=== PATIENT | male | born 1975 | race Caucasian/White ===

== ENCOUNTER 2022-08-24 13:02 | Day surgery (SDC) | payer OTHER, SELFPAY ==
--- NOTE | ~2022-08-24 | CT_ITS ---
EXAMINATION: CT ABDOMEN AND PELVIS WITH CONTRAST CLINICAL INFORMATION: Epigastric pain and vomiting COMPARISON: None available. TECHNIQUE: Multidetector volumetric images were obtained from the superior aspect of the liver through the pubic symphysis following administration 85 mL of Omnipaque 350 intravenous contrast. Sagittal and coronal reformatted images were obtained on the technologist's workstation. Oral contrast: Yes This CT examination was performed using dose optimization techniques as appropriate, variously including the following: *Automated exposure control *Adjustment of mA and/or kV according to patient size (this includes techniques or standardized protocols for targeted exams where dose is matched to indication/reason for exam; i.e. extremities or head) *Use of iterative reconstruction technique DLP: 957 mGy-cm FINDINGS: LUNG BASES: The visualized lung bases are clear. There is increased soft tissue mixed with air questionable for food material seen in the distal thoracic esophagus. There are small posterior mediastinal lymph nodes. No abnormal air collection or fluid collection is seen. LIVER, GALLBLADDER, AND BILIARY TREE: Fatty liver. 1 cm cyst in the right lobe of the liver. Normal gallbladder. No biliary duct dilatation. PANCREAS: Unremarkable. SPLEEN: Unremarkable. ADRENAL GLANDS: Unremarkable. KIDNEYS AND URETERS: I lateral renal cysts. No imaging follow-up recommended. The kidneys are otherwise normal. BLADDER: Unremarkable. GASTROINTESTINAL TRACT: Diverticulosis of the colon. No evidence of diverticulitis. The small and large bowel are otherwise unremarkable. The stomach is unremarkable. The appendix is unremarkable. ABDOMINAL WALL: Unremarkable. LYMPH NODES: Normal. VASCULAR: Unremarkable. PELVIC VISCERA: Unremarkable. OSSEOUS STRUCTURES: CT/CT abdomen pelvis w IV con IMPRESSION: Question food material seen in the distal thoracic esophagus. No wall thickening or adjacent abnormal fluid or air. Small adjacent posterior mediastinal lymph nodes. Fatty liver. Small liver and renal cysts. Diverticulosis of the colon. Fleischner guidelines were followed.
--- NOTE | 2022-08-24 13:24 | ED_ITS ---
HPI - General Adult General Chief complaint: Nausea/Vomiting/Diarrhea Stated complaint: spasm causing vomiting chest pain per ems Time Seen by Provider: 08/24/22 13:23 Source: patient Mode of arrival: ambulatory Limitations: no limitations History of Present Illness HPI narrative: Patient is a 47 year old assigned male at with no reported medical history presenting to the emergency department today with vomiting and possibly stuck steak. Patient states that approximately 20 hours ago, he ate a piece of steak and it never fully went down. Patient states that now whenever he tries to eat or drink, he throws up. Patient denies any dizziness, lightheadedness, abdominal pain, fever, chills, blurry vision, double vision, loss of vision, chest pain, difficulty breathing, shortness of breath, back pain, night sweats, pain with urination, increased urinary frequency, increased urinary urgency, blood in his urine or stool, syncope or a near syncopal episode, recent trauma or falls, bowel incontinence, bladder incontinence, bowel retention, bladder retention, or any other complaints at this time. Onset (ago): hour(s) Relieving factors: none Associated symptoms: denies other symptoms Treatments prior to arrival: none Related Data Allergies Allergy/AdvReac Type Severity Reaction Status Date / Time No Known Allergies Allergy Verified 08/24/22 13:28 Review of Systems Constitutional: Constitutional: Reports no additional constitutional complai nts, Denies chills, Denies fever(s) and Denies night sweats Eyes: Eyes: Reports no additional eye complaints, Denies blurry vision, Denies change in vision, Denies diplopia, Denies eye discharge, Denies loss of vision and Denies eye pain ENT: Denies dizziness Cardiovascular: Cardiovascular: Reports no additional cardiovascular complaints, Denies chest pain, Denies lightheadedness, Denies Loss of Consciousness and Denies dyspnea Respiratory: Respiratory: Reports no additional respiratory complaints and D enies dyspnea Gastrointestinal: Gastrointestinal: Reports no additional gastrointestinal complaints, Denies abdominal pain, Denies melena, Denies hematochezia, Denies change in bowel habits, Denies change in stool character and Reports vomiting Genitourinary: Genitourinary: Reports no additional male genitourinary complaints, Denies hematuria, Denies oliguria, Denies difficulty urinating, Denies dysuria, Denies urinary frequency, Denies urinary hesitancy, Denies urinary incontinence and Denies urinary urgency Musculoskeletal: Musculoskeletal: Reports no additional musculoskeletal complaints, Denies numbness and Denies tingling Neurologic: Denies dizziness, Denies loss of vision, Denies numbness and Denies tingling Psychiatric: Psychiatric: Reports no additional psychiatric complaints Endocrine: Endocrine: Reports no additional endocrine complaints Hematologic/Lymphatic: Hematologic/Lymphatic: Reports no additional hematologic/lymphatic complaints Allergic/Immunologic: Allergic/Immunologic: Reports no additional allergic/immunologic complaints [facility] Social History Social History Alcohol intake: current Alcohol intake frequency: a few times a week Alcohol type: hard liquor Patient Tobacco Use Status: Never used Tobacco Smoked in Last 30 Days: No Use of substances other than those prescribed or required for medical reasons: No Advance Directives: No Recently lost weight without trying: No Nutrition Risks: No Nutritional Risk Physical Exam ED Vital Signs: Vital Signs - 24 hr 08/24/22 13:25 08/24/22 16:25 Temperature 97.9 F 97.0 F Pulse Rate 87 80 Respiratory Rate 18 16 Blood Pressure 180/106 H 126/99 H Pulse Oximetry 100 98 Oxygen Delivery Method Room Air Room Air BMI result Body Mass Index 36.8 Medications Administered Discontinued Medications Generic Name Dose Route Start Last Admin Trade Name Freq PRN Reason Stop Dose Admin Al Hydroxide/Mg Hydroxide 15 ml 08/24/22 13:30 08/24/22 15:06 Magnesium Hydrox/Alum Hydrox 30 Ml Oral.Susp PO 08/24/22 13:31 Not Given ONCE ONE Glucagon 0.5 mg 08/24/22 13:54 08/24/22 14:08 Glucagon,Human Recombinant 1 Mg/Ml Vial IVPUSH 08/24/22 13:55 0.5 mg ONCE ONE Administration Sodium Chloride 1,000 mls @ 999 mls/hr 08/24/22 13:30 08/24/22 15:00 Ns IV 08/24/22 14:30 Infused .Q1H1M SULEIMAN Infusion Iohexol 100 ml 08/24/22 15:18 08/24/22 15:18 Iohexol 350 Mg/Ml 100 Ml Infus..Btl IV 08/24/22 15:19 85 ml ONCE ONE Administration Lidocaine HCl 15 ml 08/24/22 13:30 08/24/22 15:06 Lidocaine Hcl Viscous 2 % 15 Ml Solution MUCOUS MEM 08/24/22 13:31 Not Given ONCE ONE Nitroglycerin 0.4 mg 08/24/22 13:33 08/24/22 13:40 Nitroglycerin 0.4 Mg Tab.Subl SUBLINGUAL 08/24/22 13:34 0.4 mg ONCE ONE Administration Pantoprazole Sodium 40 mg 08/24/22 13:30 08/24/22 13:41 Pantoprazole Sodium 40 Mg/10 Ml Vial IVPUSH 08/24/22 13:31 40 mg ONCE ONE Administration Medical Decision Making Medical Decision Making [facility] Narrative: Patient is a 47 year old assigned male at with no reported medical history presenting to the emergency department today with a possibly stuck piece of steak. Patient's physical exam showed an individual unable to tolerate PO fluids. Patient's blood work was unremarkable. Patient's abdominal/pelvis CT showed a probable food bolus. Patient was given IV Glucagon and PO Nitro however, the patient was unable to tolerate the PO nitro. I called and spoke to the GI team on all who recommended the patient be sent to the OR for an endoscopy. I explained my physical exam findings as well as all test results to the patient and the patient's . I answered all questions asked by the patient and the patient's . Patient and the patient's verbalized agreement and understanding with this treatment plan and transfer to the OR for an endoscopy. . Differential Diagnosis Differential Diagnoses: The differential diagnosis associated with the presentation includes food bolus Consult Healthcare Provider Management of the patient was discussed with: Collateral Analyst (spoke to the GI team as noted in the MDM portion of this chart) Lab Data [facility] Lab Attestation statement: I reviewed the patient's lab results. 08/24/22 14:07 08/24/22 14:07 Labs: Lab Results 08/24/22 08/24/22 08/24/22 Range/Units 14:07 14:07 14:07 WBC 9.2 (4.8-10.8) X10*3/uL RBC 5.48 (4.60-5.80) X10*6/uL Hgb 15.9 (14.0-18.0) g/dl Hct 47.0 (42.0-52.0) % MCV 85.8 (80.0-98.0) fL MCH 29.0 (27.0-33.0) pg MCHC 33.8 (31.0-36.0) g/dl RDW 12.7 (11.0-16.0) % Plt Count 249 (160-400) X10*3/uL MPV 10.4 (9.4-12.4) fL Immature Gran % (Auto) 0.3 (0.0-0.4) % Neut % (Auto) 75.1 H (45-73) % Lymph % (Auto) 17.3 L (20-40) % [place] % (Auto) 6.2 (2-11) % Eos % (Auto) 0.7 (0-4) % Baso % (Auto) 0.4 (0-2) % Lymph # (Auto) 1.6 (1.2-4.9) X10*3/uL [place] # (Auto) 0.6 (0.1-1.2) X10*3/uL Eos # (Auto) 0.1 (0.0-0.4) X10*3/uL Baso # (Auto) 0.0 (0.0-0.2) X10*3/uL Abs Immat Gran (auto) 0.03 (0.00-0.03) X10*3/uL Absolute Neuts (auto) 6.9 (2.0-8.3) x10*3/uL Absolute Nucleated RBC 0.000 (0.0-0.012) X10*3/uL Nucleated RBC % (auto) 0.0 (0.0-0.2) /100WBC Sodium 144 (135-145) mmol/L Potassium 3.7 (3.3-5.1) mmol/L Chloride 111 H (96-108) mmol/L Carbon Dioxide 23 (22-29) mmol/L Anion Gap 14 (12-20) BUN 16 (9-16) mg/dL Creatinine 0.88 (0.5-1.4) mg/dL Estim Creat Clear Calc 132.0 Estimated GFR > 60 Random Glucose 111 (60-115) mg/dL Calcium 9.2 (8.4-10.2) mg/dL Magnesium 2.1 (1.6-2.6) mg/dL Total Bilirubin 0.6 (0.0-1.0) mg/dL AST 27 (5-37) U/L ALT 33 (0-40) U/L Alkaline Phosphatase 68 (39-117) U/L Troponin I High Sens (<3.5-35.0) ng/L B-Natriuretic Peptide 33 (<100) pg/mL Total Protein 7.6 (6.5-8.0) g/dL Albumin 4.3 (3.5-5.0) g/dL 08/24/22 Range/Units 14:07 WBC (4.8-10.8) X10*3/uL RBC (4.60-5.80) X10*6/uL Hgb (14.0-18.0) g/dl Hct (42.0-52.0) % MCV (80.0-98.0) fL MCH (27.0-33.0) pg MCHC (31.0-36.0) g/dl RDW (11.0-16.0) % Plt Count (160-400) X10*3/uL MPV (9.4-12.4) fL Immature Gran % (Auto) (0.0-0.4) % Neut % (Auto) (45-73) % Lymph % (Auto) (20-40) % [place] % (Auto) (2-11) % Eos % (Auto) (0-4) % Baso % (Auto) (0-2) % Lymph # (Auto) (1.2-4.9) X10*3/uL [place] # (Auto) (0.1-1.2) X10*3/uL Eos # (Auto) (0.0-0.4) X10*3/uL Baso # (Auto) (0.0-0.2) X10*3/uL Abs Immat Gran (auto) (0.00-0.03) X10*3/uL Absolute Neuts (auto) (2.0-8.3) x10*3/uL Absolute Nucleated RBC (0.0-0.012) X10*3/uL Nucleated RBC % (auto) (0.0-0.2) /100WBC Sodium (135-145) mmol/L Potassium (3.3-5.1) mmol/L Chloride (96-108) mmol/L Carbon Dioxide (22-29) mmol/L Anion Gap (12-20) BUN (9-16) mg/dL Creatinine (0.5-1.4) mg/dL Estim Creat Clear Calc Estimated GFR Random Glucose (60-115) mg/dL Calcium (8.4-10.2) mg/dL Magnesium (1.6-2.6) mg/dL Total Bilirubin (0.0-1.0) mg/dL AST (5-37) U/L ALT (0-40) U/L Alkaline Phosphatase (39-117) U/L Troponin I High Sens 4.5 (<3.5-35.0) ng/L B-Natriuretic Peptide (<100) pg/mL Total Protein (6.5-8.0) g/dL Albumin (3.5-5.0) g/dL Independent Interpretation I performed an independent interpretation of an: CT Scan Interpretation: My interpretation is in agreement with the radiologist's impression of this imaging study. EXAMINATION: CT ABDOMEN AND PELVIS WITH CONTRAST? CLINICAL INFORMATION: Epigastric pain and vomiting? COMPARISON: None available. TECHNIQUE: Multidetector volumetric images were obtained from the superior aspect of the liver through the pubic symphysis following administration 85 mL of Omnipaque 350 intravenous contrast. Sagittal and coronal reformatted images were obtained on the technologist's workstation.? Oral contrast: Yes This CT examination was performed using dose optimization techniques as appropriate, variously including the following: *Automated exposure control *Adjustment of mA and/or kV according to patient size (this includes techniques or standardized protocols for targeted exams where dose is matched to indication/reason for exam; i.e. extremities or head) *Use of iterative reconstruction technique DLP: 957 mGy-cm FINDINGS: LUNG BASES: The visualized lung bases are clear. There is increased soft tissue mixed with air questionable for food material seen in the distal thoracic esophagus. There are small posterior mediastinal lymph nodes. No abnormal air collection or fluid collection is seen. LIVER, GALLBLADDER, AND BILIARY TREE: Fatty liver. 1 cm cyst in the right lobe of the liver. Normal gallbladder. No biliary duct dilatation. PANCREAS: Unremarkable.? SPLEEN: Unremarkable.? ADRENAL GLANDS: Unremarkable.? KIDNEYS AND URETERS: I lateral renal cysts. No imaging follow-up recommended. The kidneys are otherwise normal.? BLADDER: Unremarkable.? GASTROINTESTINAL TRACT: Diverticulosis of the colon. No evidence of diverticulitis. The small and large bowel are otherwise unremarkable. The stomach is unremarkable. The appendix is unremarkable.? ABDOMINAL WALL: Unremarkable. LYMPH NODES: Normal. VASCULAR: Unremarkable. PELVIC VISCERA: Unremarkable.? OSSEOUS STRUCTURES: CT/CT abdomen pelvis w IV con IMPRESSION: Question food material seen in the distal thoracic esophagus. No wall thickening or adjacent abnormal fluid or air. Small adjacent posterior mediastinal lymph nodes. Fatty liver. Small liver and renal cysts. Diverticulosis of the colon. ? Fleischner guidelines were followed. Dictated By: Pao Powers MD Signed By: Electronically signed by Pao Powers MD 08/24/22 3714 Independent Historian Clinical information obtained from an independent historian. History obtained from or confirmed by: Spouse Critical Care Time Critical Care Time Critical Care Time: Yes Total Critical Care Time: 45 Attestation: I spent 45 minutes of Critical Care Time with this patient. This does not i nclude time spent on separately reported billable procedures. Discharge Plan Discharge Clinical Impression: Food bolus obstruction of intestine Patient Disposition: Xfer Other Transfer Details: transfer to surgery
[2022-08-24 13:25] VITALS: BP 180/100; BP 180/106; PULSE 70; PULSE 87; RESP 18; TEMP 36.6; O2SAT 100; O2SAT 97; BMI 30.6
--- NOTE | 2022-08-24 13:30 | ECG_ITS ---
Test Reason : epigrastric pain Blood Pressure : / mmHG Vent. Rate : 078 BPM Atrial Rate : 078 BPM P-R Int : 128 ms QRS Dur : 086 ms QT Int : 386 ms P-R-T Axes : 018 -24 026 degrees QTc Int : 440 ms Normal sinus rhythm with sinus arrhythmia Moderate voltage criteria for LVH, may be normal variant ( R in aVL , Derrell product ) Borderline ECG No previous ECGs available Referred By: Danni Dang Electronically Signed By:JULISSA HERNANDEZ
[2022-08-24] MEDS: Nitroglycerin 0.4 MG TAB.SUBL SUBLINGUAL (13:40)
[2022-08-24] MEDS: Pantoprazole Sodium 40 MG/10 ML VIAL IVPUSH (13:41)
[2022-08-24] MEDS: 0.9 % Sodium Chloride 1,000 ML 999 ML IV (13:43)
[2022-08-24 14:14] LABS: MANUAL DIFF FLAG NO
[2022-08-24 14:15] LABS: Basophils Percent Auto 0.4 % (0-2); Eosinophils Absolute Auto 0.1 X10*3/uL (0.0-0.4); Eosinophils Percent Auto 0.7 % (0-4); Hemoglobin 15.9 g/dl (14.0-18.0); Imm Gran Abs Auto 0.03 X10*3/uL (0.00-0.03); Imm Gran Pct Auto 0.3 % (0.0-0.4); Lymphocytes Absolute Auto 1.6 X10*3/uL (1.2-4.9); Lymphocytes Percent Auto 17.3 % (20-40); Mean Corpuscular HGB Conc 33.8 g/dl (31.0-36.0); Mean Corpuscular Volume 85.8 fL (80.0-98.0); Mean Platelet Volume 10.4 fL (9.4-12.4); Monocytes Absolute Auto 0.6 X10*3/uL (0.1-1.2); Monocytes Percent Auto 6.2 % (2-11); Neutrophils Absolute Auto 6.9 x10*3/uL (2.0-8.3); Neutrophils Percent Auto 75.1 % (45-73); Platelet Count 249 X10*3/uL (160-400); Red Blood Count 5.48 X10*6/uL (4.60-5.80); Red Cell Distribution Width 12.7 % (11.0-16.0); White Blood Count 9.2 X10*3/uL (4.8-10.8)
[2022-08-24 14:34] LABS: Alanine Aminotransferase 33 U/L (0-40); Albumin Level 4.3 g/dL (3.5-5.0); Alkaline Phosphatase 68 U/L (39-117); Anion Gap 14 (12-20); Aspartate Amino Transferase 27 U/L (5-37); Bilirubin Total 0.6 mg/dL (0.0-1.0); Blood Urea Nitrogen 16 mg/dL (9-16); Calcium 9.2 mg/dL (8.4-10.2); Carbon Dioxide 23 mmol/L (22-29); Chloride 111 mmol/L (96-108); Estimated Glomerular Filt Rate > 60; Glucose Random 111 mg/dL (60-115); Magnesium 2.1 mg/dL (1.6-2.6); Potassium 3.7 mmol/L (3.3-5.1); Sodium 144 mmol/L (135-145); Total Protein 7.6 g/dL (6.5-8.0)
--- NOTE | 2022-08-24 14:38 | PC.NURSE ---
Per Danni RUIZ: Hold GI cocktail until Glucogen IV works or 2nd Dose Oral nitro is administered.
[2022-08-24 14:39] LABS: B Type Natriuretic Peptide 33 pg/mL (<100)
[2022-08-24 14:41] LABS: Troponin-I High Sensitivity 4.5 ng/L (<3.5-35.0)
[2022-08-24] MEDS: iohexoL 350 MG/ML 100 ML INFUS..BTL IV (15:18)
[2022-08-24 16:25] VITALS: BP 126/99; PULSE 80; RESP 16; TEMP 36.1; O2SAT 98
[2022-08-24 17:21] VITALS: BMI 36.8
--- NOTE | 2022-08-24 18:06 | PM.EVENT ---
Event Note Date of Service: 08/24/22 Event Note: GI consult dictated EGD for removal of foreign body. Patient is aware of risks and benefits and agrees to proceed Time Spent With Patient Time: Total time managing care of this patient today ____ minutes.
--- NOTE | 2022-08-24 18:08 | MHC.SHP ---
Pre-Procedural Eval Section A Date of Service: 08/24/22 The patient is an INPATIENT: No Changes since office visit: No Cold of Flu in the past 2 weeks, No New Medical Problems, No Changes in Medication and No Patient answered all questions The History & Physical has been completed within 30 days and I have reviewed it.: Yes Section B Chief Complaint: spasm causing vomiting chest pain per ems Allergies: Allergies Allergy/AdvReac Type Severity Reaction Status Date / Time No Known Allergies Allergy Verified 08/24/22 13:28 Plan I have reviewed the history and physical and performed a pertinent physical examination on my patient. No changes have occurred unless specified. Time Spent With Patient Time: Total time managing care of this patient today ____ minutes.
--- NOTE | 2022-08-24 18:10 | HO.ANESPROP2 ---
HPI - Anesthesia Eval Consult details Narrative: food bolus [facility] Family History Family history of problems with anesthesia: No Surgical History History of Problems with Anesthesia: No Social History Social History Alcohol intake: current Alcohol intake frequency: a few times a week Alcohol type: hard liquor Patient Tobacco Use Status: Never used Tobacco Smoked in Last 30 Days: No Use of substances other than those prescribed or required for medical reasons: No Advance Directives: No Recently lost weight without trying: No Nutrition Risks: No Nutritional Risk Meds Allergies Allergy/AdvReac Type Severity Reaction Status Date / Time No Known Allergies Allergy Verified 08/24/22 13:28 Exam Exam Date and Time: August 24, 2022 1810 Height,Weight and Vital Signs: Height 6 ft 1 in Weight 126.552 kg Last Vital Signs Temp 97.0 F 08/24/22 16:25 Pulse 80 08/24/22 16:25 Resp 16 08/24/22 16:25 BP 126/99 H 08/24/22 16:25 Pulse Ox 98 08/24/22 16:25 O2 Del Method Room Air 08/24/22 16:25 Pertinent Lab Results Pertinent Lab Results: Laboratory Tests 08/24/22 08/24/22 08/24/22 14:07 14:07 14:07 WBC 9.2 RBC 5.48 Hgb 15.9 Hct 47.0 MCV 85.8 MCH 29.0 MCHC 33.8 RDW 12.7 Plt Count 249 MPV 10.4 Immature Gran % (Auto) 0.3 Neut % (Auto) 75.1 H Lymph % (Auto) 17.3 L [place] % (Auto) 6.2 Eos % (Auto) 0.7 Baso % (Auto) 0.4 Lymph # (Auto) 1.6 [place] # (Auto) 0.6 Eos # (Auto) 0.1 Baso # (Auto) 0.0 Abs Immat Gran (auto) 0.03 Absolute Neuts (auto) 6.9 Absolute Nucleated RBC 0.000 Nucleated RBC % (auto) 0.0 Sodium 144 Potassium 3.7 Chloride 111 H Carbon Dioxide 23 Anion Gap 14 BUN 16 Creatinine 0.88 Estim Creat Clear Calc 132.0 Estimated GFR > 60 Random Glucose 111 Calcium 9.2 Magnesium 2.1 Total Bilirubin 0.6 AST 27 ALT 33 Alkaline Phosphatase 68 Troponin I High Sens B-Natriuretic Peptide 33 Total Protein 7.6 Albumin 4.3 08/24/22 14:07 WBC RBC Hgb Hct MCV MCH MCHC RDW Plt Count MPV Immature Gran % (Auto) Neut % (Auto) Lymph % (Auto) [place] % (Auto) Eos % (Auto) Baso % (Auto) Lymph # (Auto) [place] # (Auto) Eos # (Auto) Baso # (Auto) Abs Immat Gran (auto) Absolute Neuts (auto) Absolute Nucleated RBC Nucleated RBC % (auto) Sodium Potassium Chloride Carbon Dioxide Anion Gap BUN Creatinine Estim Creat Clear Calc Estimated GFR Random Glucose Calcium Magnesium Total Bilirubin AST ALT Alkaline Phosphatase Troponin I High Sens 4.5 B-Natriuretic Peptide Total Protein Albumin Airway Mallampati Class: II TM Dist: >3cm Neck ROM: Full Loose/Missing/Broken Teeth: Yes and Upper (some broken molars, stable though) Heart: RRR Lungs: CTA Assessment and Plan Assessment Anesthesia Assessment: Anesthesia Plan Discussed and Chart Reviewed Final Anesthetic Review Family History of Problems with Anesthesia: No History of Problems with Anesthesia: No NPO: No ASA Class: II Final Preanesthetic Review: No Changes in Pt Med Stat, Meds/Allgs Chart Reviewed, Consent Obtained/Reviewed and Anes Risks/Benef Reviewed Patient Risk: Intermediate Procedure Risk: Low Anesthetic Plan Anesthetic Plan: MAC: Disposition: Standard PACU
--- NOTE | 2022-08-24 18:42 | PC.NURSE ---
Patient was brought to PACU for endoscopy at 1700 this evening. this RN had no contact w/ patient
[2022-08-24 18:48] VITALS: BP 158/90; PULSE 76; RESP 16; TEMP 36.5; O2SAT 94
--- NOTE | 2022-08-24 18:49 | PM.OP ---
Brief Operative Note Date of Service: 08/24/22 Pre-op diagnosis: fb esophagus Post-op diagnosis: same Surgeon: Amari Funk Anesthesia: MAC Was an Hair Worker used for this Procedure?: No Estimated blood loss (mL): 2 Pathology: none sent Condition: stable Disposition: PACU
[2022-08-24 19:01] VITALS: BP 156/86; PULSE 62; RESP 16; TEMP 36.5; O2SAT 96
--- NOTE | 2022-08-25 04:01 | CONS_ITS ---
DATE OF SERVICE: 08/24/2022 REFERRING PHYSICIAN: SARA Alvarez REASON FOR CONSULTATION: Foreign body of the esophagus. HISTORY OF PRESENT ILLNESS: The patient is a pleasant 47-year-old man, who was admitted to the emergency department with complaints of dysphagia, which began yesterday when he swallowed steak. This became impacted and he has been unable to swallow solid food or liquid sense. He has had history of esophageal dysphagia in the past, but generally things have passed on their own. He has not had endoscopy in the past. He does use [id number] antacids on a p.r.n. basis. PAST MEDICAL HISTORY: He denies other medical or surgical illnesses. His blood pressure has been noted to be elevated in the preop area. CURRENT MEDICATIONS: None. ALLERGIES: NONE. FAMILY HISTORY: This is reviewed with the patient and is noncontributory. SOCIAL HISTORY: There is no current tobacco use. Alcohol use is 2 to 3 drinks per day on the weekend with his last alcohol being the day before the food impaction started. REVIEW OF SYSTEMS: SKIN: No pruritus. HEENT: Negative. CARDIOPULMONARY: No shortness of breath or chest pain. GASTROINTESTINAL: As above. GENITOURINARY: Negative. NEUROPSYCHIATRIC: Negative. PHYSICAL EXAMINATION: GENERAL: Shows a pleasant male, sitting comfortably on a stretcher. VITAL SIGNS: Reviewed in the electronic medical record and are stable. SKIN: Anicteric. HEENT: Shows no scleral icterus. NECK: Without lymphadenopathy or thyromegaly. LUNGS: Clear. HEART: Shows a regular rate and rhythm. S1, S2. No murmur. ABDOMEN: Soft without focal masses or tenderness. Bowel sounds are present. No organomegaly is noted. EXTREMITIES: Without edema. IMPRESSION: Foreign body of the esophagus. PLAN: Upper endoscopy. Risks and benefits of the procedure have been discussed with the patient who understands and agrees to proceed. MD EMBER Villafuerte/LIDIA / [id number]
--- NOTE | 2022-08-25 04:06 | OP_ITS ---
DATE OF SERVICE: 08/24/2022 SURGEON: Amari Funk MD INDICATIONS: Foreign body in the esophagus, medications. PREOPERATIVE DIAGNOSIS: POSTOPERATIVE DIAGNOSIS: PROCEDURE PERFORMED: Upper endoscopy with removal of esophageal foreign body. ESTIMATED BLOOD LOSS: COMPLICATIONS: ANESTHESIA: Monitored anesthesia care. ASSISTANTS: SPECIMENS: DESCRIPTION OF PROCEDURE: A history and physical was performed. The risks and benefits of the procedure were explained to the patient. Informed consent was obtained. The patient was placed in the left lateral decubitus position. The Olympus video gastroscope was introduced into the esophagus, stomach, and duodenum. Examination was performed. The scope was removed. He tolerated the procedure well and was returned to recovery area in stable condition. FINDINGS: Esophagus: There was a large food bolus impacted in the distal esophagus. This was gently pushed through into the stomach. There was some associated ulceration at the EG junction and a questionable small slight Schatzki ring. The scope did pass easily through into the stomach. Stomach: The stomach was normal. Duodenum: The bulb and second portion were normal. IMPRESSION: Esophageal food bolus as above. RECOMMENDATION: 1. Begin omeprazole 20 mg daily. 2. Repeat endoscopy in 12 weeks for reassessment of esophagitis and possible balloon dilation if necessary. MD EMBER Villafuerte/MODL / [id number]
== END 2022-08-24 19:04 | disposition home or self-care (01) ==
LOC: HO.ED 18:00 → HO.SSS 18:26
PROVIDERS: Physician Assistant Medical; Emergency Provider Emergency Medicine; Visit Provider Internal Medicine Gastroenterology
PROC: 0DJ08ZZ Inspection of Upper Intestinal Tract, Via Natural or Artificial Opening Endoscopic (ICD-10-PCS; CPT 43235; principal; 2022-08-24 18:00)
DX: T18.128A Food in esophagus causing other injury, initial encounter (principal); X58.XXXA Exposure to other specified factors, initial encounter; Y93.89 Activity, other specified; Y92.9 Unspecified place or not applicable; Y99.8 Other external cause status; R03.0 Elevated blood-pressure reading, without diagnosis of hypertension
CPT/HCPCS: 43247; 36415; 74177; 80053; 83735; 83880; 84484; 85025; 93005; 96361; 96374; 96375; 99285; J1610; J3010; Q9967

== ENCOUNTER 2022-11-17 07:41 | Day surgery (SDC) | payer OTHER, SELFPAY ==
[2022-11-17 07:49] VITALS: BMI 35.3
[2022-11-17 08:00] VITALS: BP 147/96; PULSE 67; RESP 20; TEMP 36.6; O2SAT 96
[2022-11-17] MEDS: Lactated Ringers 1,000 ML 100 ML IVCONT (08:12)
--- NOTE | 2022-11-17 08:31 | HO.ANESPROP2 ---
[facility] Past Medical History Medical History History of asthma Tooth ache Family History Family history of problems with anesthesia: No Surgical History Surgical History History of esophagogastroduodenoscopy (EGD) [place] teeth extracted History of Problems with Anesthesia: No Social History Social History Alcohol intake: current Alcohol intake frequency: a few times a week Alcohol type: hard liquor Patient Tobacco Use Status: Never used Tobacco Are you DNR?: No Advance Directives: No Advance Directives Information Provided: Yes Recently lost weight without trying: No Nutrition Risks: No Nutritional Risk Meds Allergies Allergy/AdvReac Type Severity Reaction Status Date / Time No Known Allergies Allergy Verified 08/24/22 13:28 Active Medications: Current Medications Lactated Ringer's (Lr) 1,000 mls @ 100 mls/hr IVCONT .Q10H SULEIMAN Last Admin: 11/17/22 08:12 Dose: 100 mls/hr Exam Exam Date and Time: November 17, 2022 0831 Height,Weight and Vital Signs: Height 6 ft 2 in Weight 124.738 kg Last Vital Signs Temp 98 F 11/17/22 08:00 Pulse 67 11/17/22 08:00 Resp 20 11/17/22 08:00 BP 147/96 H 11/17/22 08:00 Pulse Ox 96 11/17/22 08:00 O2 Del Method Room Air 11/17/22 08:00 Airway Mallampati Class: II TM Dist: >3cm Neck ROM: Full Loose/Missing/Broken Teeth: No Heart: RRR Lungs: CTA Assessment and Plan Assessment Anesthesia Assessment: Anesthesia Plan Discussed and Chart Reviewed Final Anesthetic Review Family History of Problems with Anesthesia: No History of Problems with Anesthesia: No NPO: Yes ASA Class: II Final Preanesthetic Review: Meds/Allgs Chart Reviewed, Consent Obtained/Reviewed and Anes Risks/Benef Reviewed Patient Risk: Low Procedure Risk: Intermediate Anesthetic Plan Anesthetic Plan: MAC: Disposition: Standard PACU
--- NOTE | 2022-11-17 08:36 | PC.NURSE ---
pt sts swallowed gauge fron his tooth extraction around midnight and took naproxen wednesday anesthesia aware
--- NOTE | 2022-11-17 09:17 | PM.OP ---
Brief Operative Note Date of Service: 11/17/22 Pre-op diagnosis: dysphagia Post-op diagnosis: same Procedure: EGD Surgeon: Amari Funk Anesthesia: MAC Was an Continuous Improvement Coordinator used for this Procedure?: No Estimated blood loss (mL): 5 Pathology: other Condition: stable Disposition: PACU
[2022-11-17 09:24] VITALS: BP 124/75; PULSE 82; RESP 18; TEMP 36.4; O2SAT 96
[2022-11-17 09:40] VITALS: BP 137/84; PULSE 61; RESP 18; TEMP 36.1; O2SAT 96
--- NOTE | 2022-11-17 12:35 | OP_ITS ---
DATE OF SERVICE: 11/17/2022 SURGEON: Amari Funk MD INDICATIONS: History of dysphagia and esophageal obstruction. PREOPERATIVE DIAGNOSIS: POSTOPERATIVE DIAGNOSIS: PROCEDURE PERFORMED: Upper endoscopy with biopsy and balloon dilation. ESTIMATED BLOOD LOSS: COMPLICATIONS: ANESTHESIA: Monitored anesthesia care. ASSISTANTS: SPECIMENS: DESCRIPTION OF PROCEDURE: A history and physical was performed. The risks and benefits of the procedure were explained to the patient. Informed consent was obtained. The patient was placed in the left lateral decubitus position. The Olympus video gastroscope was introduced into the esophagus, stomach, and duodenum. Examination was performed. The scope was removed. He tolerated the procedure well and was returned to the recovery area in stable condition. 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 Biopsies were obtained after balloon dilation. There was a nonobstructive Schatzki ring at the EG junction and a 3 cm hiatal hernia. Balloon dilation of the ring to 18 and 20 mm was performed through the scope with no immediate complications. Stomach: The stomach was normal. Duodenum: The bulb and 2nd portion were normal. IMPRESSION: 1. Schatzki ring. 2. Hiatal hernia. RECOMMENDATION: Follow up the biopsy results. MD EMBER Villafuerte/LIDIA / [phone]
== END 2022-11-17 09:54 | disposition home or self-care (01) ==
PROVIDERS: Visit Provider Internal Medicine Gastroenterology
PROC: 0DJ08ZZ Inspection of Upper Intestinal Tract, Via Natural or Artificial Opening Endoscopic (ICD-10-PCS; CPT 43235; principal; 2022-11-17 08:50)
DX: R13.10 Dysphagia, unspecified (principal); K22.2 Esophageal obstruction; K21.9 Gastro-esophageal reflux disease without esophagitis; K44.9 Diaphragmatic hernia without obstruction or gangrene
CPT/HCPCS: 43249; 43239; 88305; C1726; J0330; J3010

== ENCOUNTER 2023-12-08 07:49 | Inpatient (IN) | payer MEDICAID, SELFPAY ==
[2023-12-08] VITALS (7 sets, daily range): BP systolic 118–147; BP diastolic 57–87; PULSE 77–99; RESP 16–20; TEMP 36.5–37.2; O2SAT 94–98; BMI 37.3; BMI 37.8
--- NOTE | ~2023-12-08 | CT_ITS ---
EXAMINATION: CT ABDOMEN AND PELVIS WITH CONTRAST CLINICAL INFORMATION: Abdominal pain COMPARISON: August 24, 2022 TECHNIQUE: Multidetector volumetric images were obtained from the superior aspect of the liver through the pubic symphysis following administration 85 mL of Omnipaque 350 intravenous contrast. Sagittal and coronal reformatted images were obtained on the technologist's workstation. Oral contrast: No This CT examination was performed using dose optimization techniques as appropriate, variously including the following: *Automated exposure control *Adjustment of mA and/or kV according to patient size (this includes techniques or standardized protocols for targeted exams where dose is matched to indication/reason for exam; i.e. extremities or head) *Use of iterative reconstruction technique DLP: 1020 mGy-cm FINDINGS: LUNG BASES: There is dense acoustic atelectasis at the right lung base LIVER, GALLBLADDER, AND BILIARY TREE: Liver is somewhat attenuation due to hepatic steatosis and enlarged. There are no intrahepatic masses or ductal dilatation. The gallbladder is unremarkable with no evidence of radiopaque gallstones, gallbladder wall thickening, or obvious pericholecystic inflammatory changes. PANCREAS: Unremarkable. SPLEEN: Spleen is mildly enlarged, measuring 14.2 cm ADRENAL GLANDS: Unremarkable. KIDNEYS AND URETERS: There is perinephric stranding on the right with questionable subcapsular fluid collection possibly due to hematoma versus abscess. The collection measured 8.2 x 6.3 x 3.8 cm. There is no hydronephrosis or nephrolithiasis. There is cyst visualized medially in the lower pole, measured 2.2 x 1.6 cm. Left kidney revealed small cyst in the lower pole. BLADDER: Unremarkable. GASTROINTESTINAL TRACT: The small and large bowel are unremarkable. The appendix is unremarkable. ABDOMINAL WALL: No significant hernia is appreciated. LYMPH NODES: Normal. VASCULAR: Unremarkable. PELVIC VISCERA: Unremarkable. OSSEOUS STRUCTURES: Unremarkable. CT/CT abdomen pelvis w IV con IMPRESSION: 1. Right perinephric stranding with questionable subcapsular fluid collection possibly due to hematoma versus abscess. 2. Right basilar atelectasis. 3. Hepatosplenomegaly. 4. Bilateral renal cysts. Fleischner guidelines were followed. Electronically signed by: Lizzeth Santana MD 12/08/2023 02:37 PM EDT
--- NOTE | ~2023-12-08 | US_ITS ---
EXAMINATION: US RETROPERITONEAL COMPLETE (RENAL) CLINICAL INFORMATION: Follow-up right renal subcapsular collection. COMPARISON: CT abdomen/pelvis 12/08/2023. TECHNIQUE: Real-time imaging of the kidneys and bladder. FINDINGS: Limited examination secondary to patient body habitus, motion and overlying bowel gas. RIGHT KIDNEY: 12.8 x 5.8 x 5 cm (SAG x AP x TRV). Redemonstration of complex subcapsular collection measuring 7.7 x 3 x 5.9 cm, minimally decreased compared to recent CT where it measured up to 8.4 cm, although accurate size comparison is limited due to differences in modality. No hydronephrosis. LEFT KIDNEY: 14.6 x 5.9 x 5.6 cm (SAG x AP x TRV). The kidney is normal in size, contour, and echogenicity. Renal cortical thickness is normal. No hydronephrosis. Simple appearing 1.2 cm cyst in the lower pole. Nonobstructive 0.6 cm calculus in the interpolar region. US/US renal BI IMPRESSION: Limited examination secondary to patient body habitus, motion and overlying bowel gas. 1. Redemonstration of complex subcapsular collection in the right kidney, minimally decreased in size compared to recent CT. 2. Nonobstructive 0.6 cm calculus in the interpolar region of the left kidney. Electronically signed by: Alexa Sahu MD 12/11/2023 10:52 AM EDT
[2023-12-08 08:32] LABS: Basophils Absolute Auto 0.1 X10*3/uL (0.0-0.2); Basophils Percent Auto 0.4 % (0-2); Eosinophils Absolute Auto 0.1 X10*3/uL (0.0-0.4); Eosinophils Percent Auto 0.5 % (0-4); Hematocrit 39.7 % (42.0-52.0); Hemoglobin 13.6 g/dl (14.0-18.0); Imm Gran Abs Auto 0.09 X10*3/uL (0.00-0.03); Imm Gran Pct Auto 0.6 % (0.0-0.4); Lymphocytes Absolute Auto 1.6 X10*3/uL (1.2-4.9); Lymphocytes Percent Auto 10.2 % (20-40); MANUAL DIFF FLAG SCAN; Mean Corpuscular HGB Conc 34.3 g/dl (31.0-36.0); Mean Corpuscular Hemoglobin 29.2 pg (27.0-33.0); Mean Corpuscular Volume 85.4 fL (80.0-98.0); Mean Platelet Volume 9.6 fL (9.4-12.4); Monocytes Absolute Auto 1.5 X10*3/uL (0.1-1.2); Monocytes Percent Auto 9.9 % (2-11); Neutrophils Absolute Auto 12.1 x10*3/uL (2.0-8.3); Neutrophils Percent Auto 78.4 % (45-73); Platelet Count 287 X10*3/uL (160-400); Red Blood Count 4.65 X10*6/uL (4.60-5.80); SCAN SMEAR FLAG 1; White Blood Count 15.4 X10*3/uL (4.8-10.8)
[2023-12-08 08:45] LABS: Alanine Aminotransferase 15 U/L (0-40); Albumin Level 3.6 g/dL (3.5-5.0); Alkaline Phosphatase 71 U/L (39-117); Anion Gap 13 (12-20); Aspartate Amino Transferase 28 U/L (5-37); Bilirubin Direct 0.3 mg/dL (0.0-0.5); Bilirubin Total 0.7 mg/dL (0.0-1.0); Blood Urea Nitrogen 19 mg/dL (9-16); Carbon Dioxide 26 mmol/L (22-29); Chloride 101 mmol/L (96-108); Creatinine Clr Calc Pharmacy 104.7; Estimated Glomerular Filt Rate > 60; Glucose Random 119 mg/dL (60-115); Lipase 24 U/L (8-78); Potassium 4.3 mmol/L (3.3-5.1); Sodium 136 mmol/L (135-145); Total Protein 8.5 g/dL (6.5-8.0)
--- NOTE | 2023-12-08 09:24 | PC.NURSE ---
a&ox4. vss and up to date. pt presents to the ED w/ constant right sided flank pain radiating to across lower abdomen x . pt reports going to clinic - prescribed abx - currently finishing course at this time. did not take dose this am. pt advised to come to ED if pain increases. pt reports pain is a 6/10 pain at rest but 10/10 pain w/ increased movement. pt endorses nausea w/ increased pain. denies any diarrhea/fever/chills. 20gIV placed in the right AC. labs obtained in triage. no sob/wob noted. respirations even/unlabored. plan of care ongoing. call stephen placed within reach.
--- NOTE | 2023-12-08 09:28 | ED.GENADULT ---
HPI - General Adult General Chief complaint: Abdominal Pain Stated complaint: infection refusing antibiotics Time Seen by Provider: 12/08/23 09:28 Source: patient Mode of arrival: ambulatory Limitations: no limitations History of Present Illness ED Provider: Danni Dang PA-C HPI narrative: 48 year old male with medical history of asthma presents to the ED for concerns of new onset right sided flank pain that started 6 days ago. He reports visiting a walk-in clinic for right sided flank pain on 12/02 and they suggested it might be kidney stones versus an infection of his kidney. He received Bactrim from the walk-in clinic which he is currently taking and was told if symptoms worsen or don't improve he should report to the ED for further evaluation. He states the flank pain never improved so he decided to report to the ED. He reports feeling feverish yesterday however did not check his temperature at home. He denies, chills, nausea, vomiting, increase in urinary frequency, dysuria, dizziness, falls or trauma. Onset (ago): day(s) (6) Location: right (flank) Severity: moderate Severity scale (1-10): 6 Pain Consistency: constant Relieving factors: none Exacerbating factors: none Associated symptoms: denies other symptoms Treatments prior to arrival: other (Bactrim) Related Data Home Medications ?Medication ?Instructions ?Recorded ?Confirmed omeprazole 20 mg tablet,delayed 20 mg PO DAILY 12/08/23 12/08/23 release sulfamethoxazole 800 1 tab PO BID 12/08/23 12/08/23 mg-trimethoprim 160 mg tablet Allergies Allergy/AdvReac Type Severity Reaction Status Date / Time No Known Allergies Allergy Verified 12/08/23 08:09 Review of Systems Constitutional: Constitutional: Reports no additional constitutional complaints, Denies chills, Denies fever(s) and Denies night sweats Eyes: Eyes: Reports no additional eye complaints, Denies blurry vision, Denies change in vision, Denies diplopia, Denies eye discharge, Denies loss of vision and Denies eye pain ENT: Denies dizziness Cardiovascular: Cardiovascular: Reports no additional cardiovascular complaints, Denies chest pain, Denies lightheadedness, Denies Loss of Consciousness and Denies dyspnea Respiratory: Respiratory: Reports no additional respiratory complaints and Denies dyspnea Gastrointestinal: Gastrointestinal: Reports no additional gastrointestinal complaints, Denies abdominal pain, Denies melena, Denies hematochezia, Denies change in bowel habits and Denies change in stool character Genitourinary: Genitourinary: Reports no additional male genitourinary complaints, Denies hematuria, Denies oliguria, Denies difficulty urinating, Denies dysuria, Denies urinary frequency, Denies urinary hesitancy, Denies urinary incontinence and Denies urinary urgency Comments: right flank pain Musculoskeletal: Musculoskeletal: Reports no additional musculoskeletal complaints, Denies numbness and Denies tingling Neurologic: Denies dizziness, Denies loss of vision, Denies numbness and Denies tingling Psychiatric: Psychiatric: Reports no additional psychiatric complaints Endocrine: Endocrine: Reports no additional endocrine complaints Hematologic/Lymphatic: Hematologic/Lymphatic: Reports no additional hematologic/lymphatic complaints Allergic/Immunologic: Allergic/Immunologic: Reports no additional allergic/immunologic complaints [facility] Past Medical History Attestation statement: The following information was validated with the patient. Source: old records reviewed and nursing notes reviewed Medical History Tooth ache History of asthma Surgical History [place] teeth extracted History of esophagogastroduodenoscopy (EGD) Social History Social History Alcohol intake: current Alcohol intake frequency: holidays/special occasions only Alcohol type: hard liquor Patient Tobacco Use Status: Never used Tobacco Smoked in Last 30 Days: No Use of substances other than those prescribed or required for medical reasons: No Advance Directives: No Advance Directives Information Provided: No Do you have a plan to hurt others: No Plan Physical Exam ED Vital Signs: Vital Signs - 24 hr 12/08/23 08:04 12/08/23 10:00 12/08/23 12:00 Temperature 98.8 F 98.2 F 98.8 F Pulse Rate 88 85 77 Respiratory Rate 18 18 18 Blood Pressure 143/84 H 138/78 143/86 H Pulse Oximetry 94 97 98 Oxygen Delivery Method Room Air Room Air Room Air 12/08/23 14:00 Temperature 98.7 F Pulse Rate 80 Respiratory Rate 18 Blood Pressure 144/85 H Pulse Oximetry 98 Oxygen Delivery Method Room Air BMI result Body Mass Index 37.3 Const General: cooperative, no acute distress, alert and awake Nutritional Appearance: well nourished Orientation/consciousness: patient oriented x3 Limitations: no limitations HENMT Head: Yes normal to inspection and Yes atraumatic Ears: hearing grossly normal bilaterally and external ears normal General nose exam: Normal external nose present, no nasal discharge noted and no epistaxis Face and sinus: Yes normal facial exam, No abrasion and No laceration Mouth: Normal oral and palatal mucosa present, no drooling and no muffled voice Eyes General: appearance normal, both eyes and all related structures Periorbital: periorbital findings normal Eyelids: Yes eyelids normal Conjunctivae: conjunctivae normal Pupils: Equal, round and reactive pupils present EOM: EOMs intact bilaterally Neck Neck: Yes normal visual inspection, Yes full ROM and Yes no lymphadenopathy Chest Chest palpation & inspection: normal inspection of the chest Resp Effort & Inspection: normal respiratory effort and able to speak in complete sentences GI Inspection: Yes normal to inspection Neuro General: patient oriented x3 and moves all extremities Cranial nerves: Yes Equal, round and reactive pupils present Cognition (Neuro): normal cognition Extrem General: Yes normal to inspection, Yes full ROM and Yes capillary refill normal Psych Appearance: grossly normal Mental Status: mental status grossly normal Affect: normal affect Attitude: cooperative Thought process: Normal thought process present Thought content: Normal thought content present Insight: Good insight present (Psych) Medications Administered Discontinued Medications Generic Name Dose Route Start Last Admin Trade Name Freq PRN Reason Stop Dose Admin Sodium Chloride 1,000 mls @ 999 mls/hr 12/08/23 09:45 12/08/23 12:32 Ns IV 12/08/23 10:45 Infused .Q1H1M SULEIMAN Infusion Ceftriaxone Sodium 1 gm/ 50 mls @ 100 mls/hr 12/08/23 15:01 12/08/23 15:57 Sodium Chloride IV 12/08/23 15:30 Infused ONCE ONE Infusion Iohexol 100 ml 12/08/23 09:59 12/08/23 09:59 Iohexol 350 Mg/Ml 100 Ml Infus..Btl IV 12/08/23 10:00 85 ml ONCE ONE Administration Ketorolac Tromethamine 15 mg 12/08/23 09:41 12/08/23 09:48 Ketorolac Tromethamine 15 Mg/Ml Vial IVPUSH 12/08/23 09:42 15 mg ONCE ONE Administration Medical Decision Making Medical Decision Making MDM Narrative: Patient is a 48 year old assigned male at with no reported medical history presenting to the emergency department today with right sided flank pain. Patient's physical exam was unremarkable. Patient's blood work showed an elevated WBC count of 15.4 but were otherwise unremarkable. Patient's urine showed a possible UTI. Patient's CT of the abdomen pelvis showed a large fluid collection on the right kidney which the radiologist states could be an abscess vs. hematoma as well as fat stranding around the area. I consulted with the urologist animation producer who recommended giving the patient IV antibiotics, ordering blood cultures, and admitting him to the medical service. I spoke to the hospitalist team who agreed to admission. Patient's clinical presentation is not consistent with sepsis (@1512). I explained my physical exam findings as well as all test results to the patient. I answered all questions asked by the patient. Patient verbalized agreement and understanding with this treatment plan and admission. Differential Diagnosis Differential Diagnoses: The differential diagnosis associated with the presentation includes Flank pain Kidney stone Kidney abscess Kidney hematoma UTI Admission/Observation Consideration of admission/observation: Escalation of care including admission/observation considered Patient admitted. Consult Healthcare Provider Management of the patient was discussed with: Hospitalist (agreed to admission as noted in the MDM Rationale portion of this note.) and Dinkey Locomotive Engineer (spoke to the urologist as noted in the MDM Rationale portion of this note.) Lab Data [facility] Lab Attestation statement: I reviewed the patient's lab results. My interpretation of these results are in the MDM Rationale portion of this note. 12/08/23 08:13 12/08/23 08:13 Labs: Lab Results 12/08/23 12/08/23 12/08/23 Range/Units 08:13 09:46 15:24 WBC 15.4 H (4.8-10.8) X10*3/uL RBC 4.65 (4.60-5.80) X10*6/uL Hgb 13.6 L (14.0-18.0) g/dl Hct 39.7 L (42.0-52.0) % MCV 85.4 (80.0-98.0) fL MCH 29.2 (27.0-33.0) pg MCHC 34.3 (31.0-36.0) g/dl RDW 13.0 (11.0-16.0) % Plt Count 287 (160-400) X10*3/uL MPV 9.6 (9.4-12.4) fL Immature Gran % (Auto) 0.6 H (0.0-0.4) % Neut % (Auto) 78.4 H (45-73) % Lymph % (Auto) 10.2 L (20-40) % Bibb % (Auto) 9.9 (2-11) % Eos % (Auto) 0.5 (0-4) % Baso % (Auto) 0.4 (0-2) % Lymph # (Auto) 1.6 (1.2-4.9) X10*3/uL Bibb # (Auto) 1.5 H (0.1-1.2) X10*3/uL Eos # (Auto) 0.1 (0.0-0.4) X10*3/uL Baso # (Auto) 0.1 (0.0-0.2) X10*3/uL Abs Immat Gran (auto) 0.09 H (0.00-0.03) X10*3/uL Absolute Neuts (auto) 12.1 H (2.0-8.3) x10*3/uL Absolute Nucleated RBC 0.000 (0.0-0.012) X10*3/uL Nucleated RBC % (auto) 0.0 (0.0-0.2) /100WBC Smear Tech's Comments VERIFIED PT 15.7 H (11.1-13.3) SEC INR 1.3 H (0.9-1.1) APTT 34.1 (26.0-36.8) SEC Sodium 136 (135-145) mmol/L Potassium 4.3 (3.3-5.1) mmol/L Chloride 101 (96-108) mmol/L Carbon Dioxide 26 (22-29) mmol/L Anion Gap 13 (12-20) BUN 19 H (9-16) mg/dL Creatinine 1.21 (0.5-1.4) mg/dL Estim Creat Clear Calc 104.7 Estimated GFR > 60 Random Glucose 119 H (60-115) mg/dL Lactic Acid 1.8 (0.5-2.0) mmol/L Calcium 10.0 D (8.4-10.2) mg/dL Total Bilirubin 0.7 (0.0-1.0) mg/dL Direct Bilirubin 0.3 (0.0-0.5) mg/dL AST 28 (5-37) U/L ALT 15 (0-40) U/L Alkaline Phosphatase 71 (39-117) U/L Total Protein 8.5 H (6.5-8.0) g/dL Albumin 3.6 (3.5-5.0) g/dL Lipase 24 (8-78) U/L Urine Color Dark Yellow Urine Appearance Cloudy Urine pH 5.5 (5.0-9.0) Ur Specific [place] >= 1.030 H (1.005-1.025) Urine Protein 30 (1+) H (Neg-Trace) mg/dL Urine Glucose (UA) Negative (Negative) mg/dL Urine Ketones Trace (Negative) mg/dL Urine Blood Moderate (2+) H (Negative) Urine Nitrite Negative (Negative) Ur Leukocyte Esterase Trace H (Negative) Urine RBC 0-2 (0-2) /HPF Urine WBC 6-10 H (0-5) /HPF Ur Squamous Epith Cells 11-20 (0-2) /HPF Urine Bacteria Trace (None Seen) Hyaline Casts 3-5 (0-2) /LPF Independent Interpretation I performed an independent interpretation of an: CT Scan Interpretation: My interpretation is in agreement with the radiologist's impression of this imaging study. EXAMINATION: CT ABDOMEN AND PELVIS WITH CONTRAST CLINICAL INFORMATION: Abdominal pain COMPARISON: August 24, 2022 TECHNIQUE: Multidetector volumetric images were obtained from the superior aspect of the liver through the pubic symphysis following administration 85 mL of Omnipaque 350 intravenous contrast. Sagittal and coronal reformatted images were obtained on the technologist's workstation. Oral contrast: No This CT examination was performed using dose optimization techniques as appropriate, variously including the following: *Automated exposure control *Adjustment of mA and/or kV according to patient size (this includes techniques or standardized protocols for targeted exams where dose is matched to indication/reason for exam; i.e. extremities or head) *Use of iterative reconstruction technique DLP: 1020 mGy-cm FINDINGS: LUNG BASES: There is dense acoustic atelectasis at the right lung base LIVER, GALLBLADDER, AND BILIARY TREE: Liver is somewhat attenuation due to hepatic steatosis and enlarged. There are no intrahepatic masses or ductal dilatation. The gallbladder is unremarkable with no evidence of radiopaque gallstones, gallbladder wall thickening, or obvious pericholecystic inflammatory changes. PANCREAS: Unremarkable. SPLEEN: Spleen is mildly enlarged, measuring 14.2 cm ADRENAL GLANDS: Unremarkable. KIDNEYS AND URETERS: There is perinephric stranding on the right with questionable subcapsular fluid collection possibly due to hematoma versus abscess. The collection measured 8.2 x 6.3 x 3.8 cm. There is no hydronephrosis or nephrolithiasis. There is cyst visualized medially in the lower pole, measured 2.2 x 1.6 cm. Left kidney revealed small cyst in the lower pole. BLADDER: Unremarkable. GASTROINTESTINAL TRACT: The small and large bowel are unremarkable. The appendix is unremarkable. ABDOMINAL WALL: No significant hernia is appreciated. LYMPH NODES: Normal. VASCULAR: Unremarkable. PELVIC VISCERA: Unremarkable. OSSEOUS STRUCTURES: Unremarkable. CT/CT abdomen pelvis w IV con IMPRESSION: 1. Right perinephric stranding with questionable subcapsular fluid collection possibly due to hematoma versus abscess. 2. Right basilar atelectasis. 3. Hepatosplenomegaly. 4. Bilateral renal cysts. Fleischner guidelines were followed. Electronically signed by: Lizzeth Santana MD 12/08/2023 02:37 PM EDT Dictated By: Lizzeth Santana MD Signed By: Electronically signed by Lizzeth Santana MD 12/08/23 1437 Radiology Impression Discussion of test interpretation with radiology: I have reviewed the radiologist's reading. Critical Care Time Critical Care Time Critical Care Time: Yes Total Critical Care Time: 58 Attestation: I spent 58 minutes of Critical Care Time with this patient. This does not include time spent on separately reported billable procedures. Discharge Plan Discharge Clinical Impression: Acute flank pain, Acute UTI, Kidney abscess, Hematoma of kidney Patient Disposition: Admitted As Inpatient Print Language: [place]
[2023-12-08] MEDS: 0.9 % Sodium Chloride 1,000 ML 999 ML IV (09:48)
[2023-12-08] MEDS: Ketorolac Tromethamine 15 MG/ML VIAL IVPUSH (09:48)
--- NOTE | 2023-12-08 09:50 | PC.NURSE ---
IVF/medication administered per provider order. effectiveness pending. pt waiting to go to CT at this time.
[2023-12-08 09:52] LABS: Appearance Urine Cloudy; Color Urine Dark Yellow; Glucose Urine UA Negative (Negative); Leukocyte Esterase Urine Trace (Negative); Nitrite Urine Negative (Negative); PH 5.5 (5.0-9.0); Specific Gravity - Urine >= 1.030 (1.005-1.025); UMIC TRIGGER UACC YES; Urine Blood Moderate (2+) (Negative); Urine Ketones Trace mg/dL (Negative); Urine Protein 30 (1+) mg/dL (Neg-Trace)
[2023-12-08] MEDS: iohexoL 350 MG/ML 100 ML INFUS..BTL IV (09:59)
[2023-12-08 10:02] LABS: Bacteria Urine Trace (None Seen); RBC Urine 0-2 /HPF (0-2); UACC Culture Trigger YES
[2023-12-08 10:44] LABS: SLIDE REVIEW VERIFIED
[2023-12-08] MEDS: cefTRIAXone sodium 1 GM in 0.9 % Sodium Chloride 50 ML IV (15:27)
--- NOTE | 2023-12-08 15:37 | PHA.MEDREC ---
Addendum entered by [facility] 12/08/23 16:21: [facility] REC REVIEWED Original Note: Pharmacy Consult ? Medication Reconciliation Pharmacy has completed the medication reconciliation. Confirmed medications with patient. Patient confirmed he is taking his Sulfamethoxazole/Trimethoprim 800-160mg tab 1 bid for 10 days, he started that on Saturday 12/02 and he states he last took it yesterday and did not take it today due to how he was feeling. He did state he took his Omeprazole 20mg tab this morning.
[2023-12-08 15:40] LABS: Lactic Acid 1.8 mmol/L (0.5-2.0)
[2023-12-08 15:47] LABS: INTERNATIONAL NORM RATIO 1.3 (0.9-1.1); Prothrombin Time 15.7 SEC (11.1-13.3)
[2023-12-08 15:50] LABS: Partial Thromboplastin Time 34.1 SEC (26.0-36.8)
--- NOTE | 2023-12-08 16:09 | PM.IMHP ---
History of Present Illness Date of Service: 12/08/23 Attending physician on admission: Scarlet Taylor Chief Complaint: Right flank pain Pt is a 48-year-old male with a PMH significant for?mild intermittent asthma, GERD, and recurrent UTIs who has not seen a PCP in over 30 years who presents to the ED with?worsening right flank pain x1 week. Pt states has been having recurrent UTIs 1 or 2 times every year since he was 14 years old. Reports having UTI like symptoms 1 week ago which worsened on when he awoke up feeling like his torso ?had taken a thrashing?. Patient had right-sided flank pain and polyuria. [place] terrible and slept almost 19 hours that day. On Wednesday went to a walk-in clinic and was diagnosed with possible nephrolithiasis versus pyelonephritis. Was sent home Bactrim until to present to the emergency room if symptoms persisted or worsened. Patient states initially he felt much better, and was able to feel ?functional again? by Wednesday. Yesterday, however, symptoms worsened and he experienced subjective fever, chills, and right-sided flank pain now radiated to lower central abdomen. Fell nausea secondary to pain, but no vomiting. Has had reduced p.o. intake during this time. Pain worse with movement. Patient denies any recent trauma to his abdomen or back. No recent falls. Denies chest pain/pressure, palpitations. No shortness a breath or difficulty breathing. In the ED pt was hypertensive 04/22/1984, otherwise vitals WNL Labs were significant for leukocytosis of 15.4 H&H 13.6/39.7, and creatinine 1.21, otherwise grossly unremarkable and around baseline for patient. No significant electrolyte abnormalities. Lactic acid WNL at 1.8. Hepatic function WNL. UA likely positive with trace leukocyte esterase, 6-10 wbc's, moderate blood, 11-20 epithelial cells, and 3-[address]?of abdomen and pelvis found right perinephric stranding with questionable Ceftin cap sealer fluid collection possibly due to hematoma versus abscess measuring 8.2 x 6.3 x 3.8 cm. No hydronephrosis or nephrolithiasis. Also showed hepatosplenomegaly and bilateral renal cysts. Pt was treated with IVF, ketorolac, and ceftriaxone. Pt will be admitted to the hospital for treatment and further evaluation of complicated UTI. Review of Systems Review of Systems: Right-sided flank pain radiating to lower central abdomen Polyuria Subjective fever and chills Nausea, no vomiting Denies chest pain/pressure, palpitations [facility] Medical History (Updated 12/08/23 @ 18:08 by SARA Hall) GERD (gastroesophageal reflux disease) Tooth ache History of asthma Surgical History [place] teeth extracted History of esophagogastroduodenoscopy (EGD) Social History Household Members: None Housing: House Do you presently have visiting nurse or other home services: No Alcohol intake: current Alcohol intake frequency: holidays/special occasions only Alcohol type: hard liquor Patient Tobacco Use Status: Never used Tobacco Smoked in Last 30 Days: No Use of substances other than those prescribed or required for medical reasons: No Currently Displaying Signs/Symptoms of Drug Intoxication Withdrawal: No Have you been hit, kicked, punched, or otherwise hurt by someone within the past year? If so, by whom?: No Do you feel safe in your current relationship?: Yes Is there a partner from a previous relationship who is making you feel unsafe now?: No Are you made to feel afraid or neglected: No Advance Directives: No Advance Directives Information Provided: No Do you have a plan to hurt others: No Plan Recently lost weight without trying: No Eating poorly because of decreased appetite: No Nutrition Risks: No Nutritional Risk Poor oral hygiene: No service: No Meds Allergies Allergy/AdvReac Type Severity Reaction Status Date / Time No Known Allergies Allergy Verified 12/08/23 08:09 Home Medications ?Medication ?Instructions ?Recorded ?Confirmed ?Last Taken ?Type omeprazole 20 mg tablet,delayed 20 mg PO DAILY 12/08/23 12/08/23 12/08/23 History release sulfamethoxazole 800 1 tab PO BID 12/08/23 12/08/23 12/07/23 History mg-trimethoprim 160 mg tablet Physical Exam Vital Signs and Narrative: Vital Signs: Last Vital Signs Temp 98.7 F 12/08/23 14:00 Pulse 80 12/08/23 14:00 Resp 18 12/08/23 14:00 BP 144/85 H 12/08/23 14:00 Pulse Ox 98 12/08/23 14:00 O2 Del Method Room Air 12/08/23 14:00 BMI result Body Mass Index 37.3 Constitutional: Alert, in no acute distress. Mental Status: Oriented to person, place and time. Eyes: Pupils are equal, round, and reactive to light. Ear, Nose, and Throat: Oropharynx clear, mucous membranes moist. Ears and nose without deformities. Trachea midline. Respiratory: Clear to auscultation bilaterally. No wheezing, rales, or rhonchi. Cardiovascular: S1, S2 regular. No murmurs, rubs, or gallops. Gastrointestinal: Abdomen soft, non-tender, non-distended. Normal bowel sounds. Neurologic: Cranial nerves II-XII are grossly intact bilaterally. No focal neurological deficits. Moves all extremities spontaneously. Back: No CVA tenderness. Extremities: No edema. Psychiatric: Normal mood and affect. Results Labs 12/09/23 07:07 12/09/23 07:07 Labs: Laboratory Results - last 24 hr 12/08/23 12/08/23 12/08/23 08:13 09:46 15:24 MCV 85.4 MCH 29.2 MCHC 34.3 RDW 13.0 Plt Count 287 MPV 9.6 Immature Gran % (Auto) 0.6 H Neut % (Auto) 78.4 H Lymph % (Auto) 10.2 L Robertson % (Auto) 9.9 Eos % (Auto) 0.5 Baso % (Auto) 0.4 Lymph # (Auto) 1.6 Robertson # (Auto) 1.5 H Eos # (Auto) 0.1 Baso # (Auto) 0.1 Abs Immat Gran (auto) 0.09 H Absolute Neuts (auto) 12.1 H Absolute Nucleated RBC 0.000 Nucleated RBC % (auto) 0.0 Smear Tech's Comments VERIFIED PT 15.7 H INR 1.3 H APTT 34.1 Anion Gap 13 Estim Creat Clear Calc 104.7 Estimated GFR > 60 Random Glucose 119 H Lactic Acid 1.8 Calcium 10.0 D Total Bilirubin 0.7 Direct Bilirubin 0.3 AST 28 ALT 15 Alkaline Phosphatase 71 Total Protein 8.5 H Albumin 3.6 Lipase 24 Urine Color Dark Yellow Urine Appearance Cloudy Urine pH 5.5 Ur Specific [place] >= 1.030 H Urine Protein 30 (1+) H Urine Glucose (UA) Negative Urine Ketones Trace Urine Blood Moderate (2+) H Urine Nitrite Negative Ur Leukocyte Esterase Trace H Urine RBC 0-2 Urine WBC 6-10 H Ur Squamous Epith Cells 11-20 Urine Bacteria Trace Hyaline Casts 3-5 Imaging Radiologist's Impressions: Impressions Abdomen/Pelvis CT 12/08/23 09:47 IMPRESSION: 1. Right perinephric stranding with questionable subcapsular fluid collection possibly due to hematoma versus abscess. 2. Right basilar atelectasis. 3. Hepatosplenomegaly. 4. Bilateral renal cysts. Fleischner guidelines were followed. Electronically signed by: Lizzeth Santana MD 12/08/2023 02:37 PM EDT RP Assessment and Plan (1) Acute UTI: Status: Acute (2) Acute flank pain: Status: Acute Plan Pt is a 48-year-old male with a PMH significant for?mild intermittent asthma, GERD, and recurrent UTIs who has not seen a PCP in over 30 years who presents to the ED with?worsening right flank pain x1 week. Pt will be admitted to the hospital for treatment and further evaluation of complicated UTI. UTI with right flank pain Pt with long hx of 1-2 UTIs yearly since [address] of abd showing right perinephric stranding and ?of hematoma versus abscess Does not meet sepsis criteria: Leukocytosis, but no tachycardia, tachypnea, or fever; lactic acid WNL Patient received IVF and started on broad-spectrum antibiotics in the ED Will treat with ceftriaxone, started 05/08/2023 Analgesics for pain management IR consult for possible drainage of abscess Urology consult Follow urine and blood cultures MAHENDRA Creatinine 1.21 at time of presentation, up from 0.88 on 08/24/2022 Likely secondary to dehydration from reduced p.o. intake Pt recevied 1L IVF in the ED Will place on maintenance fluids x1L Follow BMP GERD Continue PPI Full Code Attending:?Dr. Taylor DVT Prophylaxis: Pneumatic compression due to likely imminent IR intervention Pt will require a hospitalization of at least two nights for treatment of?UTI with right flank pain with perinephric stranding and question of hematoma versus abscess. Patient will require administration of IV antibiotics and specialist consultation with Urology and IR for possible drainage. Quality Stroke Does the patient have a stroke diagnosis?: No VTE Prior VTE?: No VTE Risk Level:: Medical - moderate - high VTE Device Contraindication: N/A - Device Ordered VTE Drug Contraindication: Treatment Not Indicated
[2023-12-08] MEDS: 0.9 % Sodium Chloride 1,000 ML 100 ML IVCONT (18:36)
--- NOTE | 2023-12-08 19:10 | PC.NURSE ---
assumed care of pt at 1900 - report received from kamilla BAHENA.
[2023-12-08] MEDS: Benzonatate 100 MG CAPSULE PO (21:45)
[2023-12-08] MEDS: Acetaminophen 325 MG TABLET 650 MG PO (21:51)
[2023-12-09 03:11] VITALS: BP 129/79; PULSE 84; RESP 18; TEMP 36.1; O2SAT 98
[2023-12-09] MEDS: Omeprazole 20 MG CAPSULE.DR PO (06:26)
[2023-12-09] MEDS: 0.9 % Sodium Chloride Flush 3 ML SYRINGE IVFLUSH ×3 (07:11→19:21)
[2023-12-09 07:30] VITALS: BP 132/78; PULSE 93; RESP 17; TEMP 37.7; O2SAT 96
[2023-12-09 07:40] LABS: Hematocrit 39.4 % (42.0-52.0); Hemoglobin 13.3 g/dl (14.0-18.0); Mean Corpuscular HGB Conc 33.8 g/dl (31.0-36.0); Mean Corpuscular Hemoglobin 29.2 pg (27.0-33.0); Mean Corpuscular Volume 86.4 fL (80.0-98.0); Mean Platelet Volume 9.6 fL (9.4-12.4); Platelet Count 315 X10*3/uL (160-400); Red Blood Count 4.56 X10*6/uL (4.60-5.80); Red Cell Distribution Width 13.1 % (11.0-16.0); White Blood Count 16.9 X10*3/uL (4.8-10.8)
[2023-12-09 07:47] LABS: Anion Gap 13 (12-20); Blood Urea Nitrogen 17 mg/dL (9-16); Calcium 9.5 mg/dL (8.4-10.2); Carbon Dioxide 25 mmol/L (22-29); Chloride 102 mmol/L (96-108); Creatinine Clr Calc Pharmacy 130.3; Estimated Glomerular Filt Rate > 60; Glucose Random 105 mg/dL (60-115); Potassium 4.1 mmol/L (3.3-5.1); Sodium 136 mmol/L (135-145)
[2023-12-09] MEDS: Piperacillin Sodium/Tazobactam 3.375 GM in 0.9 % Sodium Chloride 50 ML IV ×3 (08:27→19:24)
--- NOTE | 2023-12-09 09:39 | MHC.CM.PN ---
Patient lives in a home alone. Functionally independent. No PCP. CM provided [facility] brochure and discussed importance of establishing care. Patient will call to schedule. No HCP. CM provided education and offered assistance. Patient declined. DP: Goal is home self care. Patient prefers to drive home, car is in [facility] lot. CM will continue to follow.
--- NOTE | 2023-12-09 14:27 | HO.PM.IMPN ---
Subjective Subjective Date of Service: 12/09/23 Interval History: Complaining of persistent right flank pain, worse with movement, feels feverish at night daily, had them at the beginning of symptoms > 1 week ago, took 5-6 days of Bactrim, denies nausea,no vomiting, no diarrhea tolerating diet denies urinary urgency, no frequency. Review of Systems All other system reviewed and negative. Physical Exam Vital Signs: Vital Signs: Last Vital Signs Temp 99.8 F 12/09/23 07:30 Pulse 93 12/09/23 07:30 Resp 17 12/09/23 07:30 BP 132/78 12/09/23 07:30 Pulse Ox 96 12/09/23 07:30 O2 Del Method Room Air 12/09/23 07:30 BMI result Body Mass Index 37.8 Const: Other: General sitting comfortably in no acute distress, face flushed. Neck no JVD. CVS regular rate rhythm, Respiratory lungs clear to auscultation, no respiratory distress, no wheeze, no rhonchi. Gastrointestinal abdomen soft, non tender, bowel sounds audible, no guarding , no rigidity. Extremities no edema. No CVA tenderness Neuro non focal Skin no rash Appropriate affect Objective Data Active Medications Acetaminophen (Acetaminophen 325 Mg Tablet) 650 mg PO Q6H PRN PRN Reason: Pain, Mild (Pain Scale 1-3), fever or headache Last Admin: 12/08/23 21:51 Dose: 650 mg Documented By: DANE Comments: per pt request to take medication for 5/10 pain Albuterol Sulfate (Albuterol Sulfate 90 Mcg 8 Gm Inhaler) 2 puff INHALE RQ4H PRN PRN Reason: sob Benzonatate (Benzonatate 100 Mg Capsule) 100 mg PO TID PRN PRN Reason: Cough Last Admin: 12/08/23 21:45 Dose: 100 mg Documented By: DANE Calcium Carbonate (Calcium Carbonate 750 Mg Tab.Chew) 750 mg PO Q4H PRN PRN Reason: Heartburn Fluticasone/Vilanterol (Fluticasone/Vilanterol 100/25 Blst.W.Dev) 1 puff INHALE RDAILY SULEIMAN Piperacillin Sod/Tazobactam (Sod 3.375 gm/ Sodium Chloride) 50 mls @ 100 mls/hr IV Q6H SULEIMAN Last Admin: 12/09/23 14:07 Dose: 100 mls/hr Documented By: IDALIA Magnesium Hydroxide (Milk Of Magnesia 30 Ml Oral.Susp) 30 ml PO DAILY PRN PRN Reason: Constipation Melatonin (Melatonin 3 Mg Tablet) 6 mg PO BEDTIME PRN PRN Reason: Insomnia Morphine Sulfate (Morphine Sulfate 4 Mg/Ml Cartridge) 4 mg IVPUSH Q4H PRN; Protocol PRN Reason: Pain, Severe (Pain Scale 7-10) Omeprazole (Omeprazole 20 Mg Capsule.Dr) 20 mg PO DAILY@0630 [facility] Last Admin: 12/09/23 06:26 Dose: 20 mg Documented By: DANE Ondansetron HCl (Ondansetron Hcl 4 Mg/2 Ml Vial) 4 mg IVPUSH Q8H PRN PRN Reason: Nausea and Vomiting Sodium Chloride (0.9 % Sodium Chloride Flush 3 Ml Syringe) 3 ml IVFLUSH QSHIFT [facility] Last Admin: 12/09/23 07:11 Dose: 3 ml Documented By: IDALIA Labs 12/09/23 07:07 12/09/23 07:07 Labs: Laboratory Results - last 24 hr 12/08/23 12/09/23 15:24 07:07 MCV 86.4 MCH 29.2 MCHC 33.8 RDW 13.1 Plt Count 315 MPV 9.6 Absolute Nucleated RBC 0.000 Nucleated RBC % (auto) 0.0 PT 15.7 H INR 1.3 H APTT 34.1 Anion Gap 13 Estim Creat Clear Calc 130.3 Estimated GFR > 60 Random Glucose 105 Lactic Acid 1.8 Calcium 9.5 Microbiology Microbiology Results: Microbiology 12/08/23 Unknown Urine Culture - Final Urine clean catch - Clean Catch Midstream Assessment and Plan (1) Acute UTI: Status: Acute (2) Acute flank pain: Status: Acute (3) Hematoma of kidney: Status: Acute (4) Kidney abscess: Status: Acute Plan 48-year-old male with a PMH significant for?mild intermittent asthma, GERD, and recurrent UTIs who has not seen a PCP in over 30 years who presents to the ED with?worsening right flank pain x1 week. Pt will be admitted to the hospital for treatment and further evaluation of complicated UTI. UTI with right flank pain Fevers at night, persistent right flank pain long hx of 1-2 UTIs yearly since [address] of abd showing right perinephric stranding and subcapsular fluid collection ?of hematoma versus abscess WBC trending up urine culture <10,000 likely due to recent treatment with Bactrim On IV ceftriaxone, will transition to IV Zosyn Analgesics for pain management Case discussed with Urology Dr. Brar recommend to continue antibiotics follow cultures , and possible drainage by IR tomorrow being on labs blood cultures pending MAHENDRA Likely prerenal, Creatinine 1.21 at time of presentation, up from 0.88 on 08/24/2022, improved to 0.98 with IV fluids GERD Continue PPI Full Code DVT Prophylaxis: Pneumatic compression Pt will require continued inpatient hospitalization for treatment of?UTI with right flank pain with perinephric stranding and question of hematoma versus abscess. Patient will require administration of IV antibiotics and specialist consultation with Urology and IR for possible drainage. Quality Stroke Does the patient have a stroke diagnosis?: No VTE Prior VTE?: No VTE Risk Level:: Medical - moderate - high VTE Device Contraindication: N/A - Device Ordered VTE Drug Contraindication: Treatment Not Indicated
[2023-12-09 15:34] VITALS: BP 139/83; PULSE 99; RESP 18; TEMP 37.2; O2SAT 97
[2023-12-09] MEDS: Albuterol Sulfate 90 MCG 8 GM INHALER 2 PUFF INHALE ×2 (16:56→21:07)
[2023-12-09 20:00] VITALS: BP 124/70; PULSE 98; RESP 20; TEMP 36.7; O2SAT 96
[2023-12-09] MEDS: Acetaminophen 325 MG TABLET 650 MG PO (21:07)
[2023-12-09] MEDS: Benzonatate 100 MG CAPSULE PO (21:07)
[2023-12-10] MEDS: Piperacillin Sodium/Tazobactam 3.375 GM in 0.9 % Sodium Chloride 50 ML IV ×4 (02:59→20:11)
[2023-12-10 04:00] VITALS: BP 106/55; PULSE 76; RESP 18; TEMP 36.3; O2SAT 96
[2023-12-10] MEDS: Omeprazole 20 MG CAPSULE.DR PO (06:22)
[2023-12-10 07:04] LABS: Anion Gap 14 (12-20); Blood Urea Nitrogen 12 mg/dL (9-16); Calcium 9.1 mg/dL (8.4-10.2); Carbon Dioxide 22 mmol/L (22-29); Chloride 106 mmol/L (96-108); Creatinine Clr Calc Pharmacy 145.1; Estimated Glomerular Filt Rate > 60; Glucose Random 108 mg/dL (60-115); Potassium 3.7 mmol/L (3.3-5.1); Sodium 138 mmol/L (135-145)
[2023-12-10 07:21] VITALS: BP 130/74; PULSE 86; RESP 16; TEMP 36.5; O2SAT 94
[2023-12-10] MEDS: Fluticasone/Vilanterol 100/25 BLST.W.DEV 1 PUFF INHALE (08:22)
[2023-12-10 08:24] VITALS: PULSE 86; RESP 17; O2SAT 95
[2023-12-10] MEDS: 0.9 % Sodium Chloride Flush 3 ML SYRINGE IVFLUSH ×3 (08:24→20:16)
[2023-12-10 08:39] LABS: Hematocrit 36.9 % (42.0-52.0); Hemoglobin 12.5 g/dl (14.0-18.0); Mean Corpuscular HGB Conc 33.9 g/dl (31.0-36.0); Mean Corpuscular Hemoglobin 28.7 pg (27.0-33.0); Mean Corpuscular Volume 84.8 fL (80.0-98.0); Mean Platelet Volume 9.4 fL (9.4-12.4); Platelet Count 300 X10*3/uL (160-400); Red Blood Count 4.35 X10*6/uL (4.60-5.80); Red Cell Distribution Width 12.9 % (11.0-16.0); White Blood Count 12.2 X10*3/uL (4.8-10.8)
--- NOTE | 2023-12-10 12:31 | HO.PM.IMPN ---
Subjective Subjective Date of Service: 12/10/23 Interval History: Feeling 40% better in regard to pain, but still has right flank discomfort/pressure with movement, denies fever, no urinary symptoms, tolerating diet no nausea ,no vomiting ,no abdominal pain, no hematuria no other acute events overnight. Review of Systems All other system reviewed and are negative. Constitutional Constitutional: Reports no additional constitutional complaints, Denies chills, Denies fever(s) and Denies night sweats Eyes Eyes: Reports no additional eye complaints, Denies blurry vision, Denies change in vision, Denies diplopia, Denies eye discharge, Denies loss of vision and Denies eye pain ENT Ears, Nose, Mouth, and Throat: Denies dizziness Cardiovascular Cardiovascular: Reports no additional cardiovascular complaints, Denies chest pain, Denies lightheadedness, Denies Loss of Consciousness and Denies dyspnea Respiratory Respiratory: Reports no additional respiratory complaints and Denies dyspnea Gastrointestinal Gastrointestinal: Reports no additional gastrointestinal complaints, Denies abdominal pain, Denies melena, Denies hematochezia, Denies change in bowel habits and Denies change in stool character Genitourinary Genitourinary: Reports no additional male genitourinary complaints, Denies hematuria, Denies oliguria, Denies difficulty urinating, Denies dysuria, Denies urinary frequency, Denies urinary hesitancy, Denies urinary incontinence and Denies urinary urgency Musculoskeletal Musculoskeletal: Reports no additional musculoskeletal complaints, Denies numbness and Denies tingling Neurologic Neurologic: Denies dizziness, Denies loss of vision, Denies numbness and Denies tingling Psychiatric Psychiatric: Reports no additional psychiatric complaints Endocrine Endocrine: Reports no additional endocrine complaints Hematologic/Lymphatic Hematologic/Lymphatic: Reports no additional hematologic/lymphatic complaints Allergic/Immunologic Allergic/Immunologic: Reports no additional allergic/immunologic complaints Physical Exam Vital Signs: Vital Signs: Last Vital Signs Temp 97.7 F 12/10/23 07:21 Pulse 86 12/10/23 08:24 Resp 17 12/10/23 08:24 BP 130/74 12/10/23 07:21 Pulse Ox 94 12/10/23 07:21 O2 Del Method Room Air 12/10/23 07:21 BMI result Body Mass Index 37.8 Const: Other: General sitting comfortably in no acute distress, face flushed. Neck no JVD. CVS regular rate rhythm, Respiratory lungs clear to auscultation, no respiratory distress, no wheeze, no rhonchi. Gastrointestinal abdomen soft, non tender, bowel sounds audible, no guarding , no rigidity. Extremities no edema. No CVA tenderness Neuro non focal Skin no rash Appropriate affect Objective Data Active Medications Acetaminophen (Acetaminophen 325 Mg Tablet) 650 mg PO Q6H PRN PRN Reason: Pain, Mild (Pain Scale 1-3), fever or headache Last Admin: 12/09/23 21:07 Dose: 650 mg Documented By: DANE Albuterol Sulfate (Albuterol Sulfate 90 Mcg 8 Gm Inhaler) 2 puff INHALE RQ4H PRN PRN Reason: sob Last Admin: 12/09/23 21:07 Dose: 2 puff Documented By: DANE Benzonatate (Benzonatate 100 Mg Capsule) 100 mg PO TID PRN PRN Reason: Cough Last Admin: 12/09/23 21:07 Dose: 100 mg Documented By: DANE Calcium Carbonate (Calcium Carbonate 750 Mg Tab.Chew) 750 mg PO Q4H PRN PRN Reason: Heartburn Fluticasone/Vilanterol (Fluticasone/Vilanterol 100/25 Blst.W.Dev) 1 puff INHALE RDAILY [facility] Last Admin: 12/10/23 08:22 Dose: 1 puff Documented By: SHAYNA Piperacillin Sod/Tazobactam (Sod 3.375 gm/ Sodium Chloride) 50 mls @ 100 mls/hr IV Q6H [facility] Last Infusion: 12/10/23 09:02 Dose: Infused Documented By: MADDIE Magnesium Hydroxide (Milk Of Magnesia 30 Ml Oral.Susp) 30 ml PO DAILY PRN PRN Reason: Constipation Melatonin (Melatonin 3 Mg Tablet) 6 mg PO BEDTIME PRN PRN Reason: Insomnia Morphine Sulfate (Morphine Sulfate 4 Mg/Ml Cartridge) 4 mg IVPUSH Q4H PRN; Protocol PRN Reason: Pain, Severe (Pain Scale 7-10) Omeprazole (Omeprazole 20 Mg Capsule.Dr) 20 mg PO DAILY@0630 [facility] Last Admin: 12/10/23 06:22 Dose: 20 mg Documented By: DANE Ondansetron HCl (Ondansetron Hcl 4 Mg/2 Ml Vial) 4 mg IVPUSH Q8H PRN PRN Reason: Nausea and Vomiting Sodium Chloride (0.9 % Sodium Chloride Flush 3 Ml Syringe) 3 ml IVFLUSH QSHIFT [facility] Last Admin: 12/10/23 08:24 Dose: 3 ml Documented By: MADDIE Labs 12/10/23 08:31 12/10/23 06:36 Labs: Laboratory Results - last 24 hr 12/10/23 12/10/23 06:36 08:31 MCV 84.8 MCH 28.7 MCHC 33.9 RDW 12.9 Plt Count 300 MPV 9.4 Absolute Nucleated RBC 0.000 Nucleated RBC % (auto) 0.0 Anion Gap 14 Estim Creat Clear Calc 145.1 Estimated GFR > 60 Random Glucose 108 Calcium 9.1 Microbiology Microbiology Results: Microbiology 12/08/23 15:23 Blood Culture - Preliminary Blood - Venous No growth after 24 hours. 12/08/23 15:24 Blood Culture - Preliminary Blood - Venous No growth after 24 hours. 12/08/23 Unknown Urine Culture - Final Urine clean catch - Clean Catch Midstream Assessment and Plan (1) Hematoma of kidney: Status: Acute (2) Acute UTI: Status: Acute (3) Acute flank pain: Status: Acute (4) Kidney abscess: Status: Acute Plan 48-year-old male with a PMH significant for?mild intermittent asthma, GERD, and recurrent UTIs who has not seen a PCP in over 30 years who presents to the ED with?worsening right flank pain x1 week. Pt will be admitted to the hospital for treatment and further evaluation of complicated UTI. UTI with right flank pain Right flank pain improving, no fevers CT of abd showing right perinephric stranding and subcapsular fluid collection ?of hematoma versus abscess WBC trending down, urine culture <10,000 likely due to recent treatment with Bactrim, blood cultures x2 negative times 24 hours On IV Zosyn d2 s/p iv ceft x1 day Analgesics for pain Case discussed with Urology Dr. Brar recommend to continue antibiotics and follow MAHENDRA Likely prerenal, resolved with IV fluid GERD Continue PPI Mild intermittent asthma continue albuterol mdi Full Code DVT Prophylaxis: Pneumatic compression Pt will require continued inpatient hospitalization for treatment of?UTI with right flank pain with perinephric stranding and question of hematoma versus abscess. Patient will require administration of IV antibiotics and specialist consultation with Urology Quality Stroke Does the patient have a stroke diagnosis?: No VTE Prior VTE?: No VTE Risk Level:: Medical - moderate - high VTE Device Contraindication: N/A - Device Ordered VTE Drug Contraindication: Treatment Not Indicated
[2023-12-10 15:44] VITALS: BP 129/70; PULSE 85; RESP 18; TEMP 37.1; O2SAT 96
--- NOTE | 2023-12-10 16:49 | P.CNUR_ITS ---
History of Present Illness Consult details Consult date: 12/10/23 Narrative: CC: Right subcapsular hematoma 48-year-old male Background recurrent UTI Last interaction with Medical system 30 years a Presents with UTI like symptoms of low last week. Was last when he felt he had pain around his right side. [place] terrible and slept for 20 hours. Went to walk-in clinic and diagnosed with nephrolithiasis versus pyelonephritis. Given Bactrim. Pain initially better but by Wednesday symptoms had returned with fever, chills and right-sided flank pain that was radiating to central abdomen Laboratory work shows elevated white count and creatinine Imaging - There is perinephric stranding on the right with questionable subcapsular fluid collection possibly due to hematoma versus abscess. The collection measured 8.2 x 6.3 x 3.8 cm. There is no hydronephrosis or nephrolithiasis Recommend continued antibiotics and review in 48 hours Would hold off drainage if symptoms improve Will need 2 weeks of antibiotics Review of Systems 2 Constitutional: Constitutional: Reports as per HPI and Reports no additional constitutional complaints Cardiovascular: Cardiovascular: Reports as per HPI and Reports no additional cardiovascular complaints Respiratory: Respiratory: Reports as per HPI and Reports no additional respiratory complaints Gastrointestinal: Gastrointestinal: Reports as per HPI and Reports no additional gastrointestinal complaints Genitourinary: Genitourinary: Reports as per HPI Musculoskeletal: Musculoskeletal: Reports no additional musculoskeletal complaints and Reports as per HPI Neurologic: Reports system reviewed and no additional complaints, except as documented and Reports as per HPI [facility] Past Medical History Medical History (Updated 12/08/23 @ 18:08 by SARA Hall) GERD (gastroesophageal reflux disease) Tooth ache History of asthma Surgical History Surgical History [place] teeth extracted History of esophagogastroduodenoscopy (EGD) Social History Social History Household Members: None Housing: House Do you presently have visiting nurse or other home services: No Alcohol intake: current Alcohol intake frequency: holidays/special occasions only Alcohol type: hard liquor Patient Tobacco Use Status: Never used Tobacco Smoked in Last 30 Days: No Use of substances other than those prescribed or required for medical reasons: No Currently Displaying Signs/Symptoms of Drug Intoxication Withdrawal: No Have you been hit, kicked, punched, or otherwise hurt by someone within the past year? If so, by whom?: No Do you feel safe in your current relationship?: Yes Is there a partner from a previous relationship who is making you feel unsafe now?: No Are you made to feel afraid or neglected: No Advance Directives: No Advance Directives Information Provided: No Do you have a plan to hurt others: No Plan Recently lost weight without trying: No Eating poorly because of decreased appetite: No Nutrition Risks: No Nutritional Risk Poor oral hygiene: No service: No Meds Allergies Allergy/AdvReac Type Severity Reaction Status Date / Time No Known Allergies Allergy Verified 12/08/23 08:09 Active Medications: Current Medications Acetaminophen (Acetaminophen 325 Mg Tablet) 650 mg PO Q6H PRN PRN Reason: Pain, Mild (Pain Scale 1-3), fever or headache Last Admin: 12/09/23 21:07 Dose: 650 mg Albuterol Sulfate (Albuterol Sulfate 90 Mcg 8 Gm Inhaler) 2 puff INHALE RQ4H PRN PRN Reason: sob Last Admin: 12/09/23 21:07 Dose: 2 puff Benzonatate (Benzonatate 100 Mg Capsule) 100 mg PO TID PRN PRN Reason: Cough Last Admin: 12/09/23 21:07 Dose: 100 mg Calcium Carbonate (Calcium Carbonate 750 Mg Tab.Chew) 750 mg PO Q4H PRN PRN Reason: Heartburn Fluticasone/Vilanterol (Fluticasone/Vilanterol 100/25 Blst.W.Dev) 1 puff INHALE RDAILY [facility] Last Admin: 12/10/23 08:22 Dose: 1 puff Piperacillin Sod/Tazobactam (Sod 3.375 gm/ Sodium Chloride) 50 mls @ 100 mls/hr IV Q6H [facility] Last Infusion: 12/10/23 14:37 Dose: Infused Magnesium Hydroxide (Milk Of Magnesia 30 Ml Oral.Susp) 30 ml PO DAILY PRN PRN Reason: Constipation Melatonin (Melatonin 3 Mg Tablet) 6 mg PO BEDTIME PRN PRN Reason: Insomnia Morphine Sulfate (Morphine Sulfate 4 Mg/Ml Cartridge) 4 mg IVPUSH Q4H PRN; Protocol PRN Reason: Pain, Severe (Pain Scale 7-10) Omeprazole (Omeprazole 20 Mg Capsule.Dr) 20 mg PO DAILY@0630 [facility] Last Admin: 12/10/23 06:22 Dose: 20 mg Ondansetron HCl (Ondansetron Hcl 4 Mg/2 Ml Vial) 4 mg IVPUSH Q8H PRN PRN Reason: Nausea and Vomiting Sodium Chloride (0.9 % Sodium Chloride Flush 3 Ml Syringe) 3 ml IVFLUSH QSHIFT [facility] Last Admin: 12/10/23 15:53 Dose: 3 ml Home Medications ?Medication ?Instructions ?Recorded ?Confirmed ?Last Taken ?Type omeprazole 20 mg tablet,delayed 20 mg PO DAILY 12/08/23 12/08/23 12/08/23 History release sulfamethoxazole 800 1 tab PO BID 12/08/23 12/08/23 12/07/23 History mg-trimethoprim 160 mg tablet Physical Exam 2 Vital Signs: Vital Signs: Last Vital Signs Temp 98.7 F 12/10/23 15:44 Pulse 85 12/10/23 15:44 Resp 18 12/10/23 15:44 BP 129/70 12/10/23 15:44 Pulse Ox 96 12/10/23 15:44 O2 Del Method Room Air 12/10/23 15:44 BMI result Body Mass Index 37.8 Const: General: cooperative, healthy appearing, comfortable and no acute distress Orientation/consciousness: patient oriented x3 HEENT: Face and sinus: Yes normal facial exam Mouth: moist mucous membranes Neck: Neck: Yes normal visual inspection, Yes full ROM and Yes trachea midline Chest: Chest palpation & inspection: normal inspection of the chest Resp: Effort & Inspection: normal respiratory effort, able to speak in complete sentences and no respiratory distress GI: Inspection: Yes normal to inspection Back/Spine/Pelvis: Cervical Spine: normal cervical lordosis Thoracic/Lumbar Spine: thoracic and lumbar spine normal to inspection Skin: General skin exam: no rashes or lesions noted Neuro: General: patient oriented x3, tone normal and moves all extremities Extrem: General: Yes normal to inspection and Yes capillary refill normal Results Labs 12/10/23 08:31 12/10/23 06:36 Labs: Abnormal lab results 12/10/23 Range/Units 08:31 WBC 12.2 H (4.8-10.8) X10*3/uL RBC 4.35 L (4.60-5.80) X10*6/uL Hgb 12.5 L (14.0-18.0) g/dl Hct 36.9 L (42.0-52.0) % Short CBC 12/10/23 Range/Units 08:31 WBC 12.2 H (4.8-10.8) X10*3/uL Hgb 12.5 L (14.0-18.0) g/dl Hct 36.9 L (42.0-52.0) % Plt Count 300 (160-400) X10*3/uL BMP 12/10/23 06:36 Sodium 138 Potassium 3.7 Chloride 106 Carbon Dioxide 22 BUN 12 Creatinine 0.88 Calcium 9.1 Urine 12/08/23 Range/Units 09:46 Urine Color Dark Yellow Urine Appearance Cloudy Urine pH 5.5 (5.0-9.0) Ur Specific [place] >= 1.030 H (1.005-1.025) Urine Protein 30 (1+) H (Neg-Trace) mg/dL Urine Glucose (UA) Negative (Negative) mg/dL All other labs normal. Assessment and Plan (1) Kidney abscess: Status: Acute (2) Acute UTI: Status: Acute Plan Continue antibiotics Intervention if fails to improve Procedures Date of Service Date of Service: 12/10/23
[2023-12-10 19:34] VITALS: BP 137/85; PULSE 91; RESP 20; TEMP 36.7; O2SAT 94
[2023-12-10] MEDS: Acetaminophen 325 MG TABLET 650 MG PO (20:21)
[2023-12-10 21:21] VITALS: RESP 18
[2023-12-11] VITALS (9 sets, daily range): BP systolic 124–172; BP diastolic 71–83; PULSE 84–92; RESP 18–20; TEMP 36–36.9; O2SAT 91–94
[2023-12-11] MEDS: Morphine Sulfate 4 MG/ML CARTRIDGE IVPUSH ×2 (01:07→08:56)
[2023-12-11] MEDS: Piperacillin Sodium/Tazobactam 3.375 GM in 0.9 % Sodium Chloride 50 ML IV ×4 (01:56→20:41)
[2023-12-11] MEDS: Omeprazole 20 MG CAPSULE.DR PO (06:01)
[2023-12-11 07:02] LABS: Hematocrit 39.5 % (42.0-52.0); Hemoglobin 13.1 g/dl (14.0-18.0); Mean Corpuscular HGB Conc 33.2 g/dl (31.0-36.0); Mean Corpuscular Hemoglobin 28.6 pg (27.0-33.0); Mean Corpuscular Volume 86.2 fL (80.0-98.0); Mean Platelet Volume 9.6 fL (9.4-12.4); Platelet Count 319 X10*3/uL (160-400); Red Blood Count 4.58 X10*6/uL (4.60-5.80); Red Cell Distribution Width 13.2 % (11.0-16.0); White Blood Count 13.7 X10*3/uL (4.8-10.8)
[2023-12-11 07:45] LABS: Anion Gap 13 (12-20); Blood Urea Nitrogen 12 mg/dL (9-16); Calcium 9.5 mg/dL (8.4-10.2); Chloride 102 mmol/L (96-108); Creatinine Clr Calc Pharmacy 143.4; Estimated Glomerular Filt Rate > 60; Glucose Random 102 mg/dL (60-115); Potassium 3.8 mmol/L (3.3-5.1); Sodium 138 mmol/L (135-145)
[2023-12-11 08:03] LABS: Carbon Dioxide 27 mmol/L (22-29)
[2023-12-11] MEDS: Fluticasone/Vilanterol 100/25 BLST.W.DEV 1 PUFF INHALE (08:35)
[2023-12-11] MEDS: 0.9 % Sodium Chloride Flush 3 ML SYRINGE IVFLUSH ×2 (08:48→20:42)
--- NOTE | 2023-12-11 11:35 | HO.PM.IMPN ---
Subjective Subjective Date of Service: 12/11/23 Interval History: Being followed for right renal subcapsular collection, patient complained of worsening right flank pain,with radiation to right mid.abdomen, denies fever, no chills ,tolerating diet, with no nausea, no vomiting, no diarrhea, urine and blood cultures are negative, no constipation. Review of Systems All other system reviewed and are negative. Physical Exam Vital Signs: Vital Signs: Last Vital Signs Temp 97.7 F 12/11/23 07:07 Pulse 86 12/11/23 08:37 Resp 18 12/11/23 08:37 BP 124/72 12/11/23 07:07 Pulse Ox 92 12/11/23 07:07 O2 Del Method Room Air 12/11/23 07:07 BMI result Body Mass Index 37.8 Const: Other: General sitting comfortably in no acute distress, face flushed. Neck no JVD. CVS regular rate rhythm, Respiratory lungs clear to auscultation, no respiratory distress, no wheeze, no rhonchi. Gastrointestinal abdomen soft, non tender, bowel sounds audible, no guarding , no rigidity. Extremities no edema. No CVA tenderness Neuro non focal Skin no rash Appropriate affect Objective Data Active Medications Acetaminophen (Acetaminophen 325 Mg Tablet) 650 mg PO Q6H PRN PRN Reason: Pain, Mild (Pain Scale 1-3), fever or headache Last Admin: 12/10/23 20:21 Dose: 650 mg Documented By: YANA Albuterol Sulfate (Albuterol Sulfate 90 Mcg 8 Gm Inhaler) 2 puff INHALE RQ4H PRN PRN Reason: sob Last Admin: 12/09/23 21:07 Dose: 2 puff Documented By: DANE Benzonatate (Benzonatate 100 Mg Capsule) 100 mg PO TID PRN PRN Reason: Cough Last Admin: 12/09/23 21:07 Dose: 100 mg Documented By: DANE Calcium Carbonate (Calcium Carbonate 750 Mg Tab.Chew) 750 mg PO Q4H PRN PRN Reason: Heartburn Fluticasone/Vilanterol (Fluticasone/Vilanterol 100/25 Blst.W.Dev) 1 puff [facility] Last Admin: 12/11/23 08:35 Dose: 1 puff Documented By: ROBERT Piperacillin Sod/Tazobactam (Sod 3.375 gm/ Sodium Chloride) 50 mls @ 100 mls/hr IV Q6H [facility] Last Infusion: 12/11/23 09:22 Dose: Infused Documented By: LARISA Magnesium Hydroxide (Milk Of Magnesia 30 Ml Oral.Susp) 30 ml PO DAILY PRN PRN Reason: Constipation Melatonin (Melatonin 3 Mg Tablet) 6 mg PO BEDTIME PRN PRN Reason: Insomnia Morphine Sulfate (Morphine Sulfate 4 Mg/Ml Cartridge) 4 mg IVPUSH Q4H PRN; Protocol PRN Reason: Pain, Severe (Pain Scale 7-10) Last Admin: 12/11/23 08:56 Dose: 4 mg Documented By: LARISA Omeprazole (Omeprazole 20 Mg Capsule.Dr) 20 mg PO DAILY@0630 [facility] Last Admin: 12/11/23 06:01 Dose: 20 mg Documented By: YANA Ondansetron HCl (Ondansetron Hcl 4 Mg/2 Ml Vial) 4 mg IVPUSH Q8H PRN PRN Reason: Nausea and Vomiting Sodium Chloride (0.9 % Sodium Chloride Flush 3 Ml Syringe) 3 ml IVFLUSH QSHIFT [facility] Last Admin: 12/11/23 08:48 Dose: 3 ml Documented By: LARISA Labs 12/11/23 06:35 12/11/23 06:35 Labs: Laboratory Results - last 24 hr 12/11/23 06:35 MCV 86.2 MCH 28.6 MCHC 33.2 RDW 13.2 Plt Count 319 MPV 9.6 Absolute Nucleated RBC 0.000 Nucleated RBC % (auto) 0.0 Anion Gap 13 Estim Creat Clear Calc 143.4 Estimated GFR > 60 Random Glucose 102 Calcium 9.5 Microbiology Microbiology Results: Microbiology 12/08/23 15:23 Blood Culture - Preliminary Blood - Venous No growth after 48 hours. 12/08/23 15:24 Blood Culture - Preliminary Blood - Venous No growth after 48 hours. Assessment and Plan (1) Hematoma of kidney: Status: Acute (2) Acute flank pain: Status: Acute Plan 48-year-old male with a PMH significant for?mild intermittent asthma, GERD, and recurrent UTIs who has not seen a PCP in over 30 years who presents to the ED with?worsening right flank pain x1 week. Pt will be admitted to the hospital for treatment and further evaluation of complicated UTI. UTI with right flank pain Worsening right flank pain, no fevers , persistent leukocytosis, clinically stable CT of abd showing right perinephric stranding and subcapsular fluid collection ?of hematoma versus abscess urine culture <10,000 likely due to recent treatment with Bactrim, blood cultures x2 negative times 48 hours On IV Zosyn d3 s/p iv ceft x1 day Repeat renal ultrasound showed Redemonstration of complex subcapsular collection in the right kidney, minimally decreased in size compared to recent CT. Continue Analgesics for pain continue antibiotics and follow clinical course uro consult MAHENDRA Likely prerenal, resolved with IV fluid GERD Continue PPI Mild intermittent asthma continue albuterol mdi Full Code DVT Prophylaxis: Pneumatic compression Pt will require continued inpatient hospitalization for treatment of?UTI with right flank pain with perinephric stranding and question of hematoma versus abscess. Patient will require administration of IV antibiotics and specialist consultation with Urology Quality Stroke Does the patient have a stroke diagnosis?: No VTE Prior VTE?: No VTE Risk Level:: Medical - moderate - high VTE Device Contraindication: N/A - Device Ordered VTE Drug Contraindication: Treatment Not Indicated
[2023-12-12] MEDS: Piperacillin Sodium/Tazobactam 3.375 GM in 0.9 % Sodium Chloride 50 ML IV ×2 (02:11→08:05)
[2023-12-12 04:00] VITALS: BP 127/75; PULSE 79; RESP 18; TEMP 36.8; O2SAT 95
[2023-12-12] MEDS: Omeprazole 20 MG CAPSULE.DR PO (05:59)
[2023-12-12 06:20] LABS: Anion Gap 15 (12-20); Blood Urea Nitrogen 11 mg/dL (9-16); Calcium 9.5 mg/dL (8.4-10.2); Carbon Dioxide 24 mmol/L (22-29); Chloride 102 mmol/L (96-108); Creatinine Clr Calc Pharmacy 148.4; Estimated Glomerular Filt Rate > 60; Glucose Random 110 mg/dL (60-115); Potassium 3.6 mmol/L (3.3-5.1); Sodium 137 mmol/L (135-145)
[2023-12-12 06:27] LABS: Hematocrit 38.6 % (42.0-52.0); Hemoglobin 12.7 g/dl (14.0-18.0); Mean Corpuscular HGB Conc 32.9 g/dl (31.0-36.0); Mean Corpuscular Hemoglobin 28.8 pg (27.0-33.0); Mean Corpuscular Volume 87.5 fL (80.0-98.0); Mean Platelet Volume 9.6 fL (9.4-12.4); Platelet Count 347 X10*3/uL (160-400); Red Blood Count 4.41 X10*6/uL (4.60-5.80); Red Cell Distribution Width 12.8 % (11.0-16.0); White Blood Count 12.2 X10*3/uL (4.8-10.8)
[2023-12-12 07:11] VITALS: BP 137/78; PULSE 77; RESP 16; TEMP 36.2; O2SAT 93
[2023-12-12] MEDS: 0.9 % Sodium Chloride Flush 3 ML SYRINGE IVFLUSH ×3 (08:05→21:30)
[2023-12-12] MEDS: Fluticasone/Vilanterol 100/25 BLST.W.DEV 1 PUFF INHALE (08:41)
[2023-12-12 08:42] VITALS: PULSE 77; RESP 15; O2SAT 93
[2023-12-12] MEDS: levoFLOXacin 750 MG TABLET PO (09:10)
--- NOTE | 2023-12-12 11:31 | HO.PM.IMPN ---
Subjective Subjective Date of Service: 12/12/23 Interval History: Feeling better this morning, denies back pain,no fevers ,no chills ,no urinary symptoms. No acute events overnight. Review of Systems All other symptoms are reviewed and are negative. Physical Exam Vital Signs: Vital Signs: Last Vital Signs Temp 97.1 F 12/12/23 07:11 Pulse 77 12/12/23 08:42 Resp 15 12/12/23 08:42 BP 137/78 12/12/23 07:11 Pulse Ox 93 12/12/23 07:11 O2 Del Method Room Air 12/12/23 07:11 BMI result Body Mass Index 37.8 Const: Other: General sitting comfortably in no acute distress, face flushed. Neck no JVD. CVS regular rate rhythm, Respiratory lungs clear to auscultation, no respiratory distress, no wheeze, no rhonchi. Gastrointestinal abdomen soft, non tender, bowel sounds audible, no guarding , no rigidity. Extremities no edema. No CVA tenderness Neuro non focal Skin no rash Appropriate affect Objective Data Active Medications Acetaminophen (Acetaminophen 325 Mg Tablet) 650 mg PO Q6H PRN PRN Reason: Pain, Mild (Pain Scale 1-3), fever or headache Last Admin: 12/10/23 20:21 Dose: 650 mg Documented By: YANA Albuterol Sulfate (Albuterol Sulfate 90 Mcg 8 Gm Inhaler) 2 puff INHALE RQ4H PRN PRN Reason: sob Last Admin: 12/09/23 21:07 Dose: 2 puff Documented By: DANE Benzonatate (Benzonatate 100 Mg Capsule) 100 mg PO TID PRN PRN Reason: Cough Last Admin: 12/09/23 21:07 Dose: 100 mg Documented By: DANE Calcium Carbonate (Calcium Carbonate 750 Mg Tab.Chew) 750 mg PO Q4H PRN PRN Reason: Heartburn Fluticasone/Vilanterol (Fluticasone/Vilanterol 100/25 Blst.W.Dev) 1 puff INHALE RDAILY [facility] Last Admin: 12/12/23 08:41 Dose: 1 puff Documented By: ROBERT Levofloxacin (Levofloxacin 750 Mg Tablet) 750 mg PO DAILY [facility] Last Admin: 12/12/23 09:10 Dose: 750 mg Documented By: LARISA Magnesium Hydroxide (Milk Of Magnesia 30 Ml Oral.Susp) 30 ml PO DAILY PRN PRN Reason: Constipation Melatonin (Melatonin 3 Mg Tablet) 6 mg PO BEDTIME PRN PRN Reason: Insomnia Morphine Sulfate (Morphine Sulfate 4 Mg/Ml Cartridge) 4 mg IVPUSH Q4H PRN; Protocol PRN Reason: Pain, Severe (Pain Scale 7-10) Last Admin: 12/11/23 08:56 Dose: 4 mg Documented By: LARISA Omeprazole (Omeprazole 20 Mg Capsule.Dr) 20 mg PO DAILY@0630 [facility] Last Admin: 12/12/23 05:59 Dose: 20 mg Documented By: YANA Ondansetron HCl (Ondansetron Hcl 4 Mg/2 Ml Vial) 4 mg IVPUSH Q8H PRN PRN Reason: Nausea and Vomiting Sodium Chloride (0.9 % Sodium Chloride Flush 3 Ml Syringe) 3 ml IVFLUSH QSHIFT [facility] Last Admin: 12/12/23 08:05 Dose: 3 ml Documented By: LARISA Labs 12/12/23 05:29 12/12/23 05:29 Labs: Laboratory Results - last 24 hr 12/12/23 05:29 MCV 87.5 MCH 28.8 MCHC 32.9 RDW 12.8 Plt Count 347 MPV 9.6 Absolute Nucleated RBC 0.000 Nucleated RBC % (auto) 0.0 Anion Gap 15 Estim Creat Clear Calc 148.4 Estimated GFR > 60 Random Glucose 110 Calcium 9.5 Assessment and Plan (1) Hematoma of kidney: Status: Acute Plan 48-year-old male with a PMH significant for?mild intermittent asthma, GERD, and recurrent UTIs who has not seen a PCP in over 30 years who presents to the ED with?worsening right flank pain x1 week. Pt will be admitted to the hospital for treatment and further evaluation of complicated UTI. UTI with right flank pain no fevers , WBC trending down, clinically stable CT of abd showing right perinephric stranding and subcapsular fluid collection ?of hematoma versus abscess urine culture <10,000 likely due to recent treatment with Bactrim, blood cultures x2 negative times 48 hours On IV Zosyn d4 will transition to by mouth Levaquin Repeat renal ultrasound showed Redemonstration of complex subcapsular collection in the right kidney, minimally decreased in size compared to recent CT. Continue Analgesics for pain continue antibiotics and follow clinical course Will discuss further treatment plan with Urology MAHENDRA Likely prerenal, resolved with IV fluid GERD Continue PPI Mild intermittent asthma continue albuterol mdi Full Code DVT Prophylaxis: Pneumatic compression will require continued inpatient hospitalization for treatment of?UTI with right flank pain with perinephric stranding and question of hematoma versus abscess. Need close monitoring of electrolytes and CBC and expert consultation. Quality Stroke Does the patient have a stroke diagnosis?: No VTE Prior VTE?: No VTE Risk Level:: Medical - moderate - high VTE Device Contraindication: N/A - Device Ordered VTE Drug Contraindication: Treatment Not Indicated
[2023-12-12 15:39] VITALS: BP 130/74; PULSE 83; RESP 18; TEMP 36.2; O2SAT 94
[2023-12-12] MEDS: Benzonatate 100 MG CAPSULE PO (18:43)
[2023-12-12 19:35] VITALS: BP 144/72; PULSE 88; RESP 18; TEMP 36.2; O2SAT 93
[2023-12-13 01:21] VITALS: RESP 16
[2023-12-13 04:00] VITALS: BP 124/59; PULSE 76; RESP 16; TEMP 36; O2SAT 93
[2023-12-13 06:08] LABS: Hematocrit 37.8 % (42.0-52.0); Hemoglobin 12.6 g/dl (14.0-18.0); Mean Corpuscular HGB Conc 33.3 g/dl (31.0-36.0); Mean Corpuscular Hemoglobin 28.5 pg (27.0-33.0); Mean Corpuscular Volume 85.5 fL (80.0-98.0); Mean Platelet Volume 9.6 fL (9.4-12.4); Platelet Count 321 X10*3/uL (160-400); Red Blood Count 4.42 X10*6/uL (4.60-5.80); Red Cell Distribution Width 12.9 % (11.0-16.0); White Blood Count 11.1 X10*3/uL (4.8-10.8)
[2023-12-13] MEDS: Omeprazole 20 MG CAPSULE.DR PO (06:34)
[2023-12-13 07:50] VITALS: BP 130/83; PULSE 80; RESP 18; TEMP 36.3; O2SAT 93
[2023-12-13] MEDS: Fluticasone/Vilanterol 100/25 BLST.W.DEV 1 PUFF INHALE (07:52)
[2023-12-13 07:53] VITALS: PULSE 68; RESP 16; O2SAT 97
[2023-12-13] MEDS: 0.9 % Sodium Chloride Flush 3 ML SYRINGE IVFLUSH (08:55)
[2023-12-13] MEDS: levoFLOXacin 750 MG TABLET PO (08:55)
--- NOTE | 2023-12-13 10:44 | PM.DS ---
DS: Providers Provider Date of Service: 12/13/23 Date of admission: 12/08/23 17:36 Primary care physician: None Physician Consults: 12/08/23 17:49 Consult to Urology Routine Consulting Provider: [facility] Reason for consultation: Right perinephric stranding w/?Hematoma versus Abscess DS: Diagnosis Discharge Diagnosis (1) Hematoma of kidney: Status: Acute DS: Summary Hospital Course Hospital Course: History of presenting illness: Date of Service: 12/08/23 Attending physician on admission: Scarlet Taylor Chief Complaint: Right flank pain Pt is a 48-year-old male with a PMH significant for?mild intermittent asthma, GERD, and recurrent UTIs who has not seen a PCP in over 30 years who presents to the ED with?worsening right flank pain x1 week. Pt states has been having recurrent UTIs 1 or 2 times every year since he was 14 years old. Reports having UTI like symptoms 1 week ago which worsened on when he awoke up feeling like his torso ?had taken a thrashing?. Patient had right-sided flank pain and polyuria. [place] terrible and slept almost 19 hours that day. On Wednesday went to a walk-in clinic and was diagnosed with possible nephrolithiasis versus pyelonephritis. Was sent home Bactrim until to present to the emergency room if symptoms persisted or worsened. Patient states initially he felt much better, and was able to feel ?functional again? by Wednesday. Yesterday, however, symptoms worsened and he experienced subjective fever, chills, and right-sided flank pain now radiated to lower central abdomen. Fell nausea secondary to pain, but no vomiting. Has had reduced p.o. intake during this time. Pain worse with movement. Patient denies any recent trauma to his abdomen or back. No recent falls. Denies chest pain/pressure, palpitations. No shortness a breath or difficulty breathing. In the ED pt was hypertensive 04/22/1984, otherwise vitals WNL Labs were significant for leukocytosis of 15.4 H&H 13.6/39.7, and creatinine 1.21, otherwise grossly unremarkable and around baseline for patient. No significant electrolyte abnormalities. Lactic acid WNL at 1.8. Hepatic function WNL. UA likely positive with trace leukocyte esterase, 6-10 wbc's, moderate blood, 11-20 epithelial cells, and 3-[address]?of abdomen and pelvis found right perinephric stranding with questionable Ceftin cap sealer fluid collection possibly due to hematoma versus abscess measuring 8.2 x 6.3 x 3.8 cm. No hydronephrosis or nephrolithiasis. Also showed hepatosplenomegaly and bilateral renal cysts. Pt was treated with IVF, ketorolac, and ceftriaxone. Pt will be admitted to the hospital for treatment and further evaluation of complicated UTI. Hospital course: 48-year-old male with a PMH significant for?mild intermittent asthma, GERD, and recurrent UTIs who has not seen a PCP in over 30 years who presents to the ED with?worsening right flank pain x1 week, and admitted to medical floor with a diagnosis of UTI with right flank pain with right perinephric stranding and subcapsular fluid collection concerning for hematoma versus abscess, patient treated with IV antibiotics urine culture and blood culture showed no growth question related to recent treatment with Bactrim patient had no fevers WBC trended down repeat ultrasound redemonstrated cough complex subcapsular collection and right kidney minimally decreased in size compared to recent CT, patient pain improved significantly therefore he is being discharged home to finish a total 2 week course of antibiotic patient was followed by Urology recommend outpatient follow-up with Urology in 2 weeks' time and returned to check with recurrent symptoms, on admission noted to have MAHENDRA likely due to recent use of Bactrim and infection that resolved with IV fluid History of GERD Continue PPI Mild intermittent asthma no acute exacerbation noted, continue albuterol mdi Class 2 obesity recommend low-calorie diet Time Attestation Discharge Coordination Time (in mins): 38 Quality: Safe Use of Opioids Does Pt have an Active Cancer Diagnosis on the Problem List?: No Quality: Stroke Does the patient have a stroke diagnosis?: No Physical Exam Vital Signs: Vital Signs: Last Vital Signs Temp 97.4 F 12/13/23 07:50 Pulse 68 12/13/23 07:53 Resp 16 12/13/23 07:53 BP 130/83 12/13/23 07:50 Pulse Ox 93 12/13/23 07:50 O2 Del Method Room Air 12/13/23 07:50 BMI result Body Mass Index 37.8 Const: Other: General sitting comfortably in no acute distress, face flushed. Neck no JVD. CVS regular rate rhythm, Respiratory lungs clear to auscultation, no respiratory distress, no wheeze, no rhonchi. Gastrointestinal abdomen soft, non tender, bowel sounds audible, no guarding , no rigidity. Extremities no edema. No CVA tenderness Neuro non focal Skin no rash Appropriate affect DS: Data Data Completed and Pending Labs on day of discharge: Laboratory Results - last 24 hr 12/13/23 05:25 WBC 11.1 H RBC 4.42 L Hgb 12.6 L Hct 37.8 L MCV 85.5 MCH 28.5 MCHC 33.3 RDW 12.9 Plt Count 321 MPV 9.6 Absolute Nucleated RBC 0.000 Nucleated RBC % (auto) 0.0 Preliminary micro results at discharge 12/08/23 15:23 Blood Culture - Preliminary Blood - Venous No growth after 48 hours. 12/08/23 15:24 Blood Culture - Preliminary Blood - Venous No growth after 48 hours. Discharge Plan Discharge Anticipated Discharge Date/Time: 12/13/23 10:29 Patient Disposition: Home, Self-Care Discharge Diagnosis: Right renal capsular fluid collection Referrals: Physician,None [Primary Care Provider] - 1 Week Discharge Medications: New levofloxacin 500 mg tablet 500 mg PO DAILY Qty: 9 0RF Continued omeprazole 20 mg Tablet,Delayed Release (Dr/Ec) 20 mg PO DAILY Discontinued sulfamethoxazole-trimethoprim 800-160 mg tablet 1 tab PO BID Rx Instructions: Started Wednesday12/03/23 Discharge Orders: Discharge Order (Routine); Ordered 12/13/23 Ordered By: Scarlet Taylor Diet: Advance to usual diet Activity on Discharge: As tolerated Stand Alone Forms: Patient Portal Discharge page Print Language: Yoruba Care Plan Goals: Take by mouth Levaquin for 9 more days Return to check with recurrent pain, high-grade fevers, urinary symptoms Avoid strenuous activity for 1 week Health Concerns: GERD continue home medication Plan of Treatment: Outpatient follow-up with Urology in 2 weeks [address] for [address] Andres Brar Outpatient follow-up with primary care physician Assessment: As above
--- NOTE | 2023-12-13 11:19 | MHC.CM.PN ---
Patient is discharged to home self care. He will self transport home.
== END 2023-12-13 11:19 | disposition home or self-care (01) | DRG 463 ==
LOC: HO.ED 15:12 → HO.EDOVER 18:05 → HO.S3 19:48
PROVIDERS: Physician Assistant Medical; Admitting Provider Student in an Organized Health Care Education/Training Program; Emergency Provider Emergency Medicine; Visit Provider Hospitalist
DX: N15.1 Renal and perinephric abscess (principal); N17.9 Acute kidney failure, unspecified; J45.20 Mild intermittent asthma, uncomplicated; K21.9 Gastro-esophageal reflux disease without esophagitis; T36.8X5A Adverse effect of other systemic antibiotics, initial encounter; N28.89 Other specified disorders of kidney and ureter; E86.0 Dehydration; Z87.440 Personal history of urinary (tract) infections; Z79.899 Other long term (current) drug therapy
CPT/HCPCS: 36415; 74177; 76775; 80048; 80053; 81001; 82248; 83605; 83690; 85025; 85027; 85610; 85730; 87040; 87086; 94640; 99285; J0696; J1885; J2270; J2543; Q9967

== ENCOUNTER → 2023-12-08 17:36 | Outpatient (BNV) | payer MEDICAID, SELFPAY | PROVIDERS: Admitting Provider Student in an Organized Health Care Education/Training Program; Emergency Provider Emergency Medicine; Visit Provider Urology | DX: N15.1 Renal and perinephric abscess (principal); N39.0 Urinary tract infection, site not specified | CPT/HCPCS: 99222 ==

== ENCOUNTER → 2023-12-08 17:36 | Outpatient (BNV) | payer MEDICAID, SELFPAY | PROVIDERS: Admitting Provider Student in an Organized Health Care Education/Training Program; Emergency Provider Emergency Medicine; Visit Provider Student in an Organized Health Care Education/Training Program | DX: S37.019A Minor contusion of unspecified kidney, initial encounter (principal) | CPT/HCPCS: 99223; 99232; 99233; 99239 ==

== ENCOUNTER 2023-12-25 13:08 | Inpatient (IN) | payer MEDICAID, SELFPAY ==
--- NOTE | ~2023-12-25 | CT_ITS ---
EXAMINATION: CT ABDOMEN AND PELVIS WITH CONTRAST CLINICAL INFORMATION: Right flank pain. Recent renal abscess. COMPARISON: The scan of the abdomen and pelvis dated 12/08/2023 and 08/24/2022. TECHNIQUE: Multidetector CT volumetric acquisition of the abdomen and pelvis was performed after the administration of 85 mL of intravenous Omnipaque 350. The data set was reformatted in the sagittal and coronal planes and reviewed on an independent workstation. This CT examination was performed using dose optimization techniques as appropriate, variously including the following: *Automated exposure control *Adjustment of mA and/or kV according to patient size (this includes techniques or standardized protocols for targeted exams where dose is matched to indication/reason for exam; i.e. extremities or head) *Use of iterative reconstruction technique DLP: 943 mGy-cm. FINDINGS: LOWER CHEST: Scattered linear ectasis in the lung bases bilaterally. Small retrocardiac hiatal hernia, containing fat and small portion of the stomach. LIVER, GALLBLADDER, BILIARY TREE: Liver normal size and attenuation. No focal cystic or solid mass or intra-or extrahepatic ductal dilatation. Hepatic and portal veins patent. Gallbladder partially distended and within normal limits. PANCREAS: Diffusely atrophic. No ductal dilatation, mass, or surrounding stranding. SPLEEN: Enlarged, measuring 13.5 cm longitudinally.. Splenic vein patent. ADRENAL GLANDS AND KIDNEYS: Adrenal glands normal. There is a 1.4 x 1 cm mid left renal cyst, unchanged from prior exams and warranting no specific imaging follow-up. Left kidney otherwise unremarkable. The right kidney is asymmetrically mildly enlarged and edematous. There is a large 9.5 x 4.6 cm subcapsular collection seen along the posterior lateral aspect of the mid and lower right kidney with slightly thickened tello and surrounding fat stranding and edema, previously measuring 9.8 x 3.3 cm, suspicious for complex collection, such as an abscess. There is a subtle extension of this collection also along the anterior margin of the right kidney. Small cyst is again noted medially within the lower pole of the right kidney. There is adjacent thickening of Gerota s fascia and perinephric fat stranding and edema noted. URETERS AND BLADDER: Ureters decompressed and within normal limits. Bladder partially distended and within normal limits. PELVIC ORGANS: Unremarkable. GASTROINTESTINAL TRACT: Scattered colonic diverticula are seen with no evidence of acute diverticulitis. Small and large bowel loops decompressed. Appendix in right lower quadrant normal. LYMPHOVASCULAR STRUCTURES: Abdominal aorta normal in caliber. No periaortic collections. No abdominal or pelvic adenopathy or free fluid collection. BONES: Unremarkable. CT/CT abdomen pelvis w IV con IMPRESSION: * Edematous and mildly enlarged right kidney is seen with prominent surrounding fat stranding and edema, consistent with pyelonephritis. There is no associated large complex subcapsular fluid collection, largest along the posterior lateral aspect of the mid and lower pole of the right kidney with surrounding fat stranding and edema. Findings are suspicious for an abscess. * No evidence of nephrolithiasis or obstructive uropathy. * Splenomegaly. * Colonic diverticulosis. * Small retrocardiac hiatal hernia. Electronically signed by: Leena Silveira MD 12/25/2023 10:53 PM EDT
--- NOTE | ~2023-12-25 | US_ITS ---
EXAMINATION: US RETROPERITONEAL LIMITED, RIGHT (RENAL ONLY) CLINICAL INFORMATION: Follow-up right renal subcapsular collection status post drain 12/27/2023. COMPARISON: CT abdomen and pelvis 12/25/2023. TECHNIQUE: Ultrasound of the right kidney was performed. FINDINGS: The right kidney measures 11.4 x 6.3 x 6.1 cm. No hydronephrosis. No significant residual collection is appreciated by ultrasound with some limitation due to the rib cage. US/US renal RT IMPRESSION: No significant residual collection appreciated by ultrasound with some limitation due to the rib cage. Electronically signed by: Don Alejandro MD 12/30/2023 02:27 PM EDT
--- NOTE | ~2023-12-25 | CT_ITS ---
CLINICAL HISTORY: Right perinephric/subcapsular abscess PROCEDURES: 1. Limited preprocedure CT of the abdomen. Permanent images saved in PACS. 2. CT-guided drainage of right perinephric/subcapsular fluid collection 3. Limited post procedure CT of the abdomen. Permanent images saved in PACS. CLINICIANS: Mychal Torres PA-C Preprocedural imaging reviewed with Dr. Jordan MEDICATIONS: -Versed 2 mg, Fentanyl 100 mcg, and lidocaine 1% 10 mL SQ -Antibiotics: None -For additional details, please see nursing flowsheet. COMPLICATIONS: None ESTIMATED BLOOD LOSS: < 5 ml CONTRAST: None SPECIMENS: A specimen was sent for culture. MODERATE SEDATION TIME: 23 min PROCEDURE NOTE: The procedure, risks, benefits, and alternatives were carefully explained to the patient and written informed consent was obtained. The patient was placed prone on the CT table. A timeout was performed. A limited CT of the abdomen was performed to localize the fluid collection and choose appropriate needle entry and trajectory. The patient was prepped and draped in usual sterile fashion. The skin and subcutaneous tissues were anesthetized with lidocaine. Under CT guidance, a trocar was advanced to the fluid collection. Dark, nonclotting blood tinged fluid was immediately aspirated. A 0.0035 J wire was inserted through the the trocar needle and coiled in the fluid collection. The trocar needle was then removed over the wire. The tract was then serially dilated. Over the wire, a 10 fr all-purpose drainage catheter was advanced and coiled into the fluid collection under CT guidance. The wire was then removed. A total of 80 ml of turbid, dark, nonclotting blood tinged fluid was removed and sent for culture. The catheter was secured to the skin with a 2-0 nylon suture. A JIMMY bulb was then attached to the drainage catheter. A limited postprocedure CT was then obtained. The patient was stable after the procedure and was transferred to the post anesthesia care unit. The procedure was done under moderate sedation with a dedicated nurse for monitoring of vital signs. CT/CT drain retroperitoneal Impression: CT guided drainage of right perinephric/subcapsular fluid collection. This procedure was performed by Mychal Torres PA-C and supervised by Dr. Jordan. Electronically signed by: Nicolas Eric MD 01/12/2024 02:38 PM EDT
--- NOTE | 2023-12-25 13:32 | ED.GENADULT ---
HPI - General Adult General Chief complaint: Abdominal Pain Stated complaint: antibiotics not working Time Seen by Provider: 12/25/23 20:48 Source: patient, RN notes reviewed and old records reviewed Mode of arrival: ambulatory Limitations: no limitations History of Present Illness ED Provider: Diana HPI narrative: 48-year-old male with past medical history significant for recurrent UTI, recent admission for renal abscess presents for evaluation of right flank pain. Patient was discharged from this facility on 12/13/2023 after an admission for a right renal abscess. He was discharged with levofloxacin for a total of a 2 week course of antibiotics. He is due to follow-up with urology as an outpatient Patient reports that while taking his antibiotics he was feeling better. He now states that his symptoms are returning with intermittent right flank pain, nausea The patient denies any fevers, chills. His pain is currently a 4/10 His pain is improved with acetaminophen No other complaints or concerns at this time Related Data Home Medications ?Medication ?Instructions ?Recorded ?Confirmed omeprazole 20 mg tablet,delayed 20 mg PO DAILY 12/08/23 12/13/23 release Allergies Allergy/AdvReac Type Severity Reaction Status Date / Time No Known Allergies Allergy Verified 12/25/23 13:36 Review of Systems Constitutional: Constitutional: Denies body ache(s), Denies chills, Denies fever(s) and Denies headache(s) Eyes: Eyes: Denies blurry vision ENT: Denies dizziness and Denies headache(s) Cardiovascular: Cardiovascular: Denies chest pain and Denies dyspnea Respiratory: Respiratory: Denies cough and Denies dyspnea Gastrointestinal: Gastrointestinal: Denies abdominal pain, Denies nausea and Denies vomiting Genitourinary: Genitourinary: Reports flank pain and Denies testicular pain Musculoskeletal: Musculoskeletal: Reports back pain Integumentary/Breasts: Skin/Breast: Denies rash Neurologic: Denies dizziness and Denies headache(s) [facility] Past Medical History Medical History (Updated 12/25/23 @ 22:20 by Mychal Ortiz) Renal abscess GERD (gastroesophageal reflux disease) History of asthma Surgical History [place] teeth extracted History of esophagogastroduodenoscopy (EGD) Social History Social History Household Members: None Housing: House Do you presently have visiting nurse or other home services: No Alcohol intake: current Alcohol intake frequency: a few times a month Alcohol type: hard liquor Patient Tobacco Use Status: Never used Tobacco Smoked in Last 30 Days: No Use of substances other than those prescribed or required for medical reasons: No Advance Directives: No Do you have a plan to hurt others: No Plan service: No Physical Exam ED Vital Signs: Vital Signs - 24 hr 12/25/23 13:33 12/25/23 16:57 12/25/23 20:51 Temperature 97.6 F 98.1 F 98.5 F Pulse Rate 84 75 77 Respiratory Rate 20 17 17 Blood Pressure 122/83 137/81 140/80 H Pulse Oximetry 94 98 96 Oxygen Delivery Method Room Air Room Air Room Air BMI result Body Mass Index 35.5 Const General: healthy appearing, comfortable, no acute distress, alert and awake Nutritional Appearance: well nourished Orientation/consciousness: patient oriented x3 HENMT Head: Yes normocephalic and Yes atraumatic Eyes Eyelids: Yes eyelids normal Conjunctivae: conjunctivae normal Sclerae: sclerae normal Corneas: corneas normal Pupils: Equal, round and reactive pupils present EOM: EOMs intact bilaterally Neck Neck: Yes full ROM Resp Effort & Inspection: normal respiratory effort, able to speak in complete sentences and not labored GI Other: No CVA tenderness bilaterally Inspection: No distended Palpation (GI): Soft to palpation, not firm, nontender, no guarding and not rigid Skin General skin exam: elasticity normal Neuro General: patient oriented x3 Cranial nerves: Yes Equal, round and reactive pupils present and Yes Bilaterally intact EOM present Cognition (Neuro): normal cognition Extrem Other: Moving all extremities well without any obvious deformities Course Course Course Narrative: RME performed by Danni Dang PA-C. Patient is a 48 year old assigned male at presenting to the emergency department with right flank pain. Patient states that he was recently admitted for a fluid collection and infection. Patient states the pain has worsened since the antibiotics have stopped. Detailed physical exam and review of systems are deferred to the systems administration analyst. Labs ordered. Patient placed back in the waiting room pending room availability and results. Medications Administered Discontinued Medications Generic Name Dose Route Start Last Admin Trade Name Freq PRN Reason Stop Dose Admin Iohexol 85 ml 12/25/23 21:40 12/25/23 21:40 Iohexol 350 Mg/Ml 100 Ml Infus..Btl IV 12/25/23 21:41 85 ml ONCE ONE Administration Medical Decision Making Medical Decision Making [facility] Narrative: 48-year-old male presents for evaluation of right flank pain. I reviewed his recent discharge. He did not have any drainage procedure for the right renal abscess. He has no leukocytosis today. He does have a mild anemia with a hemoglobin 11.8 and hematocrit 35.8. This is slightly decreased from his discharge on 12/13/2023. He has no left shift. Patient's electrolytes are reassuring, his anion gap is 11, renal function within normal limits. His urinalysis shows proteinuria, hematuria, no white cells, no nitrites, no esterase and no bacteria seen. Calcium oxalate crystals were noted in the urine. It is possible that his pain is unrelated to his recent renal infection. Plan for repeat CT scan of the abdomen pelvis with IV contrast to evaluate for right renal abscess versus hematoma worse obstructive uropathy Differential Diagnosis Differential Diagnoses: The differential diagnosis associated with the presentation includes Right renal abscess UTI Complicated pyelonephritis Renal hematoma Renal cyst Lab Data [facility] Lab Attestation statement: I reviewed the patient's lab results. Please see above 12/25/23 14:28 12/25/23 14:28 Labs: Lab Results 12/25/23 12/25/23 Range/Units 14:28 17:00 WBC 9.4 (4.8-10.8) X10*3/uL RBC 4.16 L (4.60-5.80) X10*6/uL Hgb 11.8 L (14.0-18.0) g/dl Hct 35.8 L (42.0-52.0) % MCV 86.1 (80.0-98.0) fL MCH 28.4 (27.0-33.0) pg MCHC 33.0 (31.0-36.0) g/dl RDW 12.9 (11.0-16.0) % Plt Count 315 (160-400) X10*3/uL MPV 9.2 L (9.4-12.4) fL Immature Gran % (Auto) 0.3 (0.0-0.4) % Neut % (Auto) 70.3 (45-73) % Lymph % (Auto) 21.4 (20-40) % [place] % (Auto) 6.3 (2-11) % Eos % (Auto) 1.3 (0-4) % Baso % (Auto) 0.4 (0-2) % Lymph # (Auto) 2.0 (1.2-4.9) X10*3/uL [place] # (Auto) 0.6 (0.1-1.2) X10*3/uL Eos # (Auto) 0.1 (0.0-0.4) X10*3/uL Baso # (Auto) 0.0 (0.0-0.2) X10*3/uL Abs Immat Gran (auto) 0.03 (0.00-0.03) X10*3/uL Absolute Neuts (auto) 6.6 (2.0-8.3) x10*3/uL Absolute Nucleated RBC 0.000 (0.0-0.012) X10*3/uL Nucleated RBC % (auto) 0.0 (0.0-0.2) /100WBC Sodium 140 (135-145) mmol/L Potassium 4.1 (3.3-5.1) mmol/L Chloride 106 (96-108) mmol/L Carbon Dioxide 27 (22-29) mmol/L Anion Gap 11 L (12-20) BUN 15 (9-16) mg/dL Creatinine 0.91 (0.5-1.4) mg/dL Estim Creat Clear Calc 139.6 Estimated GFR > 60 Random Glucose 124 H (60-115) mg/dL Calcium 9.5 (8.4-10.2) mg/dL Magnesium 2.1 (1.6-2.6) mg/dL Total Bilirubin 0.3 (0.0-1.0) mg/dL AST 19 (5-37) U/L ALT 16 (0-40) U/L Alkaline Phosphatase 64 (39-117) U/L Total Protein 8.5 H (6.5-8.0) g/dL Albumin 3.3 L (3.5-5.0) g/dL Urine Color Dark Yellow Urine Appearance Cloudy Urine pH 5.5 (5.0-9.0) Ur Specific [place] >= 1.030 H (1.005-1.025) Urine Protein 100 (2+) H (Neg-Trace) mg/dL Urine Glucose (UA) Negative (Negative) mg/dL Urine Ketones 15 (Negative) mg/dL Urine Blood Negative (Negative) Urine Nitrite Negative (Negative) Ur Leukocyte Esterase Negative (Negative) Urine RBC 6-10 H (0-2) /HPF Urine WBC 0-5 (0-5) /HPF Ur Squamous Epith Cells 11-20 (0-2) /HPF Calcium Oxalate Crystal Present Urine Bacteria None Seen (None Seen) Hyaline Casts 6-10 (0-2) /LPF Influenza Type A (PCR) NEGATIVE (Negative) Influenza Type B (PCR) NEGATIVE (Negative) RSV RNA Qual (PCR) NEGATIVE (Negative) SARS-CoV-2 RNA (RT-PCR) NEGATIVE (Negative) Discharge Plan Discharge Clinical Impression: Acute flank pain Patient Disposition: Still a Patient Prescriptions: No Action omeprazole 20 mg Tablet,Delayed Release (Dr/Ec) 20 mg PO DAILY Print Language: Guamanian
[2023-12-25 13:33] VITALS: BP 122/83; PULSE 84; RESP 20; TEMP 36.4; O2SAT 94; BMI 35.5
[2023-12-25 14:31] LABS: MANUAL DIFF FLAG NO
[2023-12-25 14:33] LABS: Basophils Percent Auto 0.4 % (0-2); Eosinophils Absolute Auto 0.1 X10*3/uL (0.0-0.4); Eosinophils Percent Auto 1.3 % (0-4); Hematocrit 35.8 % (42.0-52.0); Hemoglobin 11.8 g/dl (14.0-18.0); Imm Gran Abs Auto 0.03 X10*3/uL (0.00-0.03); Imm Gran Pct Auto 0.3 % (0.0-0.4); Lymphocytes Percent Auto 21.4 % (20-40); Mean Corpuscular Hemoglobin 28.4 pg (27.0-33.0); Mean Corpuscular Volume 86.1 fL (80.0-98.0); Mean Platelet Volume 9.2 fL (9.4-12.4); Monocytes Absolute Auto 0.6 X10*3/uL (0.1-1.2); Monocytes Percent Auto 6.3 % (2-11); Neutrophils Absolute Auto 6.6 x10*3/uL (2.0-8.3); Neutrophils Percent Auto 70.3 % (45-73); Platelet Count 315 X10*3/uL (160-400); Red Blood Count 4.16 X10*6/uL (4.60-5.80); Red Cell Distribution Width 12.9 % (11.0-16.0); White Blood Count 9.4 X10*3/uL (4.8-10.8)
[2023-12-25 14:49] LABS: Alanine Aminotransferase 16 U/L (0-40); Albumin Level 3.3 g/dL (3.5-5.0); Alkaline Phosphatase 64 U/L (39-117); Anion Gap 11 (12-20); Aspartate Amino Transferase 19 U/L (5-37); Bilirubin Total 0.3 mg/dL (0.0-1.0); Blood Urea Nitrogen 15 mg/dL (9-16); Calcium 9.5 mg/dL (8.4-10.2); Carbon Dioxide 27 mmol/L (22-29); Chloride 106 mmol/L (96-108); Creatinine Clr Calc Pharmacy 139.6; Estimated Glomerular Filt Rate > 60; Glucose Random 124 mg/dL (60-115); Magnesium 2.1 mg/dL (1.6-2.6); Potassium 4.1 mmol/L (3.3-5.1); Sodium 140 mmol/L (135-145); Total Protein 8.5 g/dL (6.5-8.0)
[2023-12-25 15:08] LABS: Influenza A PCR NEGATIVE (Negative); Influenza B PCR NEGATIVE (Negative); Resp Syncy Virus RNA Qual PCR NEGATIVE (Negative); SARS COV2 PCR INHOUSE NEGATIVE (Negative)
[2023-12-25 16:57] VITALS: BP 137/81; PULSE 75; RESP 17; TEMP 36.7; O2SAT 98
[2023-12-25 17:06] LABS: Appearance Urine Cloudy; Color Urine Dark Yellow; Glucose Urine UA Negative (Negative); Leukocyte Esterase Urine Negative (Negative); Nitrite Urine Negative (Negative); PH 5.5 (5.0-9.0); Specific Gravity - Urine >= 1.030 (1.005-1.025); UMIC TRIGGER UACC YES; Urine Blood Negative (Negative); Urine Ketones 15 mg/dL (Negative); Urine Protein 100 (2+) mg/dL (Neg-Trace)
[2023-12-25 17:43] LABS: Bacteria Urine None Seen (None Seen); Calcium Oxalate Crystals Urine Present; WBC Urine 0-5 /HPF (0-5)
--- NOTE | 2023-12-25 18:55 | PC.NURSE ---
Report received from Iris BAHENA, assume care of pt at this time
[2023-12-25 20:51] VITALS: BP 140/80; PULSE 77; RESP 17; TEMP 36.9; O2SAT 96
[2023-12-25] MEDS: iohexoL 350 MG/ML 100 ML INFUS..BTL 85 ML IV (21:40)
--- NOTE | 2023-12-25 22:43 | PC.NURSE ---
resting quietly, resp with ease, informed pt, nothing by mouth, until ct results, understandifng voiced
[2023-12-25 23:09] VITALS: BP 116/63; PULSE 74; RESP 20; TEMP 37; O2SAT 96
--- NOTE | 2023-12-25 23:30 | MHC.EDTECH ---
This tech took over care of patient at 2300,rounds/vitals completed,Blood Culture/lactic drawn and sent to lab,belongings list completed and copy placed in chart,call stephen in reach
[2023-12-25] MEDS: Piperacillin Sodium/Tazobactam 3.375 GM in 0.9 % Sodium Chloride 50 ML IV (23:33)
[2023-12-25 23:36] LABS: Lactic Acid 0.5 mmol/L (0.5-2.0)
--- NOTE | 2023-12-25 23:52 | PM.IMHP ---
History of Present Illness Date of Service: 12/25/23 Chief Complaint: right flank pain This 48-year-old male with a history of recurrent UTIs and recent hospitalization from 12/07 to 12/12 for pyelonephritis complicated by perinephric stranding and a subcapsular fluid collection (suspicious for hematoma or abscess). Urology (Dr. Brar) advised 2 weeks of Abx (levaquin) which he just finished. He is now presenting again with right flank pain. His recent CT scan shows signs of worsening or unresolved infection, with a large complex subcapsular fluid collection and surrounding edema, suggestive of an abscess. Despite clean UA and absence of leukocytosis, his clinical presentation and imaging are concerning for a complicated renal abscess and has been initiated on Zosyn and may ultimately intervention such as IR guided drainage Review of Systems Review of Systems: Gen: no fever Resp: no sob, no cough CV: no chest, no ENRIQUE, no leg edema GI: No n/v, no abd pain : right flank pain Neuro: No confusion Yes all other systems are reviewed and are negative [facility] Medical History (Updated 12/25/23 @ 23:55 by Mk Roca MD) Renal abscess GERD (gastroesophageal reflux disease) History of asthma Surgical History [place] teeth extracted History of esophagogastroduodenoscopy (EGD) Social History Household Members: None Housing: House Do you presently have visiting nurse or other home services: No Alcohol intake: current Alcohol intake frequency: a few times a month Alcohol type: hard liquor Patient Tobacco Use Status: Never used Tobacco Smoked in Last 30 Days: No Use of substances other than those prescribed or required for medical reasons: No Advance Directives: No Do you have a plan to hurt others: No Plan service: No Meds Allergies Allergy/AdvReac Type Severity Reaction Status Date / Time No Known Allergies Allergy Verified 12/25/23 13:36 Home Medications ?Medication ?Instructions ?Recorded ?Confirmed ?Last Taken ?Type omeprazole 20 mg tablet,delayed 20 mg PO DAILY 12/08/23 12/13/23 12/08/23 History release Physical Exam Vital Signs and Narrative: Vital Signs: Last Vital Signs Temp 98.6 F 12/25/23 23:09 Pulse 74 12/25/23 23:09 Resp 20 12/25/23 23:09 BP 116/63 12/25/23 23:09 Pulse Ox 96 12/25/23 23:09 O2 Del Method Room Air 12/25/23 23:09 BMI result Body Mass Index 35.5 Constitutional: Alert, in no distress, Mental Status: Oriented to person, place and time. Eyes: Pupils are equal, round and reactive to light. Ear, Nose and Throat: Oropharynx clear, mucous membranes moist. Ears and nose without deformities. Trachea midline. Respiratory: Clear to auscultation. No wheezing, rales or rhonchi. Cardiovascular: S1 S2 regular. No murmurs, rubs or gallops. Gastrointestinal: Abdomen soft, non-tender, non-distended. Normal bowel sounds.? Neurologic: Cranial nerves II-XII grossly intact. No focal neurological deficits. Moves all extremities spontaneously.? Skin: No rashes or lesions.? Musculoskeletal: No cyanosis or clubbing. Psychiatric: Normal mood and affect? Results Labs 12/25/23 14:28 12/25/23 14:28 Labs: Laboratory Results - last 24 hr 12/25/23 12/25/23 12/25/23 14:28 17:00 23:23 MCV 86.1 MCH 28.4 MCHC 33.0 RDW 12.9 Plt Count 315 MPV 9.2 L Immature Gran % (Auto) 0.3 Neut % (Auto) 70.3 Lymph % (Auto) 21.4 [place] % (Auto) 6.3 Eos % (Auto) 1.3 Baso % (Auto) 0.4 Lymph # (Auto) 2.0 [place] # (Auto) 0.6 Eos # (Auto) 0.1 Baso # (Auto) 0.0 Abs Immat Gran (auto) 0.03 Absolute Neuts (auto) 6.6 Absolute Nucleated RBC 0.000 Nucleated RBC % (auto) 0.0 Anion Gap 11 L Estim Creat Clear Calc 139.6 Estimated GFR > 60 Random Glucose 124 H Lactic Acid 0.5 Calcium 9.5 Magnesium 2.1 Total Bilirubin 0.3 AST 19 ALT 16 Alkaline Phosphatase 64 Total Protein 8.5 H Albumin 3.3 L Urine Color Dark Yellow Urine Appearance Cloudy Urine pH 5.5 Ur Specific [place] >= 1.030 H Urine Protein 100 (2+) H Urine Glucose (UA) Negative Urine Ketones 15 Urine Blood Negative Urine Nitrite Negative Ur Leukocyte Esterase Negative Urine RBC 6-10 H Urine WBC 0-5 Ur Squamous Epith Cells 11-20 Calcium Oxalate Crystal Present Urine Bacteria None Seen Hyaline Casts 6-10 Influenza Type A (PCR) NEGATIVE Influenza Type B (PCR) NEGATIVE RSV RNA Qual (PCR) NEGATIVE SARS-CoV-2 RNA (RT-PCR) NEGATIVE Imaging Radiologist's Impressions: Impressions Abdomen/Pelvis CT 12/25/23 21:12 IMPRESSION: * Edematous and mildly enlarged right kidney is seen with prominent surrounding fat stranding and edema, consistent with pyelonephritis. There is no associated large complex subcapsular fluid collection, largest along the posterior lateral aspect of the mid and lower pole of the right kidney with surrounding fat stranding and edema. Findings are suspicious for an abscess. * No evidence of nephrolithiasis or obstructive uropathy. * Splenomegaly. * Colonic diverticulosis. * Small retrocardiac hiatal hernia. Electronically signed by: Leena Silveira MD 12/25/2023 10:53 PM EDT RP Assessment and Plan (1) Pyelonephritis: Status: Acute (2) Kidney abscess: Status: Acute Plan 48/m with recurrent pyelonephritis now complicated by worsening renal abscess Acute pyelonephritis with renal abscess -IV Zosyn -cultures pending -Urology consult -IR consult wednesday for possible drainage GERD -Continue PPI Mild intermittent asthma, no exacerbation -Inhalers PRN Full Code DVT Prophylaxis: Pneumatic compressio, Quality Stroke Does the patient have a stroke diagnosis?: No VTE Prior VTE?: No VTE Risk Level:: Medical - moderate - high VTE Device Contraindication: Treatment Not Tolerated VTE Drug Contraindication: N/A - Med Ordered
[2023-12-26 02:35] VITALS: BP 140/79; PULSE 70; RESP 16; TEMP 36; O2SAT 95
[2023-12-26] MEDS: Acetaminophen 325 MG TABLET 650 MG PO ×3 (02:46→21:50)
[2023-12-26 03:18] VITALS: RESP 16
[2023-12-26] MEDS: Piperacillin Sodium/Tazobactam 4.5 GM in 0.9 % Sodium Chloride 100 ML IV ×4 (06:41→23:38)
[2023-12-26] MEDS: 0.9 % Sodium Chloride Flush 3 ML SYRINGE IVFLUSH ×3 (07:13→23:38)
--- NOTE | 2023-12-26 07:34 | PHA.MEDREC ---
Addendum entered by Elena Singh RPh 12/27/23 07:11: reviewed by [facility]. Original Note: Pharmacy Consult ? Medication Reconciliation Pharmacy has completed the medication reconciliation. Recently discharged 12/13/23. Utilized discharge packet. Per provider notes, patient finished levaquin antibiotic course.
[2023-12-26 07:45] VITALS: BP 142/82; PULSE 80; RESP 18; TEMP 36.1; O2SAT 97
--- NOTE | 2023-12-26 11:14 | MHC.CM.PN ---
PATIENT IS INDEPENDENT WITH ADLS. CAR IS IN [facility] LOT. NO DME OR VNA. HE IS IN THE PROCESS OF SECURING A PCP [facility] BUT NEEDS MH VERIFICATION OF RECEIVED DOCUMENTS IN ORDER TO FIND A CONTRACTED PHYSICIAN. HE DENIES NEED FOR HCP PLAN IS HOME - SELF CARE WHEN HE IS DC. CM FOLLOWING IN THE EVENT THAT HIS CARE NEEDS CHANGE.
--- NOTE | 2023-12-26 11:50 | P.PNIM_ITS ---
Subjective Subjective Date of Service: 12/26/23 Interval History: Complaining of mild right flank discomfort, denies fever, no chills, no urinary symptoms of urgency, no frequency, no nausea, no vomiting, no other acute events overnight, pain controlled with Tylenol. Finish 2 week course of Levaquin, started on IV Zosyn in the emergency room. Review of Systems All other system reviewed and are negative Physical Exam 2 Vital Signs: Vital Signs: Last Vital Signs Temp 96.9 F 12/26/23 07:45 Pulse 80 12/26/23 07:45 Resp 18 12/26/23 07:45 BP 142/82 H 12/26/23 07:45 Pulse Ox 97 12/26/23 07:45 O2 Del Method Room Air 12/26/23 07:45 BMI result Body Mass Index 35.5 Const: Other: General sitting comfortably in no acute distress. Neck no JVD. CVS regular rate rhythm, Respiratory lungs clear to auscultation, no respiratory distress, no wheeze, no rhonchi. Gastrointestinal abdomen soft, non tender, bowel sounds audible, no guarding , no rigidity. Extremities no edema. No CVA tenderness Neuro non focal Skin no rash Appropriate affect Objective Data Active Medications Acetaminophen (Acetaminophen 325 Mg Tablet) 650 mg PO Q6H PRN PRN Reason: Pain, Mild (Pain Scale 1-3), fever or headache Last Admin: 12/26/23 02:46 Dose: 650 mg Documented By: TAMELA Albuterol Sulfate (Albuterol Sulfate 90 Mcg 8 Gm Inhaler) 2 puff INHALE RQ6H PRN PRN Reason: Shortness of Breath/Wheezing Calcium Carbonate (Calcium Carbonate 750 Mg Tab.Chew) 750 mg PO Q4H PRN PRN Reason: Heartburn Piperacillin Sod/Tazobactam (Sod 4.5 gm/ Sodium Chloride) 100 mls @ 200 mls/hr IV Q6H [facility]LE[facility]AN Last Infusion: 12/26/23 07:12 Dose: Infused Documented By: COTEMA Magnesium Hydroxide (Milk Of Magnesia 30 Ml Oral.Susp) 30 ml PO DAILY PRN PRN Reason: Constipation Melatonin (Melatonin 3 Mg Tablet) 6 mg PO BEDTIME PRN PRN Reason: Insomnia Morphine Sulfate (Morphine Sulfate 2 Mg/Ml Cartridge) 2 mg IVPUSH Q6H PRN; Protocol PRN Reason: Pain, Severe (Pain Scale 7-10) Sodium Chloride (0.9 % Sodium Chloride Flush 3 Ml Syringe) 3 ml IVFLUSH QSHIFT [facility] Last Admin: 12/26/23 07:13 Dose: 3 ml Documented By: RAPHAEL Labs 12/25/23 14:28 12/25/23 14:28 Labs: Laboratory Results - last 24 hr 12/25/23 12/25/23 12/25/23 14:28 17:00 23:23 MCV 86.1 MCH 28.4 MCHC 33.0 RDW 12.9 Plt Count 315 MPV 9.2 L Immature Gran % (Auto) 0.3 Neut % (Auto) 70.3 Lymph % (Auto) 21.4 [place] % (Auto) 6.3 Eos % (Auto) 1.3 Baso % (Auto) 0.4 Lymph # (Auto) 2.0 [place] # (Auto) 0.6 Eos # (Auto) 0.1 Baso # (Auto) 0.0 Abs Immat Gran (auto) 0.03 Absolute Neuts (auto) 6.6 Absolute Nucleated RBC 0.000 Nucleated RBC % (auto) 0.0 Anion Gap 11 L Estim Creat Clear Calc 139.6 Estimated GFR > 60 Random Glucose 124 H Lactic Acid 0.5 Calcium 9.5 Magnesium 2.1 Total Bilirubin 0.3 AST 19 ALT 16 Alkaline Phosphatase 64 Total Protein 8.5 H Albumin 3.3 L Urine Color Dark Yellow Urine Appearance Cloudy Urine pH 5.5 Ur Specific [place] >= 1.030 H Urine Protein 100 (2+) H Urine Glucose (UA) Negative Urine Ketones 15 Urine Blood Negative Urine Nitrite Negative Ur Leukocyte Esterase Negative Urine RBC 6-10 H Urine WBC 0-5 Ur Squamous Epith Cells 11-20 Calcium Oxalate Crystal Present Urine Bacteria None Seen Hyaline Casts 6-10 Influenza Type A (PCR) NEGATIVE Influenza Type B (PCR) NEGATIVE RSV RNA Qual (PCR) NEGATIVE SARS-CoV-2 RNA (RT-PCR) NEGATIVE Assessment and Plan (1) Acute flank pain: Status: Acute Plan 48/m with PMH significant for?mild intermittent asthma, GERD, and recurrent UTIs who has not seen a PCP in over 30 years recently discharged from [facility] on 12/12 with a diagnosis of acute pyelonephritis finish 2 weeks' course of Levaquin during that admission noted to have right perinephric stranding and subcapsular fluid collection question of hematoma versus abscess, since fluid collection was improving on repeat abdominal ultrasound no intervention was done and patient was recommended outpatient urology follow-up however patient returned back due to recurrent right flank intermittent pain and nausea. Right flank pain question recurrent pyelonephritis with associated large complex subcapsular fluid collection suspicious for an abscess -no fevers, normal urinalysis, no leukocytosis, blood cultures x2 pending -IV Zosyn started on 12/25 -cultures pending -Urology consult, will discuss with Urology regarding IR consult for possible drainage -NPO after midnight GERD -Continue PPI Class 2 obesity recommend low-calorie diet Mild intermittent asthma, no exacerbation -Inhalers PRN Full Code DVT Prophylaxis: Pneumatic compression, Patient will require continued inpatient hospitalization for management of right flank pain/recurrent pyelonephritis requiring IV antibiotic and expert consultation. Quality Stroke Does the patient have a stroke diagnosis?: No VTE Prior VTE?: No VTE Risk Level:: Medical - moderate - high VTE Device Contraindication: Treatment Not Tolerated VTE Drug Contraindication: N/A - Med Ordered
[2023-12-26 15:14] VITALS: BP 136/75; PULSE 67; RESP 16; TEMP 36.6; O2SAT 95
[2023-12-26 23:33] VITALS: BP 146/87; PULSE 72; RESP 16; TEMP 36.1; O2SAT 96
[2023-12-27] MEDS: Piperacillin Sodium/Tazobactam 4.5 GM in 0.9 % Sodium Chloride 100 ML IV ×4 (05:41→23:55)
[2023-12-27 06:55] VITALS: BP 110/64; PULSE 72; RESP 16; TEMP 36.6; O2SAT 95
[2023-12-27] MEDS: 0.9 % Sodium Chloride Flush 3 ML SYRINGE IVFLUSH ×2 (07:37→23:55)
[2023-12-27] MEDS: Acetaminophen 325 MG TABLET 650 MG PO ×2 (07:40→15:29)
--- NOTE | 2023-12-27 10:16 | PM.UROCN ---
History of Present Illness Consult details Consult date: 12/27/23 Narrative: Amos was recently admitted and treated with abx for pyelonephitis and renal hematoma. He present with persistent pain, completed course of levaquin. CTAP concerning for renal abscess. Review of Systems Review of Systems: Yes all other systems are reviewed and are negative Constitutional: Constitutional: Reports no additional constitutional complaints Eyes: Eyes: Reports no additional eye complaints ENT: Reports system reviewed and no additional complaints, except as documented Cardiovascular: Cardiovascular: Reports no additional cardiovascular complaints Respiratory: Respiratory: Reports no additional respiratory complaints Gastrointestinal: Gastrointestinal: Reports no additional gastrointestinal complaints Genitourinary: Genitourinary: Reports as per HPI Musculoskeletal: Musculoskeletal: Reports no additional musculoskeletal complaints Integumentary/Breasts: Skin/Breast: Reports system reviewed and no additional complaints, except as docu Neurologic: Reports system reviewed and no additional complaints, except as documented Psychiatric: Psychiatric: Reports no additional psychiatric complaints Endocrine: Endocrine: Reports no additional endocrine complaints Hematologic/Lymphatic: Hematologic/Lymphatic: Reports no additional hematologic/lymphatic complaints Allergic/Immunologic: Allergic/Immunologic: Reports no additional allergic/immunologic complaints [facility] Past Medical History Medical History Renal abscess GERD (gastroesophageal reflux disease) History of asthma Surgical History Surgical History Dickey teeth extracted History of esophagogastroduodenoscopy (EGD) Social History Social History Household Members: None Housing: House Do you presently have visiting nurse or other home services: No Alcohol intake: current Alcohol intake frequency: a few times a month Alcohol type: hard liquor Patient Tobacco Use Status: Never used Tobacco Smoked in Last 30 Days: No Patient Interested in Nicotine Replacement: No Patient Given Instructions on How to Stop Smoking: No Second Hand Smoke Exposure: No Use of substances other than those prescribed or required for medical reasons: No Currently Displaying Signs/Symptoms of Drug Intoxication Withdrawal: No Any prior treatment program specific to substance use: No Have you been hit, kicked, punched, or otherwise hurt by someone within the past year? If so, by whom?: No Do you feel safe in your current relationship?: No Current Relationship Is there a partner from a previous relationship who is making you feel unsafe now?: No Are you made to feel afraid or neglected: No Advance Directives: No Do you have a plan to hurt others: No Plan Recently lost weight without trying: No How much weight loss: Not applicable Eating poorly because of decreased appetite: No Nutrition screen score: 0 Nutrition Risks: No Nutritional Risk Poor oral hygiene: No service: No Meds Allergies Allergy/AdvReac Type Severity Reaction Status Date / Time No Known Allergies Allergy Verified 12/25/23 13:36 Active Medications: Current Medications Acetaminophen (Acetaminophen 325 Mg Tablet) 650 mg PO Q6H PRN PRN Reason: Pain, Mild (Pain Scale 1-3), fever or headache Last Admin: 12/27/23 07:40 Dose: 650 mg Albuterol Sulfate (Albuterol Sulfate 90 Mcg 8 Gm Inhaler) 2 puff INHALE RQ6H PRN PRN Reason: Shortness of Breath/Wheezing Calcium Carbonate (Calcium Carbonate 750 Mg Tab.Chew) 750 mg PO Q4H PRN PRN Reason: Heartburn Piperacillin Sod/Tazobactam (Sod 4.5 gm/ Sodium Chloride) 100 mls @ 200 mls/hr IV Q6H [facility] Last Infusion: 12/27/23 06:11 Dose: Infused Magnesium Hydroxide (Milk Of Magnesia 30 Ml Oral.Susp) 30 ml PO DAILY PRN PRN Reason: Constipation Melatonin (Melatonin 3 Mg Tablet) 6 mg PO BEDTIME PRN PRN Reason: Insomnia Morphine Sulfate (Morphine Sulfate 2 Mg/Ml Cartridge) 2 mg IVPUSH Q6H PRN; Protocol PRN Reason: Pain, Severe (Pain Scale 7-10) Sodium Chloride (0.9 % Sodium Chloride Flush 3 Ml Syringe) [address] [facility] Last Admin: 12/27/23 07:37 Dose: 3 ml Home Medications ?Medication ?Instructions ?Recorded ?Confirmed ?Last Taken ?Type omeprazole 20 mg tablet,delayed 20 mg PO DAILY@0630 12/08/23 12/26/23 12/08/23 History release Physical Exam Vital Signs: Vital Signs: Last Vital Signs Temp 98 F 12/27/23 06:55 Pulse 72 12/27/23 06:55 Resp 16 12/27/23 06:55 BP 110/64 12/27/23 06:55 Pulse Ox 95 12/27/23 06:55 O2 Del Method Room Air 12/26/23 23:33 BMI result Body Mass Index 35.5 Const: General: healthy appearing, no acute distress and well developed Orientation/consciousness: patient oriented x3 HEENT: Head: Yes normocephalic and Yes atraumatic Eyes: Conjunctivae: conjunctivae normal Neck: Neck: Yes normal visual inspection Chest: Chest palpation & inspection: normal inspection of the chest Resp: Effort & Inspection: normal respiratory effort Cardio: Rate: regular rate GI: Inspection: Yes normal to inspection Palpation (GI): Soft to palpation Neuro: General: patient oriented x3 Extrem: General: No pedal edema Psych: Appearance: grossly normal Affect: normal affect Results Labs 12/25/23 14:28 12/25/23 14:28 Labs: Urine 12/25/23 Range/Units 17:00 Urine Color Dark Yellow Urine Appearance Cloudy Urine pH 5.5 (5.0-9.0) Ur Specific [place] >= 1.030 H (1.005-1.025) Urine Protein 100 (2+) H (Neg-Trace) mg/dL Urine Glucose (UA) Negative (Negative) mg/dL All other labs normal. Imaging Abdomen CT scan report/results: report reviewed and image reviewed Additional studies: Date of Service: 12/25/23 CT ABDOMEN AND PELVIS WITH CONTRAST CLINICAL INFORMATION: Right flank pain. Recent renal abscess. COMPARISON: The scan of the abdomen and pelvis dated 12/08/2023 and 08/24/2022. TECHNIQUE: Multidetector CT volumetric acquisition of the abdomen and pelvis was performed after the administration of 85 mL of intravenous Omnipaque 350. The data set was reformatted in the sagittal and coronal planes and reviewed on an independent workstation. This CT examination was performed using dose optimization techniques as appropriate, variously including the following: *Automated exposure control *Adjustment of mA and/or kV according to patient size (this includes techniques or standardized protocols for targeted exams where dose is matched to indication/reason for exam; i.e. extremities or head) *Use of iterative reconstruction technique DLP: 943 mGy-cm. FINDINGS: LOWER CHEST: Scattered linear ectasis in the lung bases bilaterally. Small retrocardiac hiatal hernia, containing fat and small portion of the stomach. LIVER, GALLBLADDER, BILIARY TREE: Liver normal size and attenuation. No focal cystic or solid mass or intra-or extrahepatic ductal dilatation. Hepatic and portal veins patent. Gallbladder partially distended and within normal limits. PANCREAS: Diffusely atrophic. No ductal dilatation, mass, or surrounding stranding. SPLEEN: Enlarged, measuring 13.5 cm longitudinally.. Splenic vein patent. ADRENAL GLANDS AND KIDNEYS: Adrenal glands normal. There is a 1.4 x 1 cm mid left renal cyst, unchanged from prior exams and warranting no specific imaging follow-up. Left kidney otherwise unremarkable. The right kidney is asymmetrically mildly enlarged and edematous. There is a large 9.5 x 4.6 cm subcapsular collection seen along the posterior lateral aspect of the mid and lower right kidney with slightly thickened tello and surrounding fat stranding and edema, previously measuring 9.8 x 3.3 cm, suspicious for complex collection, such as an abscess. There is a subtle extension of this collection also along the anterior margin of the right kidney. Small cyst is again noted medially within the lower pole of the right kidney. There is adjacent thickening of Gerota s fascia and perinephric fat stranding and edema noted. URETERS AND BLADDER: Ureters decompressed and within normal limits. Bladder partially distended and within normal limits. PELVIC ORGANS: Unremarkable. GASTROINTESTINAL TRACT: Scattered colonic diverticula are seen with no evidence of acute diverticulitis. Small and large bowel loops decompressed. Appendix in right lower quadrant normal. LYMPHOVASCULAR STRUCTURES: Abdominal aorta normal in caliber. No periaortic collections. No abdominal or pelvic adenopathy or free fluid collection. BONES: Unremarkable. IMPRESSION: * Edematous and mildly enlarged right kidney is seen with prominent surrounding fat stranding and edema, consistent with pyelonephritis. There is no associated large complex subcapsular fluid collection, largest along the posterior lateral aspect of the mid and lower pole of the right kidney with surrounding fat stranding and edema. Findings are suspicious for an abscess. * No evidence of nephrolithiasis or obstructive uropathy. * Splenomegaly. * Colonic diverticulosis. * Small retrocardiac hiatal hernia. Assessment and Plan (1) Kidney abscess: Status: Acute (2) Pyelonephritis: Status: Acute Plan Will discuss with IR to evaluate for drainage Procedures Date of Service Date of Service: 12/27/23
--- NOTE | 2023-12-27 14:36 | PM.PROC ---
Brief Operative Note Date of procedure: 12/27/23 Pre-op diagnosis: Right renal subcapsular abscess Post-op diagnosis: same Procedure: CT drainage of right perinephric/subcapsular abscess 10 fr drain placed. 80 cc turbid, dark non-clotting blood tinged fluid aspirated and sent for culture. No immediate complications. Condition: stable Disposition: floor
--- NOTE | 2023-12-27 15:43 | HO.PM.IMPN ---
Subjective Subjective Date of Service: 12/27/23 Interval History: Being followed for right flank pain. NPO for IR drainage of large complex subcapsular fluid collection right kidney, denies fever, no chills, no urinary symptoms of urgency, no frequency tolerating diet. Review of Systems All other system reviewed and are negative. Physical Exam Vital Signs: Vital Signs: Last Vital Signs Temp 98 F 12/27/23 06:55 Pulse 72 12/27/23 06:55 Resp 16 12/27/23 06:55 BP 110/64 12/27/23 06:55 Pulse Ox 95 12/27/23 06:55 O2 Del Method Room Air 12/26/23 23:33 BMI result Body Mass Index 35.5 Const: Other: General sitting comfortably in no acute distress. Neck no JVD. CVS regular rate rhythm, Respiratory lungs clear to auscultation, no respiratory distress, no wheeze, no rhonchi. Gastrointestinal abdomen soft, non tender, bowel sounds audible, no guarding , no rigidity. Extremities no edema. No CVA tenderness, mild discomfort right flank Neuro non focal Skin no rash Appropriate affect Objective Data Active Medications Acetaminophen (Acetaminophen 325 Mg Tablet) 650 mg PO Q6H PRN PRN Reason: Pain, Mild (Pain Scale 1-3), fever or headache Last Admin: 12/27/23 15:29 Dose: 650 mg Documented By: JIMBO Albuterol Sulfate (Albuterol Sulfate 90 Mcg 8 Gm Inhaler) 2 puff INHALE RQ6H PRN PRN Reason: Shortness of Breath/Wheezing Calcium Carbonate (Calcium Carbonate 750 Mg Tab.Chew) 750 mg PO Q4H PRN PRN Reason: Heartburn Piperacillin Sod/Tazobactam (Sod 4.5 gm/ Sodium Chloride) 100 mls @ 200 mls/hr IV Q6H [facility] Last Infusion: 12/27/23 13:11 Dose: Infused Documented By: COTEMA Magnesium Hydroxide (Milk Of Magnesia 30 Ml Oral.Susp) 30 ml PO DAILY PRN PRN Reason: Constipation Melatonin (Melatonin 3 Mg Tablet) 6 mg PO BEDTIME PRN PRN Reason: Insomnia Morphine Sulfate (Morphine Sulfate 2 Mg/Ml Cartridge) 2 mg IVPUSH Q6H PRN; Protocol PRN Reason: Pain, Severe (Pain Scale 7-10) Sodium Chloride (0.9 % Sodium Chloride Flush 3 Ml Syringe) 3 ml IVFLUSH QSHIFT [facility] Last Admin: 12/27/23 14:50 Dose: Not Given Documented By: JIMBO Non-Admin Reason: Off Unit: Surgery Labs 12/25/23 14:28 12/25/23 14:28 Microbiology Microbiology Results: Microbiology 12/25/23 23:27 Blood Culture - Preliminary Blood - Venous No growth after 24 hours. 12/25/23 23:23 Blood Culture - Preliminary Blood - Venous No growth after 24 hours. Assessment and Plan (1) Pyelonephritis: Status: Acute (2) Acute flank pain: Status: Acute Plan 48/m with PMH significant for?mild intermittent asthma, GERD, and recurrent UTIs who has not seen a PCP in over 30 years recently discharged from [facility] on 12/12 with a diagnosis of acute pyelonephritis finish 2 weeks' course of Levaquin during that admission noted to have right perinephric stranding and subcapsular fluid collection question of hematoma versus abscess, since fluid collection was improving on repeat abdominal ultrasound no intervention was done and patient was recommended outpatient urology follow-up however patient returned back due to recurrent right flank intermittent pain and nausea. Right flank pain question recurrent pyelonephritis with associated large complex subcapsular fluid collection suspicious for an abscess versus hematoma -no fevers, normal urinalysis, no leukocytosis, blood cultures x2 no growth times 24 hours, good pain control with Tylenol -IV Zosyn started on 12/25 -blood cultures negative times 24 hours -underwent drainage by IR today report pending -follow fluid Gram stain culture sensitivity -being followed by Urology. GERD -Continue PPI Class 2 obesity recommend low-calorie diet Mild intermittent asthma, no exacerbation -Inhalers PRN Full Code DVT Prophylaxis: Pneumatic compression, Patient will require continued inpatient hospitalization for management of right flank pain/recurrent pyelonephritis requiring IV antibiotic and expert consultation. Quality Stroke Does the patient have a stroke diagnosis?: No VTE Prior VTE?: No VTE Risk Level:: Medical - moderate - high VTE Device Contraindication: Treatment Not Tolerated VTE Drug Contraindication: N/A - Med Ordered
[2023-12-27 15:44] VITALS: BP 125/68; PULSE 90; RESP 20; TEMP 36.4; O2SAT 97
--- NOTE | 2023-12-27 16:32 | MHC.CM.PN ---
EMR REVIEWED, PT W/R KIDNEY ABSCESS, PT TO IR FOR DRAINAGE OF R KIDNEY, PT NOT YET MEDICALLY CLEARED FOR DC, CM WILL CONT TO FOLLOW DC NEEDS.
[2023-12-27 19:17] VITALS: BP 129/76; PULSE 83; RESP 20; TEMP 36.6; O2SAT 93
[2023-12-27] MEDS: Morphine Sulfate 2 MG/ML CARTRIDGE IVPUSH (20:53)
[2023-12-27] MEDS: Melatonin 3 MG TABLET 6 MG PO (21:49)
[2023-12-27 23:57] VITALS: BP 118/73; PULSE 68; RESP 16; TEMP 36.8; O2SAT 95
[2023-12-28] MEDS: Piperacillin Sodium/Tazobactam 4.5 GM in 0.9 % Sodium Chloride 100 ML IV ×3 (05:49→18:05)
[2023-12-28 06:49] VITALS: BP 123/80; PULSE 77; RESP 16; TEMP 36.6; O2SAT 96
[2023-12-28 08:40] LABS: Hematocrit 37.3 % (42.0-52.0); Hemoglobin 12.5 g/dl (14.0-18.0); Mean Corpuscular HGB Conc 33.5 g/dl (31.0-36.0); Mean Corpuscular Hemoglobin 28.1 pg (27.0-33.0); Mean Corpuscular Volume 83.8 fL (80.0-98.0); Mean Platelet Volume 9.4 fL (9.4-12.4); Platelet Count 315 X10*3/uL (160-400); Red Blood Count 4.45 X10*6/uL (4.60-5.80); Red Cell Distribution Width 12.9 % (11.0-16.0); White Blood Count 9.7 X10*3/uL (4.8-10.8)
[2023-12-28 08:55] LABS: Anion Gap 12 (12-20); Blood Urea Nitrogen 11 mg/dL (9-16); C Reactive Protein 11.09 mg/dL (< or = 0.50); Calcium 9.9 mg/dL (8.4-10.2); Carbon Dioxide 23 mmol/L (22-29); Chloride 105 mmol/L (96-108); Creatinine Clr Calc Pharmacy 151.3; Estimated Glomerular Filt Rate > 60; Glucose Random 109 mg/dL (60-115); Potassium 3.9 mmol/L (3.3-5.1); Sodium 136 mmol/L (135-145)
[2023-12-28] MEDS: Morphine Sulfate 2 MG/ML CARTRIDGE IVPUSH (10:24)
[2023-12-28 11:27] LABS: Estimated Average Glucose 114 mg/dL; Hemoglobin A1c % 5.6 % (<6.0)
--- NOTE | 2023-12-28 12:01 | P.PNUR_ITS ---
Subjective Subjective Date of Service: 12/28/23 Interval history: renal collection/abscess S/P IR drain Physical Exam 2 Vital Signs: Vital Signs: Last Vital Signs Temp 98 F 12/28/23 06:49 Pulse 77 12/28/23 06:49 Resp 16 12/28/23 06:49 BP 123/80 12/28/23 06:49 Pulse Ox 96 12/28/23 06:49 O2 Del Method Room Air 12/28/23 06:49 BMI result Body Mass Index 35.5 : Other: Right flank drain- serosanguinous drainage, dressing clean dry Urology Results Labs 12/28/23 08:30 12/28/23 08:30 Labs: Laboratory Results - last 24 hr 12/28/23 08:30 WBC 9.7 RBC 4.45 L Hgb 12.5 L Hct 37.3 L MCV 83.8 MCH 28.1 MCHC 33.5 RDW 12.9 Plt Count 315 MPV 9.4 Absolute Nucleated RBC 0.000 Nucleated RBC % (auto) 0.0 Sodium 136 Potassium 3.9 Chloride 105 Carbon Dioxide 23 Anion Gap 12 BUN 11 Creatinine 0.84 Estim Creat Clear Calc 151.3 Estimated GFR > 60 Random Glucose 109 Estimat Average Glucose 114 Hemoglobin A1c % 5.6 Calcium 9.9 C-Reactive Protein 11.09 H Progress Note: A&P Assessment and plan (1) Pyelonephritis: Status: Acute (2) Hematoma of kidney: Status: Acute (3) Kidney abscess: Status: Acute Plan Serosanguinous drainous, IR c/s pending Cont IV abx Time Spent With Patient Time: Total time managing care of this patient today ____ minutes. Progress Note: Quality Stroke Does the patient have a stroke diagnosis?: No
--- NOTE | 2023-12-28 12:59 | P.PNIM_ITS ---
Subjective Subjective Date of Service: 12/28/23 Interval History: c/o R flank pain though improved no fever Review of Systems Review of Systems: Yes all other systems are reviewed and are negative Physical Exam 2 Vital Signs: Vital Signs: Last Vital Signs Temp 98 F 12/28/23 06:49 Pulse 77 12/28/23 06:49 Resp 16 12/28/23 06:49 BP 123/80 12/28/23 06:49 Pulse Ox 96 12/28/23 06:49 O2 Del Method Room Air 12/28/23 06:49 BMI result Body Mass Index 35.5 Gen: in no acute distress HEENT: sclera anicteric, moist mucus membranes Neck: supple Lungs: clear to auscultation bilaterally Heart: regular rate and rhythm, no murmurs Abd: soft, non-tender, non-distended : R CVA tenderness, JIMMY with scant serosanguinous drainage Ext: no edema Skin: warm/well-perfused Neuro: alert and oriented x3, no focal findings Psych: appropriate affect Objective Data Active Medications Acetaminophen (Acetaminophen 325 Mg Tablet) 650 mg PO Q6H PRN PRN Reason: Pain, Mild (Pain Scale 1-3), fever or headache Last Admin: 12/27/23 15:29 Dose: 650 mg Documented By: JIMBO Albuterol Sulfate (Albuterol Sulfate 90 Mcg 8 Gm Inhaler) 2 puff INHALE RQ6H PRN PRN Reason: Shortness of Breath/Wheezing Calcium Carbonate (Calcium Carbonate 750 Mg Tab.Chew) 750 mg PO Q4H PRN PRN Reason: Heartburn Piperacillin Sod/Tazobactam (Sod 4.5 gm/ Sodium Chloride) 100 mls @ 200 mls/hr IV Q6H [facility] Last Infusion: 12/28/23 12:59 Dose: Infused Documented By: ANN-MARIE Magnesium Hydroxide (Milk Of Magnesia 30 Ml Oral.Susp) 30 ml PO DAILY PRN PRN Reason: Constipation Melatonin (Melatonin 3 Mg Tablet) 6 mg PO BEDTIME PRN PRN Reason: Insomnia Last Admin: 12/27/23 21:49 Dose: 6 mg Documented By: JIMBO Morphine Sulfate (Morphine Sulfate 2 Mg/Ml Cartridge) 2 mg IVPUSH Q6H PRN; Protocol PRN Reason: Pain, Severe (Pain Scale 7-10) Last Admin: 12/28/23 10:24 Dose: 2 mg Documented By: ANN-MARIE Ondansetron HCl (Ondansetron Hcl 4 Mg/2 Ml Vial) 4 mg IVPUSH Q6H PRN PRN Reason: Nausea and Vomiting Sodium Chloride (0.9 % Sodium Chloride Flush 3 Ml Syringe) 3 ml IVFLUSH QSHIFT [facility] Last Admin: 12/28/23 08:59 Dose: Not Given Documented By: ANN-MARIE Non-Admin Reason: Previously Administered Labs 12/28/23 08:30 12/28/23 08:30 Labs: Laboratory Results - last 24 hr 12/28/23 08:30 MCV 83.8 MCH 28.1 MCHC 33.5 RDW 12.9 Plt Count 315 MPV 9.4 Absolute Nucleated RBC 0.000 Nucleated RBC % (auto) 0.0 Anion Gap 12 Estim Creat Clear Calc 151.3 Estimated GFR > 60 Random Glucose 109 Estimat Average Glucose 114 Hemoglobin A1c % 5.6 Calcium 9.9 C-Reactive Protein 11.09 H Microbiology Microbiology Results: Microbiology 12/27/23 14:10 Gram Stain - Final Kidney Right Routine Culture - Preliminary No growth to date. Anaerobic Culture - Preliminary No growth to date. 12/25/23 23:27 Blood Culture - Preliminary Blood - Venous No growth after 48 hours. 12/25/23 23:23 Blood Culture - Preliminary Blood - Venous No growth after 48 hours. Assessment and Plan (1) Pyelonephritis: Status: Acute (2) Acute flank pain: Status: Acute Plan d3 48yo M with mild intermittent asthma, GERD, recurrent UTIs [place] [facility], discharged 12/13/23 and completed 2 wk of levofloxacin noted then to have R perinephric stranding + subcapsular fluid collection with question of hematoma vs abscess since fluid collection improved on repeat US, no drainage was done; outpt Urology f/u was recommended returned due to recurrent R flank pain and nausea renal abscess vs hematoma - piperacillin-tazobactam 12/25- - 12/27/[address]-guided drainage: 80 cc turbid, dark non-clotting blood tinged fluid aspirated and sent for culture which is pending; BCx negative. JIMMY drain in place - Urology following and will need outpt f/u GERD - PPI GERD -Continue PPI mild intermittent asthma without acute exac - prn albuterol VTE ppx - SCDs dispo - eventual home In my clinical judgment, the patient requires continued inpatient hospitalization for the following reasons: IV ABX, surgical drainage Total time managing care of this patient today: 35 minutes. Quality Stroke Does the patient have a stroke diagnosis?: No VTE Prior VTE?: No VTE Risk Level:: Medical - moderate - high VTE Device Contraindication: Treatment Not Tolerated VTE Drug Contraindication: N/A - Med Ordered
[2023-12-28 16:00] VITALS: BP 134/79; PULSE 85; RESP 20; TEMP 37; O2SAT 96
[2023-12-28] MEDS: oxyCODONE HCl Immed Release 5 MG TABLET PO ×2 (16:39→22:26)
[2023-12-28] MEDS: 0.9 % Sodium Chloride Flush 3 ML SYRINGE IVFLUSH (16:40)
[2023-12-28] MEDS: Melatonin 3 MG TABLET 6 MG PO (22:26)
[2023-12-28 23:51] VITALS: BP 139/75; PULSE 86; RESP 16; TEMP 36.7; O2SAT 94
[2023-12-29] MEDS: Acetaminophen 325 MG TABLET 650 MG PO (00:05)
[2023-12-29] MEDS: Piperacillin Sodium/Tazobactam 4.5 GM in 0.9 % Sodium Chloride 100 ML IV ×4 (00:06→17:31)
[2023-12-29 07:18] VITALS: BP 111/58; PULSE 81; RESP 18; TEMP 36.9; O2SAT 95
[2023-12-29] MEDS: Albuterol Sulfate 90 MCG 8 GM INHALER 2 PUFF INHALE ×2 (10:48→19:36)
--- NOTE | 2023-12-29 11:29 | P.PNIM_ITS ---
Subjective Subjective Date of Service: 12/29/23 Interval History: R flank pain improved no fever Review of Systems Review of Systems: Yes all other systems are reviewed and are negative Physical Exam 2 Vital Signs: Vital Signs: Last Vital Signs Temp 98.4 F 12/29/23 07:18 Pulse 81 12/29/23 07:18 Resp 18 12/29/23 07:18 BP 111/58 L 12/29/23 07:18 Pulse Ox 95 12/29/23 07:18 O2 Del Method Room Air 12/29/23 07:18 BMI result Body Mass Index 35.5 Gen: in no acute distress HEENT: sclera anicteric, moist mucus membranes Neck: supple Lungs: clear to auscultation bilaterally Heart: regular rate and rhythm, no murmurs Abd: soft, non-tender, non-distended : R CVA tenderness, JIMMY with scant serosanguinous drainage Ext: no edema Skin: warm/well-perfused Neuro: alert and oriented x3, no focal findings Psych: appropriate affect Objective Data Active Medications Acetaminophen (Acetaminophen 325 Mg Tablet) 650 mg PO Q6H PRN PRN Reason: Pain, Mild (Pain Scale 1-3), fever or headache Last Admin: 12/29/23 00:05 Dose: 650 mg Documented By: JACK Albuterol Sulfate (Albuterol Sulfate 90 Mcg 8 Gm Inhaler) 2 puff INHALE RQ6H PRN PRN Reason: Shortness of Breath/Wheezing Last Admin: 12/29/23 10:48 Dose: 2 puff Documented By: ANN-MARIE Calcium Carbonate (Calcium Carbonate 750 Mg Tab.Chew) 750 mg PO Q4H PRN PRN Reason: Heartburn Piperacillin Sod/Tazobactam (Sod 4.5 gm/ Sodium Chloride) 100 mls @ 200 mls/hr IV Q6H [facility] Last Infusion: 12/29/23 06:19 Dose: Infused Documented By: JACK Magnesium Hydroxide (Milk Of Magnesia 30 Ml Oral.Susp) 30 ml PO DAILY PRN PRN Reason: Constipation Melatonin (Melatonin 3 Mg Tablet) 6 mg PO BEDTIME PRN PRN Reason: Insomnia Last Admin: 12/28/23 22:26 Dose: 6 mg Documented By: JACK Morphine Sulfate (Morphine Sulfate 2 Mg/Ml Cartridge) 2 mg IVPUSH Q6H PRN; Protocol PRN Reason: Pain, Severe (Pain Scale 7-10) Last Admin: 12/28/23 10:24 Dose: 2 mg Documented By: ANN-MARIE Ondansetron HCl (Ondansetron Hcl 4 Mg/2 Ml Vial) 4 mg IVPUSH Q6H PRN PRN Reason: Nausea and Vomiting Oxycodone HCl (Oxycodone Hcl Immed Release 5 Mg Tablet) 5 mg PO Q4H PRN PRN Reason: moderate pain Last Admin: 12/28/23 22:26 Dose: 5 mg Documented By: JACK Sodium Chloride (0.9 % Sodium Chloride Flush 3 Ml Syringe) [facility] Last Admin: 12/29/23 09:00 Dose: Not Given Documented By: ANN-MARIE Non-Admin Reason: Previously Administered Labs 12/28/23 08:30 12/28/23 08:30 Microbiology Microbiology Results: Microbiology 12/27/23 14:10 Gram Stain - Final Kidney Right Routine Culture - Preliminary No growth to date. Anaerobic Culture - Preliminary No growth to date. Assessment and Plan (1) Pyelonephritis: Status: Acute (2) Acute flank pain: Status: Acute Plan d4 48yo M with mild intermittent asthma, GERD, recurrent UTIs [place] [facility] [place], discharged 12/13/23 and completed 2 wk of levofloxacin noted then to have R perinephric stranding + subcapsular fluid collection with question of hematoma vs abscess since fluid collection improved on repeat US, no drainage was done; outpt Urology f/u was recommended returned due to recurrent R flank pain and nausea renal abscess vs hematoma - piperacillin-tazobactam 12/25- - 12/27/[address]-guided drainage: 80 cc turbid, dark non-clotting blood tinged fluid aspirated and sent for culture which is pending; BCx negative. JIMMY drain in place - Urology following and will need outpt f/u; discuss criteria to remove JIMMY drain GERD - continue PPI mild intermittent asthma without acute exac - prn albuterol VTE ppx - SCDs dispo - eventual home In my clinical judgment, the patient requires continued inpatient hospitalization for the following reasons: IV ABX, surgical drainage Total time managing care of this patient today: 35 minutes. Quality Stroke Does the patient have a stroke diagnosis?: No VTE Prior VTE?: No VTE Risk Level:: Medical - moderate - high VTE Device Contraindication: Treatment Not Tolerated VTE Drug Contraindication: N/A - Med Ordered
[2023-12-29 12:50] VITALS: BP 121/78; PULSE 104; RESP 18; TEMP 37.9; O2SAT 96
--- NOTE | 2023-12-29 13:16 | MHC.CM.PN ---
EMR REVIEWED AND PER MD ROUNDS, PT IS NOT YET MEDICALLY CLEARED FOR DC (AWAITING CULTURES, J/P DRAIN) POSSIBLE DC HOME TOMORROW. CM WILL CONTINUE TO FOLLOW FOR ANY CHANGE TO DC PLAN/NEEDS.
[2023-12-29 15:02] LABS: Influenza A PCR NEGATIVE (Negative); Influenza B PCR NEGATIVE (Negative); Resp Syncy Virus RNA Qual PCR NEGATIVE (Negative); SARS COV2 PCR INHOUSE POSITIVE (Negative)
[2023-12-29 15:09] VITALS: BP 132/79; PULSE 91; RESP 18; TEMP 37.7; O2SAT 96
[2023-12-29] MEDS: 0.9 % Sodium Chloride Flush 3 ML SYRINGE IVFLUSH ×2 (17:31→21:07)
[2023-12-29 18:08] VITALS: BP 107/51; PULSE 155
[2023-12-29] MEDS: Melatonin 3 MG TABLET 6 MG PO (21:07)
[2023-12-29 23:37] VITALS: BP 120/70; PULSE 85; RESP 20; TEMP 37.9; O2SAT 95
[2023-12-30] MEDS: Piperacillin Sodium/Tazobactam 4.5 GM in 0.9 % Sodium Chloride 100 ML IV ×3 (00:15→14:07)
[2023-12-30] MEDS: Acetaminophen 325 MG TABLET 650 MG PO ×2 (00:17→08:51)
[2023-12-30] MEDS: guaiFENesin LA 600 MG TAB.ER.12H PO ×2 (00:17→08:43)
[2023-12-30 07:16] VITALS: BP 120/78; PULSE 68; RESP 18; TEMP 36.7; O2SAT 95
[2023-12-30] MEDS: 0.9 % Sodium Chloride Flush 3 ML SYRINGE IVFLUSH ×2 (08:43→14:49)
--- NOTE | 2023-12-30 10:34 | PM.DS ---
DS: Providers Provider Date of Service: 12/30/23 Date of admission: 12/26/23 00:40 Date of discharge: 12/30/23 Primary care physician: Bruce Physician Consults: 12/26/23 00:43 Consult to Urology Routine Consulting Provider: [facility] Urology Services Reason for consultation: right kidney abscess DS: Diagnosis Discharge Diagnosis (1) Pyelonephritis: Status: Acute (2) Acute flank pain: Status: Acute (3) Hematoma of kidney: Status: Acute (4) Kidney abscess: Status: Acute DS: Summary Hospital Course Hospital Course: From the history and physical by the admitting hospitalist, Mk Roca MD, 12/25/23: This 48-year-old male with a history of recurrent UTIs and recent hospitalization from 12/07 to 12/12 for pyelonephritis complicated by perinephric stranding and a subcapsular fluid collection (suspicious for hematoma or abscess). Urology (Dr. Brar) advised 2 weeks of Abx (levaquin) which he just finished. He is now presenting again with right flank pain. His recent CT scan shows signs of worsening or unresolved infection, with a large complex subcapsular fluid collection and surrounding edema, suggestive of an abscess. Despite clean UA and absence of leukocytosis, his clinical presentation and imaging are concerning for a complicated renal abscess and has been initiated on Zosyn and may ultimately intervention such as IR guided drainage 48yo M with mild intermittent asthma, GERD, and recurrent UTIs with a recent admission to [facility] [place] for acute pyelonephritis, discharged 12/13/23 and completed 2 wk of levofloxacin. He was noted then to have R perinephric stranding + subcapsular fluid collection with question of hematoma vs abscess. Since fluid collection improved on repeat US, no drainage was done; outpt Urology f/u was recommended. However, he returned due to recurrent R flank pain and nausea and was admitted to the medical-surgical unit. He was treated with IV piperacillin-tazobactam and underwent IR CT-guided drainage on 12/27/23 with 80cc of turbid, dark non-clotting blood-tinged fluid aspirated and sent for culture, which was negative. BCx was negative. JIMMY drain was left in place until it had 10 cc/24h or drainage and US revealed completely resolution of the fluid collection. The JIMMY drain was pulled on the day of discharge. He was prescribed levofloxacin for 5 days. He also developed symptoms of Covid-19 and tested positive on 12/29/23 but was not hypoxic or dyspneic. Time Attestation Discharge Coordination Time (in mins): 45 Quality: Safe Use of Opioids Does Pt have an Active Cancer Diagnosis on the Problem List?: No Quality: Stroke Does the patient have a stroke diagnosis?: No Physical Exam Vital Signs: Vital Signs: Last Vital Signs Temp 98.1 F 12/30/23 07:16 Pulse 68 12/30/23 07:16 Resp 18 12/30/23 07:16 BP 120/78 12/30/23 07:16 Pulse Ox 95 12/30/23 07:16 O2 Del Method Room Air 12/30/23 07:16 BMI result Body Mass Index 35.5 Gen: in no acute distress HEENT: sclera anicteric, moist mucus membranes Neck: supple Lungs: clear to auscultation bilaterally Heart: regular rate and rhythm, no murmurs Abd: soft, non-tender, non-distended : mild L CVA tenderness Ext: no edema Skin: warm/well-perfused Neuro: alert and oriented x3, no focal findings Psych: appropriate affect DS: Data Data Completed and Pending Labs on day of discharge: Laboratory Results - last 24 hr 12/29/23 13:20 Influenza Type A (PCR) NEGATIVE Influenza Type B (PCR) NEGATIVE RSV RNA Qual (PCR) NEGATIVE SARS-CoV-2 RNA (RT-PCR) POSITIVE A Preliminary micro results at discharge 12/27/23 14:10 Anaerobic Culture - Preliminary Kidney Right No growth to date. 12/25/23 23:27 Blood Culture - Preliminary Blood - Venous No growth after 48 hours. 12/25/23 23:23 Blood Culture - Preliminary Blood - Venous No growth after 48 hours. Discharge Plan Discharge Anticipated Discharge Date/Time: 12/30/23 16:30 Patient Disposition: Home, Self-Care Discharge Diagnosis: pyelonephritis renal abscess/hematoma Covid-19 infection Referrals: Mariama Vo MD [Physician] - 1 Week Physician,None [Primary Care Provider] - 1 Week Discharge Medications: New albuterol sulfate [Ventolin HFA] 90 mcg/actuation Hfa Aerosol Inhaler 2 puff inhalation RQ6H PRN (Reason: Shortness Of Breath/Wheezing) Qty: 8.5 0RF levofloxacin 750 mg tablet 750 mg PO DAILY Qty: 5 0RF Continued omeprazole 20 mg Tablet,Delayed Release (Dr/Ec) 20 mg PO DAILY@0630 Discharge Orders: Discharge Order (Routine); Ordered 12/30/23 Ordered By: Rodger Mcmahon Diet: Advance to usual diet Activity on Discharge: As tolerated Stand Alone Forms: Patient Portal Discharge page Print Language: Azeri Care Plan Goals: resolution of renal abscess/hematoma Health Concerns: pyelonephritis renal abscess/hematoma Covid-19 infection Plan of Treatment: take antibiotics as prescribed use acetaminophen for pain follow up with Urology in 1 week isolation for Covid-19 as per CDC guidelines Please follow up with your primary care doctor within 1 week. Return to the hospital if you experience recurrent or worsening symptoms. Assessment: See Discharge Summary. Patient Instructions: Kidney Infection (GEN) Discharge Date/Time: 12/30/23 16:00
--- NOTE | 2023-12-30 13:18 | MHC.CM.PN ---
ANTIC PT WILL BE MEDICALLY CLEARED DC HOME SELF CARE, PT WILL SELF TRANSPORT HIS CAR IS [place] [facility] [place]
--- NOTE | 2023-12-30 15:21 | PM.EVENT ---
Event Note Date of Service: 12/30/23 Event Note: Minimal output from right perinephric drain. US today shows resolution of collection. Drain was removed. Mychal RUIZ Interventional Radiology Time Spent With Patient Time: Total time managing care of this patient today ____ minutes.
[2023-12-30 15:32] VITALS: BP 122/80; PULSE 77; RESP 18; TEMP 36.7; O2SAT 99
== END 2023-12-30 16:00 | disposition home or self-care (01) | DRG 463 ==
LOC: HO.ED 22:20 → HO.EDOVER 12-26 00:44 → HO.S3 12-26 00:56 → HO.IMC 12-29 16:18
PROVIDERS: Physician Assistant; Physician Assistant Medical; Student in an Organized Health Care Education/Training Program; Admitting Provider Internal Medicine; Emergency Provider Emergency Medicine; Visit Provider Family Medicine
DX: N15.1 Renal and perinephric abscess (principal); U07.1 COVID-19; J45.20 Mild intermittent asthma, uncomplicated; E66.8 Other obesity; K21.9 Gastro-esophageal reflux disease without esophagitis; Z68.35 Body mass index [BMI] 35.0-35.9, adult; N10 Acute pyelonephritis; Z87.440 Personal history of urinary (tract) infections; Z79.899 Other long term (current) drug therapy
CPT/HCPCS: 0241U; 36415; 49406; 74177; 76775; 80048; 80053; 81001; 83036; 83605; 83735; 85025; 85027; 86140; 87040; 87070; 87073; 87205; 96365; 99152; 99285; C1729; J2270; J2543; Q9967

== ENCOUNTER 2023-12-26 00:40 | Outpatient (BNV) | payer MEDICAID, SELFPAY | END 2023-12-27 13:24 | PROVIDERS: Admitting Provider Internal Medicine; Emergency Provider Emergency Medicine; Visit Provider Radiology Vascular & Interventional Radiology | DX: N15.1 Renal and perinephric abscess (principal) | CPT/HCPCS: 49406; 99152 ==

== ENCOUNTER → 2023-12-26 00:40 | Outpatient (BNV) | payer MEDICAID, SELFPAY | PROVIDERS: Admitting Provider Internal Medicine; Emergency Provider Emergency Medicine; Visit Provider Urology | DX: N12 Tubulo-interstitial nephritis, not specified as acute or chronic (principal); S37.019A Minor contusion of unspecified kidney, initial encounter; N15.1 Renal and perinephric abscess | CPT/HCPCS: 99222; 99232 ==

== ENCOUNTER 2024-01-18 07:33 | Day surgery (SDC) | payer MEDICAID, SELFPAY ==
[2023-12-13 14:46] VITALS: BMI 36.8
--- NOTE | 2023-12-14 09:31 | HO.ANESPROP2 ---
HPI - Anesthesia Eval Consult details Narrative: 48yo M for Colonoscopy, 01/04/24 [facility] Active Problems Active Problems: All Active Problems Hematoma of kidney (Acute) Kidney abscess (Acute) Acute UTI (Acute) Acute flank pain (Acute) Past Medical History Medical History (Updated 12/21/23 @ 00:01 by Sally Coleman) Renal abscess GERD (gastroesophageal reflux disease) History of asthma Family History Family history of problems with anesthesia: No Surgical History Surgical History [place] teeth extracted History of esophagogastroduodenoscopy (EGD) History of Problems with Anesthesia: No Social History Social History Household Members: None Housing: House Do you presently have visiting nurse or other home services: No Alcohol intake: current Alcohol intake frequency: holidays/special occasions only Alcohol type: hard liquor Patient Tobacco Use Status: Never used Tobacco service: No Meds Allergies Allergy/AdvReac Type Severity Reaction Status Date / Time No Known Allergies Allergy Verified 12/08/23 08:09 Home Medications ?Medication ?Instructions ?Recorded ?Confirmed ?Last Taken ?Type omeprazole 20 mg tablet,delayed 20 mg PO DAILY 12/08/23 12/13/23 12/08/23 History release Exam Height,Weight and Vital Signs: Height 6 ft 2 in Weight 129.954 kg Assessment and Plan Assessment Anesthesia Assessment: Chart Reviewed Final Anesthetic Review Family History of Problems with Anesthesia: No History of Problems with Anesthesia: No
--- NOTE | 2024-01-17 10:19 | P.CONAN_ITS ---
Documented by User: Ximena Brar NP 01/17/24 10:20 HPI - Anesthesia Eval Consult details Narrative: 48yo M for Colonoscopy [facility] Active Problems Active Problems: All Active Problems Pyelonephritis (Acute) Acute flank pain (Acute) Hematoma of kidney (Acute) Kidney abscess (Acute) Acute UTI (Acute) Acute flank pain (Acute) Past Medical History Medical History Hx of drainage of abscess Kidney abscess History of esophageal dilatation Erosive esophagitis HTN (hypertension) Renal abscess GERD (gastroesophageal reflux disease) History of asthma Family History Family history of problems with anesthesia: No Surgical History Surgical History [place] teeth extracted History of esophagogastroduodenoscopy (EGD) History of Problems with Anesthesia: No Social History Social History Household Members: None Housing: House Do you presently have visiting nurse or other home services: No Alcohol intake: current Alcohol intake frequency: holidays/special occasions only Alcohol type: hard liquor Patient Tobacco Use Status: Never used Tobacco Second Hand Smoke Exposure: No Have you been hit, kicked, punched, or otherwise hurt by someone within the past year? If so, by whom?: No Are you DNR?: No Advance Directives: No Advance Directives Information Provided: Yes Recently lost weight without trying: No Nutrition Risks: No Nutritional Risk service: No Meds Allergies Allergy/AdvReac Type Severity Reaction Status Date / Time No Known Allergies Allergy Verified 12/25/23 13:36 Home Medications ?Medication ?Instructions ?Recorded ?Confirmed ?Last Taken ?Type omeprazole 20 mg tablet,delayed 20 mg PO DAILY@0630 12/08/23 12/26/23 12/08/23 History release Exam Height,Weight and Vital Signs: Height 6 ft 2 in Weight 129.954 kg Assessment and Plan Assessment Anesthesia Assessment: Chart Reviewed Final Anesthetic Review Family History of Problems with Anesthesia: No History of Problems with Anesthesia: No Documented by User: Verna Mckenzie MD 01/18/24 11:40 PMFSH Past Medical History Medical History Hx of drainage of abscess Kidney abscess History of esophageal dilatation Erosive esophagitis HTN (hypertension) Renal abscess GERD (gastroesophageal reflux disease) History of asthma Surgical History Surgical History [place] teeth extracted History of esophagogastroduodenoscopy (EGD) Social History Social History Household Members: None Housing: House Do you presently have visiting nurse or other home services: No Alcohol intake: current Alcohol intake frequency: holidays/special occasions only Alcohol type: hard liquor Patient Tobacco Use Status: Never used Tobacco Second Hand Smoke Exposure: No Have you been hit, kicked, punched, or otherwise hurt by someone within the past year? If so, by whom?: No Are you DNR?: No Advance Directives: No Advance Directives Information Provided: Yes Recently lost weight without trying: No Nutrition Risks: No Nutritional Risk service: No Meds Allergies Allergy/AdvReac Type Severity Reaction Status Date / Time No Known Allergies Allergy Verified 12/25/23 13:36 Home Medications ?Medication ?Instructions ?Recorded ?Confirmed ?Last Taken ?Type omeprazole 20 mg tablet,delayed 20 mg PO DAILY@0630 12/08/23 12/26/23 12/08/23 History release Exam Airway Mallampati Class: II TM Dist: >3cm Neck ROM: Full Heart: rrr Lungs: cta Assessment and Plan Final Anesthetic Review ASA Class: II Final Preanesthetic Review: No Changes in Pt Med Stat, Meds/Allgs Chart Reviewed, Consent Obtained/Reviewed and Anes Risks/Benef Reviewed Patient Risk: Low Procedure Risk: Low Anesthetic Plan Anesthetic Plan: MAC: Disposition: Standard PACU
[2024-01-18 09:16] VITALS: BP 150/93; PULSE 65; RESP 18; TEMP 36.4; O2SAT 98; BMI 36.5
[2024-01-18] MEDS: Lactated Ringers 1,000 ML 100 ML IVCONT (09:41)
--- NOTE | 2024-01-18 10:41 | MHC.SHP ---
Pre-Procedural Eval Section A - 24 Hr Update-Section A only Date of Service: 01/18/24 Section B - Complete if H&P > 30 days Chief Complaint: screening Details of Present Illness: see H&P no changes Relevant Family History (Specify if Yes): No Relevant Social History: None Present Medications: see Short Stay Collaborative assessment Medical History: No relevant PMH History of Previous Operations: No relevant previous surgery Allergies: Allergies Allergy/AdvReac Type Severity Reaction Status Date / Time No Known Allergies Allergy Verified 12/25/23 13:36 Review of Systems Sugical H&P ROS: Negative: Constitution, Cardiovascular, Respiratory, Neurological, Psychiatric, Hem-Onc, Allergic/Immunologic, Gastrointestinal, Genitourinary, Musculoskeletal, Integumentary, Endocrine and Eyes/Ears/Nose/Throat Exam Surgical H&P Exam: Normal: HEENT, Normal: Heart, Normal: Lungs, Normal: Extremities, Normal: Abdomen, Normal: Skin and Normal: Neurological Plan Diagnosis/Plan: Unchanged I have reviewed the history and physical and performed a pertinent physical examination on my patient. No changes have occurred unless specified. Time Spent With Patient Time: Total time managing care of this patient today ____ minutes.
[2024-01-18 12:05] VITALS: BP 114/68; PULSE 71; RESP 16; TEMP 36.6; O2SAT 97
[2024-01-18 12:20] VITALS: BP 104/68; PULSE 61; RESP 17; TEMP 36.8; O2SAT 98
--- NOTE | 2024-01-18 12:21 | OP_ITS ---
DATE OF SERVICE: 01/18/2024 SURGEON: Amari Funk MD INDICATIONS: Colon cancer screening. PREOPERATIVE DIAGNOSIS: POSTOPERATIVE DIAGNOSIS: PROCEDURE PERFORMED: Colonoscopy to the terminal ileum with snare polypectomy. ESTIMATED BLOOD LOSS: COMPLICATIONS: ANESTHESIA: Monitored anesthesia care. ASSISTANTS: SPECIMENS: DESCRIPTION OF PROCEDURE: A history and physical were performed. The risks and benefits of the procedure were explained to the patient and informed consent was obtained. The patient was placed in the left lateral decubitus position. A digital rectal exam was performed and was found to be normal. The Olympus pediatric video colonoscope was introduced into the rectum and advanced to the cecum. The cecum was identified by transillumination, palpation, and identification of ileocecal valve. Examination was performed and the scope was removed. He tolerated the procedure well and was taken to the recovery room in stable condition. FINDINGS: The terminal ileum was examined and appeared normal. The visualized colonic mucosa was normal. The quality of the prep was good. A single polyp measuring less than 10 mm was identified and removed with a hot snare at 45 cm from the anal verge. No other polyps were identified. There was mild sigmoid diverticulosis. Retroflexed examination showed small internal hemorrhoids. IMPRESSION: Colon polyp. RECOMMENDATION: Follow up the biopsy results. MD EMBER Villafuerte/ANETAL / [id number]
== END 2024-01-18 13:25 | disposition home or self-care (01) ==
PROVIDERS: Visit Provider Internal Medicine Gastroenterology
PROC: 0DJD8ZZ Inspection of Lower Intestinal Tract, Via Natural or Artificial Opening Endoscopic (ICD-10-PCS; CPT 45378; principal; 2024-01-18 09:50)
DX: Z12.11 Encounter for screening for malignant neoplasm of colon (principal); K63.5 Polyp of colon; K57.30 Diverticulosis of large intestine without perforation or abscess without bleeding; K64.8 Other hemorrhoids; I10 Essential (primary) hypertension; K21.00 Gastro-esophageal reflux disease with esophagitis, without bleeding
CPT/HCPCS: 45385; 88305; J2704

== ENCOUNTER 2024-02-07 14:39 | Outpatient (AMB) | payer MEDICAID, SELFPAY ==
--- NOTE | 2024-02-07 14:44 | MHC.OFFVIS ---
Intake Visit Reasons: PVR follow up Intake Note: Patient is present for PVR F/U Urology Medication:NONE Antibiotic Allergy:NONE Blood Thinner:NONE TODAY'S PVR: 76ML'S Cleat Maker Required: No Allergies No Known Allergies Allergy (Verified 02/07/24 14:45) HPI Comments Details: 02/07/2024--Amos was initially seen by me in consultation as an inpatient on 12/27/2023. He is here in follow-up visit. Follow-up renal ultrasound was done on 12/30/2023 which noted resolution of collection. The patient denies pain at this time. Urinalysis microscopic hematuria present. Amos denies history of or current nicotine use. Discussed re-evaluating in 6 months we will check UA and consider other evaluation such as cystoscopy if microscopic hematuria persists. Also discussed PSA screening. Will send urine for cytology. Consult date: 12/27/23-Amos was recently admitted and treated with abx for pyelonephitis and renal hematoma. He present with persistent pain, completed course of levaquin. CTAP concerning for renal abscess. [facility] Medical History Hx of drainage of abscess Kidney abscess History of esophageal dilatation Erosive esophagitis HTN (hypertension) Renal abscess GERD (gastroesophageal reflux disease) History of asthma Surgical History [place] teeth extracted History of esophagogastroduodenoscopy (EGD) Social History Household Members: None Housing: House Do you presently have visiting nurse or other home services: No Alcohol intake: current Alcohol intake frequency: holidays/special occasions only Alcohol type: hard liquor Patient Tobacco Use Status: Never used Tobacco Second Hand Smoke Exposure: No service: No Review of Systems Const All systems reviewed & are unremarkable except as noted in HPI and below Reports no additional complaints Eyes Reports no additional complaints ENT Reports no additional complaints Card Reports no additional complaints Resp Reports no additional complaints GI Reports no additional complaints Reports as per HPI Musc Reports no additional complaints Skin/Breast Reports system reviewed and no additional complaints, except as documented Neuro Reports no additional complaints Psych Reports no additional complaints Endo Reports no additional complaints Donal/Lymph Reports no additional complaints Aller/Immun Reports no additional complaints Office Procedures Post Void Residual Post Residual Void Post Void Residual (PVR): 76 [id number] Void Residual by ultrasound Results AMB Urinalysis, Automated UA Leukoctes 0 Maryuri/uL Last Edit by ANDREW Oliver on 02/07/24 14:59 UA Nitrite Negative Last Edit by ANDREW Oliver on 02/07/24 14:59 UA Urobilinogen 0.2 mg/dL Last Edit by ANDREW Oliver on 02/07/24 14:59 UA Protein 15 mg/dL Last Edit by Ashley Braga CCM on 02/07/24 14:59 UA pH 6.0 Last Edit by ANDREW Oliver on 02/07/24 14:59 UA Blood 25 Vahid/uL Last Edit by ANDREW Oliver on 02/07/24 14:59 UA Specific [place] 1.020 Last Edit by ANDREW Oliver on 02/07/24 14:59 UA Ketone Negative Last Edit by ANDREW Oliver on 02/07/24 14:59 UA Bilirubin 0 mg/dL Last Edit by ANDREW Oliver on 02/07/24 14:59 UA Glucose 0 mg/dL Last Edit by ANDREW Oliver on 02/07/24 14:59 Results Reviewed Results Reviewed: Laboratory Last Values Urine pH (Auto) 6.0 02/07/24 14:59 Specific [place] (Auto) 1.020 02/07/24 14:59 Urine Protein (Auto) 15 mg/dL 02/07/24 14:59 Glucose (UA)(Auto) 0 mg/dL 02/07/24 14:59 Urine Ketones (Auto) Negative 02/07/24 14:59 Urine Blood (Auto) 25 Vahid/uL 02/07/24 14:59 Urine Nitrite (Auto) Negative 02/07/24 14:59 Urine Bilirubin (Auto) 0 mg/dL 02/07/24 14:59 Urine Urobilinogen (Auto) 0.2 mg/dL 02/07/24 14:59 Leukocyte Esterase (Auto) 0 Maryuri/uL 02/07/24 14:59 Date of Service: 12/30/23 US RETROPERITONEAL LIMITED, RIGHT (RENAL ONLY) CLINICAL INFORMATION: Follow-up right renal subcapsular collection status post drain 12/27/2023. COMPARISON: CT abdomen and pelvis 12/25/2023. TECHNIQUE: Ultrasound of the right kidney was performed. FINDINGS: The right kidney measures 11.4 x 6.3 x 6.1 cm. No hydronephrosis. No significant residual collection is appreciated by ultrasound with some limitation due to the rib cage. IMPRESSION: No significant residual collection appreciated by ultrasound with some limitation due to the rib cage. Assessment & Plan Assessment & Plan (1) Kidney abscess: Code(s): N15.1 - Renal and perinephric abscess Category: Medical (2) Hematoma of kidney: Code(s): S37.019A - Minor contusion of unspecified kidney, initial encounter Category: Medical (3) Screening PSA (prostate specific antigen): Code(s): Z12.5 - Encounter for screening for malignant neoplasm of prostate Category: Medical (4) Microscopic hematuria: Code(s): R31.29 - Other microscopic hematuria Category: Medical Plan Follow-up in 6 months, PSA prior urine for cytology Orders: Orders AMB Urinalysis Automated 02/07/24 Z13.9 - Encounter for screening, unspecified Urine Cytology 02/07/24 N39.0 - Urinary tract infection, site not specified Patient Instructions: The patient had an opportunity to ask questions regarding treatment plan. The patient expressed understanding and agreement with the above treatment plan. The patient is aware they should contact our office by phone for worsening of their current condition or the appearance of new symptoms. Compliance is encouraged with any medications and followup testing that is ordered. It is a privilege to be allowed the opportunity to participate in the urologic care of your patient. If you have any questions or concerns regarding treatment for the above conditions please do not hesitate to contact me. The office telephone contact is [phone]. This note is constructed in part using voice recognition software. While every effort has been made to ensure accuracy police captain precinct errors may have been included. Yours sincerely, Mariama Vo MD Coding Level of Care Code Est Pt Level 4 (62490) Diagnoses Kidney abscess N15.1 Hematoma of kidney S37.019A Screening PSA (prostate specific antigen) Z12.5 Microscopic hematuria R31.29 CPT Codes Post Residual Void - PVR CPT Code: 23719-Pdjj Void Residual by ultrasound ([id number])
== END 2024-02-07 15:23 | disposition home or self-care (01) ==
PROVIDERS: Visit Provider Urology
DX: N15.1 Renal and perinephric abscess (principal); S37.019A Minor contusion of unspecified kidney, initial encounter; Z12.5 Encounter for screening for malignant neoplasm of prostate; R31.29 Other microscopic hematuria
CPT/HCPCS: 99214

== ENCOUNTER 2024-02-07 14:39 | Outpatient (REF) | payer SELFPAY ==
[2024-02-07 16:58] LABS: Urine Cytology See Pathology rpt
== END 2024-02-07 14:40 | disposition home or self-care (01) ==
LOC: HO.LNP 14:39
PROVIDERS: Visit Provider Urology
DX: N39.0 Urinary tract infection, site not specified (principal); N15.1 Renal and perinephric abscess; S37.019A Minor contusion of unspecified kidney, initial encounter; Z12.5 Encounter for screening for malignant neoplasm of prostate; R31.29 Other microscopic hematuria
CPT/HCPCS: 51798; 81003; 88112; 99212

== ENCOUNTER 2024-08-01 10:51 | Outpatient (AMB) | payer MEDICAID, SELFPAY ==
--- NOTE | 2024-08-01 10:56 | MHC.OFFVIS ---
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 Denies irritative voiding symptoms discussed the importance of moderation and caffeine intake. He drinks 1 cup of coffee in the morning 3 cups of tea throughout the day. He states he has begun to feel some right flank discomfort with radiation towards the bladder. I will re-evaluate renal ultrasound. Urinalysis microscopic hematuria. Results: PSA-07/26/2024---0.43 ng/mL 02/07/2024--Amos was initially seen by me in consultation as an inpatient on 12/27/2023. He is here in follow-up visit. Follow-up renal ultrasound was done on 12/30/2023 which noted resolution of collection. The patient denies pain at this time. Urinalysis microscopic hematuria present. mAos denies history of or current nicotine use. Discussed re-evaluating in 6 months we will check UA and consider other evaluation such as cystoscopy if microscopic hematuria persists. Also discussed PSA screening. Will send urine for cytology. Consult date: 12/27/23-Amos was recently admitted and treated with abx for pyelonephitis and renal hematoma. He present with persistent pain, completed course of levaquin. CTAP concerning for renal abscess. COUNT INCLUDES [facility] Medical History Hx of drainage of abscess Kidney abscess History of esophageal dilatation Erosive esophagitis HTN (hypertension) Renal abscess GERD (gastroesophageal reflux disease) History of asthma Surgical History [place] teeth extracted History of esophagogastroduodenoscopy (EGD) Social History Household Members: None Housing: House Do you presently have visiting nurse or other home services: No Alcohol intake: current Alcohol intake frequency: holidays/special occasions only Alcohol type: hard liquor Patient Tobacco Use Status: Never used Tobacco Second Hand Smoke Exposure: No service: No Results AMB Urinalysis, Automated UA Leukoctes 0 Maryuri/uL Last Edit by Lyn Funes on 08/01/24 12:13 UA Nitrite Negative Last Edit by Lyn Funes on 08/01/24 12:13 UA Urobilinogen 0.2 mg/dL Last Edit by Lyn Funes on 08/01/24 12:13 UA Protein 15 mg/dL Last Edit by Lyn Funes on 08/01/24 12:13 UA pH 6.0 Last Edit by Lyn Funes on 08/01/24 12:13 UA Blood 25 Vahid/uL Last Edit by Lyn Funes on 08/01/24 12:13 UA Specific [place] 1.020 Last Edit by Lyn Funes on 08/01/24 12:13 UA Ketone Negative Last Edit by Lyn Funes on 08/01/24 12:13 UA Bilirubin 0 mg/dL Last Edit by Lyn Funes on 08/01/24 12:13 UA Glucose 0 mg/dL Last Edit by Lyn Funes on 08/01/24 12:13 Assessment & Plan Assessment & Plan (1) Hematoma of kidney: Code(s): S37.019A - Minor contusion of unspecified kidney, initial encounter Category: Medical (2) Microscopic hematuria: Code(s): R31.29 - Other microscopic hematuria Category: Medical Orders: Orders AMB Urinalysis Automated Today Z13.9 - Encounter for screening, unspecified US renal BI Today R31.29 - Other microscopic hematuria, S37.019A - Minor contusion of unspecified kidney, initial encounter Coding Diagnoses Hematoma of kidney S37.019A Microscopic hematuria R31.29
--- OUTSIDE RECORDS SUMMARY | 2024-08-01 13:12 | XMS_ITS | Patient Health Record ---
Author Organization [facility] Address [address] [place] [address] Care Team Providers Care Online Media Buyer Name Role Phone Amari Funk Jr Primary Care Provider Allergies Allergen (clinical drug ingredient) Drug/Non Drug Allergy documented on EMR Reaction Allergy Type Onset Date Status cats (uncoded) Unknown Allergy Activ e Results Component Value Reference Range Notes Pathology Reviewed date:01/27/2024 11:14:47 AM Interpretation: Performing Lab:[facility], [address] [place] [phone] Notes/Report: Name: Amos Cormier Age/Sex: 48/M : 1975 Unit#: [id number] Attend Dr: Amari Funk MD Re01/18/24 Status : [facility] Location: [facility] Disch: SPEC : [id number] RECD : 01/18/24 STATUS: MARYB[facility] [place] NUM: [id number] JESSICA: 01/18/241159 [facility] DR: Amari Funk MD ENTERED: 01/18/24 25 SP TYPE: Surgical OTHR DR: ORDERED: HE Stain/3, Gross Micro L4 Diagnosis Colon, at 45 cm, samir yp: Colonic mucosa with mild hyperplastic changes, and prominent submucosal adipose t issue compatible with lipoma. Clinical History Pre-Op Dx: Screening Post-Op Dx: Colon polyp Microscopic Description Microscopic sections reviewed. Material Received Polyp at 45 Gross Description Received in formalin labeled ?polyp at 45? is a polypoid portion of red-pink soft tissue measuring 0.9 x 0.8 x 0.4 cm which is bisected and submitted for microscopic examination, 2 pieces in cassette A. [facility] Signed (si gnature on file) Imelda [place] 01/19/24 1602 END OF REPORT Reason For Referral No Information Immunizations Vaccine Route Administration Date Status Comme nts Influenza Unknown 11/22/2023 Refused Social History Tobacco Use: Social History Observation Description Date Details (start date - stop date) Never Smoker NA - NA Tobacco Use/Smoking Question Answer Notes Patient is a nonsmoker Alcohol Screen Question Answer Notes Did you have a drink contain ing alcohol in the past year? Yes How often did you have a dri nk containing alcohol in the past year? 2 to 4 times a month (2 points) How many drinks did you have on a typical day when you were drinking in the past year? 1 or 2 drinks (0 point) How often did you have 6 or more drinks on one occasion in the past year? Never (0 point) Points 2 Interpretation Negative Problems Problem Type SNOMED Code ICD Code Onset Dates Problem Status W/U Status Risk Notes Problem 245984266 Colon cancer screening (Z12.11) Active confirmed Problem Dysphagia (64474285) Dysphagia (R13.10) Active confirmed Problem 73138652 Erosive esophagi tis (K22.10) Active confirmed Problem 779237270 Gastroesophageal reflux disease with esophagitis, unspecified whether hemorrhage (K21.00) Active confirmed Vital Signs Temperature 96.8 degrees Fahrenheit 11/22/2023 Blood pressure diastolic 00 mm Hg 11/22/2023 Height 6 ft 2 in in 11/22/2023 Blood pressure systolic 000 mm Hg 11/22/2023 Weight 286 lb 8 oz lbs 11/22/2023 BMI 36.78 kg/m2 11/22/2023 Encounters Encounter Location Date Provider Diagnosis [facility] Outpatient [address] [place] [phone] 01/18/2024 Amari Funk Jr Colon cancer screening Z12.11 and Colon polyps K63.5 [facility] [address] [place] [phone] 11/22/2023 Amari Funk Jr Colon cancer screening Z12.11 and Gastroesophageal reflux disease with esophagitis, unspecified whether hemorrhage K21.00 [facility] [address] [place] [phone] 01/03/2024 Amari Funk Jr [facility] [address] [place] [phone] 01/17/2024 Amari Funk Jr [facility] [address] [place] [phone] 01/27/2024 Amari Funk Jr [facility] [address] [place] [phone] 12/14/2023 Amari Funk Jr [facility] Outpatient [address] [place], [place] [phone] 12/14/2023 Amari Funk Jr Assessments Encounter Date Diagnosis (ICD Code) Assessment Notes Treatment Notes Treatment Clinical Notes Section Notes 01/18/2024 Colon cancer screening (ICD-10 - Z12.11) 01/18/2024 Colon polyps (ICD-10 - K63.5) 11/22/2023 Colon cancer screening (ICD-10 - Z12.11) Colonoscopy material was printed We discussed gastroesophageal reflux disease today. We discussed diet, lifestyle modifications, and weight management. We recommended omeprazole on a p.r.n. basis for reflux symptoms. He is due for colon cancer screening. This will be arranged. He understands risks and benefits and agrees to proceed. 11/22/2023 Gastroesophageal reflux disease with esophagitis, unspecified whether hemorrhage (ICD-10 - K21.00) We discussed gastroesophageal reflux disease today. We discussed diet, lifestyle modifications, and weight management. We recommended omeprazole on a p.r.n. basis for reflux symptoms. He is due for colon cancer screening. This will be arranged. He understands risks and benefits and agrees to proceed. Plan Of Treatment Future Test Test Name Order Date COLONOSCOPY 11/22/2023 Insurance Providers Payer Name Payer Address Payer Phone Subscriber Number Group Number Insured Name Patient Relationship to Insured Coverage Start Date Coverage End Date [employer] [address] [place] [phone] [id number] AMOS CORMIER Self - patient is the insured MEDICAID OF [facility] [address] [place] [phone] [id number] AMOS CORMIER Self - patient is the insured Medical (General) History Medical History History ICD Code Hypertension Erosive esophagitis, EGD 11/18 3, balloon dilation of Schatzki ring, biopsies negative for Goodwin's esophagus. Surgical History Surgery Date(Month/Year) endoscopy upper 2022
--- OUTSIDE RECORDS SUMMARY | 2024-08-01 13:12 | XMS_ITS ---
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, [place], [address] * true * Date:? Generated for Rudy chadwick/David/eTransmitting on:?08/01/2024 01:12 PM EDT
--- OUTSIDE RECORDS SUMMARY | 2024-08-01 13:12 | XMS_ITS ---
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, [place], [address] * true * Date:? Generated for Rudy chadwick/David/eTransmitting on:?08/01/2024 01:12 PM EDT
--- OUTSIDE RECORDS SUMMARY | 2024-08-01 13:13 | XMS_ITS | Clinical Summary ---
Author Organization [facility] Address [address] [place] [address] Phone Care Team Providers Care Respiratory Therapy Assistant Name Role Phone Amie Black PA-C Primary Care Provider Allergies No known active allergies Medications Medication Sig Dispensed Refills Start Date End Date Status omeprazole (PRILOSEC) 20 MG capsule Take 20 mg by mouth daily. Active albuterol 90 mcg/actuation inhaler Inhale 2 puffs into the lungs every 6 (six) hours as needed for wheezing. Active lisinopril (PRINIVIL,ZESTRIL) 5 MG tabletIndications:B enign essential hypertension Take 1 tablet (5 mg total) by mouth daily. 30 tablet 2 07/20/2024 Active buPROPion (WELLBUTRIN SR) 100 MG SR 12 hr tablet Take 1 tablet (100 mg total) by mouth 2 (two) times a day with meals. 60 tablet 2 07/20/2024 Active lisinopril (PRINIVIL,ZESTRIL) 5 MG tabletIndications:B enign essential hypertension TAKE 1 TABLET (5 MG TOTAL) BY MOUTH DAILY. 90 tablet 06/07/2024 07/20/2024 Discontinued (Reorder) Active Problems Problem Noted Date Diagnosed Date Routine general medical exam ination at a health care facility 05/02/2024 Assessment & Plan (05/02/2024 3:41 PM EST): Routine lab work ordered. Need for hepatitis C screening test 05/02/2024 Assessment & Plan (05/02/2024 3:41 PM EST): One-time screening ordered. Screening for human immunodeficiency virus 05/02 Assessment & Plan (05/02/2024 3:41 PM EST): One-time screening ordered. Need for hepatitis B screening test 05/02/2024 Assessment & Plan (05/02/2024 3:41 PM EST): One-time screening ordered. Screening for prostate cancer 05/02/2024 Assessment & Plan (05/02/2024 3:41 PM EST): PSA ordered. He does note increased urinary frequency but denies weak stream, dribbling, leaking. Routine screening for STI (sexually transmitted infection) 05/02/2024 Assessment & Plan (05/02/2024 3:41 PM EST): He states he has not been sexually active in 6 months but has been sexually active within the past year. Will obtain routine STI screening. Moderate episode of recurrent major depressive d isorder 05/02/2024 Assessment & Plan (07/20/2024 2:53 PM EDT): His depression score has increased to 14, indicating worsening symptoms. Wellbutrin 100 mg twice daily will be initiated to manage his depression and potentially aid in weight loss by increasing energy levels. The potential side effects, including a slight increase in blood pressure, were discussed. He is advised to moderate alcohol intake as it can contribute to weight gain and increased blood pressure. Assessment & Plan (05/02/2024 3:43 PM EST): Patient noted to have depression where he questions what the point of life is and whether or not he should be . He denies any self-harm/SI/HI. Mostly this presents as intrusive thoughts without actions. No anhedonia. PHQ-9 score of 11 (moderate depression). He is interested in therapy, [facility] referral placed. Currently not on any medications, discussed SSRIs with him as first-line treatment for depression. He would like to hold off of medication for now and follow-up at next visit. Impaired fasting glucose 05/02/2024 Assessment & Plan (05/02/2024 3:43 PM EST): Hemoglobin A1c ordered. Obesity (BMI 35.0-39.9 without comorbidity) 04/19 Assessment & Plan (07/20/2024 2:53 PM EDT): He has gained 8 pounds after initially losing weight. He plans to return to his previous method of calorie counting, which was effective for him. He is encouraged to increase physical activity, such as walking the dog and using the bike trail. Assessment & Plan (05/02/2024 3:45 PM EST): Patient noted to be obese. Discussed in length regarding diet and exercise. Discussed with the patient about a calorie deficit, I do not think that 1800 micki a day would be enough for him, discussed possibly increasing that slightly so he does not put his body into starvation mode. I also discussed with him different options in regards to diet including meal prepping. Discussed that he should have a well-balanced diet including protein and fruits and vegetables for fiber intake. Discussed how elimination diet, like cutting out carbohydrates, is not usually recommended for most people as this is not sustainable. I also discussed that exercise coinciding with diet will also help him lose weight. Mild intermittent asthma without complication Assessment & Plan (05/02/2024 3:45 PM EST): Uses albuterol inhaler as needed. Kidney abscess 05/02/2024 Assessment & Plan (05/02/2024 3:46 PM EST): Per the patient he was hospitalized at [facility] for a kidney abscess that was drained and on antibiotics. We do not have these records at all, records have been requested. Advised him to continue follow-up with urology at [facility]. Colon cancer screening 05/02/2024 Assessment & Plan (05/02/2024 3:46 PM EST): Patient noted to have a colonoscopy a few months ago, however we do not have these records. Will request records to determine the follow-up. Benign essential hypertension 05/02/2024 Assessment & Plan (07/20/2024 2:53 PM EDT): He has not started taking lisinopril due to an prescription. A new order for lisinopril will be placed, and he is advised to start the medication. The potential side effect of Wellbutrin on blood pressure was discussed, and the importance of starting lisinopril was emphasized. He should continue taking his blood pressure at home. Will follow-up in 4 weeks to reassess. Assessment & Plan (05/02/2024 3:48 PM EST): Patient noted to have a blood pressure today 150/86. Previous blood pressure in urgent care was 146/100 back in November 2023. Patient denies history of elevated blood pressure. Advised the patient to start taking his blood pressure at home when he is most relaxed at the same time every day. He is agreeable and will log with these blood pressures. Will follow-up in 4 weeks to reassess. Encounters Date Type Department Care Team Description 07/26/2024 11:55 AM EDT - 07/26/2024 11:59 PM EDT Hospital Encounter [facility] Laboratory [address] [place] [address] Amie Black PA-C Discharge Disposition: Home or Self Care 07/26/2024 Transcribe Orders [facility] [address] [place] [address] Mariama Vo MD Screening for prostate cancer (Primary Dx); Special screening for malignant neoplasm of prostate 07/20/2024 1:40 PM EDT Office Visit [facility] [address] [place] [address] Amie Balck PA-C Colon cancer screening (Primary Dx); Benign essential hypertension; Obesity (BMI 35.0-39.9 without comorbidity); Moderate episode of recurrent major depressive disorder 06/08/2024 Telephone [facility] [address] [place] [address] Amie Black PA-C 06/07/2024 9:30 AM EST - 06/07/2024 11:59 PM EST Hospital Encounter [facility] [address] [place] [address] Amie Black PA-C Discharge Disposition: Home or Self Care 06/07/2024 9:00 AM EST Office Visit [facility] [address] [place] [address] Amie Black PA-C Benign essential hypertension (Primary Dx); Obesity (BMI 35.0-39.9 without comorbidity); Moderate episode of recurrent major depressive disorder 06/07/2024 Refill [facility] [address] [place] [address] Amie Black PA-C Med Change Request 05/25/2024 Telephone [facility] [address] [place] [address] Amie Black PA-C 05/23/2024 9:51 AM EST - 05/23/2024 11:59 PM EST Hospital Encounter [facility] [address] [place] [address] Amie Black PA-C Discharge Disposition: Home or Self Care from Last 3 Months Immunizations No known immunizations Social History Tobacco Use Types Packs/Day Years Used Date Smoking Tobacco: Never Smokeless Tobacco: Never Tobacco Cessation:Counseling Given: Not Answered Alcohol Use Standard Drinks/Week Comments Yes 0 (1 standard drink = 0.6 oz pur e alcohol) 3-4 drinks, 2-4 x month Child or Family Care Answer Date Record ed Do you have problems with on e of the following making it difficult for you to work, study, or receive health care? No 05/02/2024 Education Answer Date Recorded Are you interested in help w ith more adult education (for example, completing high school, GED, job training, learning the [place] language, technical skills, or developing parenting skills)? No 05/02/2024 Are you concerned about learning? Not on file 05/02/2024 No 05/02/2024 Yes 05/02/2024 Food Answer Date Recorded Within the past 6 months we worried whether our food would run out before we got money to buy more. Never True 05/02/2024 Within the past 6 months the food we bought just didn't last and we didn't have enough money to get more. Never True Residential Stability Answer Date Recor ded What is your housing situation today? I have selena sing 05/02/2024 How many times have you move d in the past 12 months? Zero (I did not move) 05/02/2024 Paying for Meds Answer Date Recorded Do you have trouble paying for medicines? No 05/02/2024 Paying Utility Bills Answer Date Record ed Do you have trouble paying your heating or elect ricity bill? No 05/02/2024 Transportation Answer Date Recorded Has the lack of transportati on kept you from medical appointments or from getting medications? No 05/02/2024 Digital Access Answer Date Recorded No 05/02/2024 Yes 05/02/2024 Do you have reliable internet access at home? Ye s 05/02/2024 Do you have a device (e.g., phone, tablet, computer) with a working camera? Yes 05/02/2024 SNAP & WIC Answer Date Recorded Do you receive benefits from SNAP (the Supplemental Nutrition Assistance Program) or the Food Stamp Program? No 05/02/2024 SNAP??is a free program that can help you and your family get access to healthy foods, nutrition classes, utility discounts, and more. Would you be interested in learning more? No 05/02/2024 Can we help you enroll in SNAP? Not on file 05/02/2024 Benefits received from WIC? Not on file 04/19 WIC is a free program, interested in learning mo re? Not on file 05/02/2024 Can we help you enroll in WIC? Not on file 0 05/02/2024 Intimate Partner Violence Answer Date R ecorded Denied Basic Needs Not on file 05/02/2024 In the past 12 months have y ou been in a relationship with a person who hurts, threatens, or tries to control you? No 05/02/2024 Worried food would run out Not on file 05/02 In the past 12 months have y ou been in a relationship with a person who hurts, threatens, or tries to control you? No 05/02/2024 Sex and Gender Information Value Date Recorded Sex Assigned at Male 03/22/2023 12:42 PM EST Gender Identity Male 03/22/2023 12:42 PM EST Sexual Orientation Straight 03/22/2023 12 :42 PM EST Last Filed Vital Signs Vital Sign Reading Time Taken Comments Blood Pressure 150/98 07/20/2024 1:42 PM EDT Pulse 85 07/20/2024 1:42 PM EDT Temperature 36.3 ??C (97.3 ??F) 07/20/2024 1:42 PM ED T Respiratory Rate 20 07/20/2024 1:42 PM EDT Oxygen Saturation 96% 07/20/2024 1:42 PM EDT Inhaled Oxygen Concentration - - Weight 137.4 kg (303 lb) 07/20/2024 1:42 PM EDT Height 185.4 cm (6' 0.99 ) 07/20/2024 1:42 PM ED T Body Mass Index 39.98 07/20/2024 1:42 PM EDT Plan of Treatment Upcoming Encounters Date Type Department Care Team (Late st Contact Info) Description 08/18/2024 1:00 PM EDT Appointment [facility] Internal Medicine [address] [place] [address] Amie Black PA-C [address] [place] [address] [email or web address] Health Maintenance Due Date Last Done Comments Adult Td,Tdap Booster 1975 PNEUMOCOCCAL VACCINES (0-49 years) (1 of 2 - PCV) 07/22/1994 COLOGUARD 07/22/2020 COLONOSCOPY 07/22/2020 COLORECTAL CANCER SCREENING 07/22/2020 FIT TEST 07/22/2020 FOBT 07/22/2020 SIGMOIDOSCOPY 07/22/2020 VIRTUAL COLONOSCOPY 07/22/2020 COVID-19 VACCINE (2023-2 5 season) 2023 03/25/2021, 07/22/2020 REPEAT PHQ 08/19/2024 07/20/2024, 07/20/2024 BLOOD PRESSURE 01/19/2025 07/20/2024 DEPRESSION SCREENING 07/20/2025 07/20/2024, 07/20/2024 CREATININE LEVEL 07/26/2025 07/26/2024, 06/07/2024, 05/23/2024 POTASSIUM LEVEL 07/26/2025 07/26/2024, 06/07/2024, 05/23/2024 SCREENING FOR DIABETES 07/27/2027 , 05/23/2024 LIPID PANEL 05/23/2029 05/23/2024 HEPATITIS C SCREENING Completed 05/23/2024 HIV ONE-TIME SCREENING (18-6 5 YEARS) Completed 05/23/2024 SMOKING STATUS SCREENING (On ce After 26 Yrs) Completed 07/20/2024 HEPATITIS A VACCINES Aged Out No long er eligible based on patient's age to complete this topic HIB VACCINES Aged Out No longer eligi ble based on patient's age to complete this topic MENINGOCOCCAL VACCINES (ACWY) Aged Out No longer eligible based on patient's age to complete this topic Medical Devices Not on file Procedures Procedure Name Priority Date/Time Associated Diagnosis Comments PSA (SCREENING) Routine 07/26/2024 11:59 AM EDT Special screening for malignant neoplasm of prostate BASIC METABOLIC PANEL Routine 07/26/2024 11:54 AM EDT Benign essential hypertension CHLAMYDIA TRACHOMATIS AND NEISSERIA GONORRHOEAE NUCLEIC ACID DETECTION Routine 06/07/2024 9:53 AM EST Routine screening for STI (sexually transmitted infection) BASIC METABOLIC PANEL Routine 06/07/2024 9:30 AM EST Benign essential hypertension HEMOGLOBIN A1C Routine 05/23/2024 9:51 AM EST Routine general medical examination at a health care facility Impaired fasting glucose TSH WITH REFLEX Routine 05/23/2024 9:51 AM EST Routine general medical examination at a health care facility LIPID PANEL Routine 05/23/2024 9:51 AM EST Routine general medical examination at a health care facility COMPREHENSIVE METABOLIC PANEL Routine 05/23/2024 9:51 AM EST Routine general medical examination at a health care facility HEPATITIS B SURFACE ANTIBODY Routine 05/23/2024 9:51 AM EST Need for hepatitis B screening test Routine general medical examination at a health care facility SYPHILIS ANTIBODY SCREEN ASSAY Routine 05/23/2024 9:51 AM EST Routine screening for STI (sexually transmitted infection) PSA (SCREENING) Routine 05/23/2024 9:51 AM EST Screening for prostate cancer HIV-1/2 ANTIGEN/ANTIBODY Routine 05/23/2024 9:51 AM EST Screening for human immunodeficiency virus Routine general medical examination at a health care facility HEPATITIS C ANTIBODY, QUALITATIVE Routine 05/23/2024 9:51 AM EST Need for hepatitis C screening test Routine general medical examination at a health care facility HEPATITIS B SURFACE ANTIGEN Routine 05/23/2024 9:51 AM EST Need for hepatitis B screening test Routine general medical examination at a health care facility HEPATITIS B CORE ANTIBODY, TOTAL Routine 05/23/2024 9:51 AM EST Need for hepatitis B screening test Routine general medical examination at a health care facility HSV type 1,2, antibody, IgG Routine 05/23/2024 9:51 AM EST Routine screening for STI (sexually transmitted infection) from Last 3 Months Results * PSA (screening) (07/26/2024 11:59 AM EDT) Only the most recent of2 resultswithin the time period is included. PSA 0.43 0 - 4.00 ng/mL [facility] Comment: Test Methodology Nicole [email or web address] Patient results determined by assays using different manufacturers or methods may not be comparable. Blood 07/26/2024 11:5 9 AM EDT 07/26/2024 12:01 PM EDT Corlis Carr-Simone MD LAB BLOOD ORDERAB LES [address] [address] * (ABNORMAL) Basic metabolic panel (07/26/2024 11:54 AM EDT) Only the most recent of2 resultswithin the time period is included. SODIUM 138 133 - 146 mmol/L [facility] CHLORIDE 105 96 - 108 mmol/L [facility] POTASSIUM 4.1 3.3 - 5.1 mmol/L [facility] CO2 25 21 - 35 mmol/L [facility] BUN 14 6 - 19 mg/dL [facility] CREATININE 0.90 0.5 - 1.5 mg/dL [facility] GLUCOSE 125(H) 70 - 99 mg/dL [facility] CALCIUM 9.2 8.4 - 10.3 mg/dL [facility] EGFR 105 >59 mL/min/1.7 3m2 [facility] Comment:Estimated glomerular filtration rate calculated using the CKD-EPI refit equation. ANION GAP 12 10 - 20 mmol/L [facility] Blood 07/26/2024 11:5 4 AM EDT 07/26/2024 12:00 PM EDT Amie RUIZ-Henri LAB BLOOD ORDERABLES Performing Organization Address [facility] Co de Phone Number [address] [address] * Chlamydia trachomatis and Neisseria gonorrhoeae Nucleic Acid Amplification (06/07/2024 9:53 AM EST) CHLAMYDIA TRACHOMATIS Not Detected Not Detected [facility] NEISERIA GONORRHOEAE Not Detected Not Detected [facility] SPECIMEN TYPE URINE [facility] Urine (Urine) 06/07/2024 9:5 3 AM EST 06/07/2024 9:55 AM EST Amie Black PA-C NON CULTURE MICROBIO [address] [place] [address] [place] [address] * HSV type 1,2, antibody, IgG (05/23/2024 9:51 AM EST) HSV 1 Ab, IgG Negative Negative [facility] HSV TYPE 2 AB, IGG Negative Negative [facility] Blood 05/23/2024 9:51 AM EST 05/23/2024 10:00 AM EST Amie Black PA-C LAB BLOOD ORDERABLES [facility] [address] [place] [address] * (ABNORMAL) Comprehensive metabolic panel (05/23/2024 9:51 AM EST) SODIUM 139 133 - 146 mmol/L [facility] POTASSIUM 4.2 3.3 - 5.1 mmol/L [facility] Comment:Specimen slightly he molyzed, result may be falsely elevated. CHLORIDE 105 96 - 108 mmol/L [facility] CO2 23 21 - 35 mmol/L [facility] BUN 15 6 - 19 mg/dL [facility] CREATININE 0.60 0.5 - 1.5 mg/dL [facility] GLUCOSE 104(H) 70 - 99 mg/dL [facility] ALBUMIN 4.0 3.9 - 4.8 g/dL [facility] TOTAL PROTEIN 8.1(H) 6.5 - 8.0 g/dL [facility] CALCIUM 9.0 8.4 - 10.3 mg/dL [facility] ALKALINE PHOSPHATASE 86 39 - 117 U/L [facility] TOTAL BILIRUBIN 0.5 0.0 - 1.2 mg/dL [facility] AST 37 0 - 37 U/L [facility] ALT 36 0 - 40 U/L [facility] GLOBULIN 4.1 1 - 4.8 g/dL [facility] EGFR 119 >59 mL/min/1.7 3m2 [facility] Comment:Estimated glomerular filtration rate calculated using the CKD-EPI refit equation. ANION GAP 15 10 - 20 mmol/L [facility] Blood 05/23/2024 9:51 AM EST 05/23/2024 9:59 AM EST Amie Castilloy PA-C LAB BLOOD ORDERABLES [address] [address] * HIV-1/2 antigen/antibody (05/23/2024 9:51 AM EST) HIV-1/2 Antigen/Antibo dy NON-REACTI VE NON-REACTI VE [facility] Blood 05/23/2024 9:51 AM EST 05/23/2024 10:00 AM EST Amie Castilloy PA-C LAB BLOOD ORDERABLES Performing Organization Address [facility]/ZIP Co de Phone Number [address] [address] * TSH with reflex (05/23/2024 9:51 AM EST) TSH 1.82 0.27 - 4.20 uIU/mL [facility] Blood 05/23/2024 9:51 AM EST 05/23/2024 9:59 AM EST Amie Castilloy PA-C LAB BLOOD ORDERABLES Performing Organization Address City/[facility]/ZIP Co de Phone Number [address] [address] * Hepatitis C antibody, qualitative (05/23/2024 9:51 AM EST) HCV NON-REACTIV E NON-REACTI VE [facility] Blood 05/23/2024 9:51 AM EST 05/23/2024 9:59 AM EST Amie Castilloy PA-C LAB BLOOD ORDERABLES [address] [address] * Hepatitis B core antibody, total (05/23/2024 9:51 AM EST) HEP B CORE AB, TOT NON-REACTI VE NON-REACTI VE [facility] Blood 05/23/2024 9:51 AM EST 05/23/2024 9:59 AM EST Amie Black PA-C LAB BLOOD ORDERABLES [address] [address] * Syphilis antibody screen (05/23/2024 9:51 AM EST) RPR NON-REACTIV E NON-REACTI VE [facility] Blood 05/23/2024 9:51 AM EST 05/23/2024 9:59 AM EST AmieSell [employer] PA-C LAB BLOOD ORDERABLES [address] [address] * Hepatitis B surface antibody (05/23/2024 9:51 AM EST) HBV SURFACE ANTIBODY Negative [facility] Comment: Unvaccinated: Negative Vaccinated: Positive Blood 05/23/2024 9:51 AM EST 05/23/2024 9:59 AM EST [facility] Scali PA-C LAB BLOOD ORDERABLES Performing Organization Address City/[facility]/ZIP Co de Phone Number [address] [address] * Hepatitis B surface antigen (05/23/2024 9:51 AM EST) HBV SURFACE ANTIGEN NON-REACTI VE NON-REACTI VE [facility] Blood 05/23/2024 9:51 AM EST 05/23/2024 9:59 AM EST Amie RUIZ-C LAB BLOOD ORDERABLES Performing Organization Address City/[facility] Co de Phone Number [address] [address] * Hemoglobin A1c (05/23/2024 9:51 AM EST) HEMOGLOBIN A1C 5.6 4.3 - 5.8 % [facility] Blood 05/23/2024 9:51 AM EST 05/23/2024 10:00 AM EST [facility] Sofia RUIZ-C LAB BLOOD ORDERABLES Performing Organization Address [facility] Phone Number [address] [address] * Lipid panel (05/23/2024 9:51 AM EST) HDL 41 mg/dL [facility] Comment: ? Interpretation <40 mg/dL: Low HDL cholesterol (major risk factor for CHD) Greater than or equal to 60 mg/dL: High HDL cholesterol ( negative risk factor for CHD) HDL - cholesterol is affected by a number of factors, e.g. smoking, excerise, hormones, sex and age. CHOLESTEROL 166 0 - 240 mg/dL [facility] TRIGLYCERIDES 102 30 - 160 mg/dL [facility] LDL 105 50 - 129 mg/dL [facility] Comment: LDL levels in terms of risk for coronary heart disease: <100 mg/dL: Optimal 100-129 mg/dL: Near or above optimal 130-159 mg/dL: Borderline high 160-189 mg/dL: High >190 mg/dL: Very High CARDIAC RISK RATIO 4.0 3.4 - 5.0 [facility] Blood 05/23/2024 9:51 AM EST 05/23/2024 10:00 AM EST Amie RUIZ-C LAB BLOOD ORDERABLES Performing Organization Address [facility]/ZIP Co de Phone Number [address] [place] [address] from Last 3 Months Care Teams Respiratory Therapy Assistant Relationship Specialty Start Date End Date Amie Black PA-C [address] [place] [address] [email or web address] PCP - General Physician Science Specialist 05/02/24 Additional Source Comments The information contained in this document represents components of the legal health record. It is not the complete legal health record.[facility]
--- OUTSIDE RECORDS SUMMARY | 2024-08-01 13:13 | XMS_ITS ---
Author Organization [facility] Address [address] [place] [address] Care Team Providers Care Typewriter Repairer Name Role Phone Amari Funk Jr Primary Care Provider [phone] REASON FOR VISIT screening colon Encounters Encounter Location Date Provider Diagnosis [facility] Outpatient [address], [place] [id number] 01/18/2024 Amari Funk Jr Colon cancer screening Z12.11 and Colon polyps K63.5 Assessments Encounter Date Diagnosis (ICD Code) Assessment Notes Treatment Notes Treatment Clinical Notes Section Notes 01/18/2024 Colon cancer screening (ICD-10 - Z12.11) 01/18/2024 Colon polyps (ICD-10 - K63.5) Plan Of Treatment No Information Progress Notes * NHUNG CAMACHODOB:1975 (49 yo M)Acc No.[id number]:01/18/2024 COLON WITH MAC Patient:?NHUNG CAMACHO Provider:?Amari Funk MD :1975???Age:48 Y???Sex:Male Tyrese e:01/18/2024 Address[id number] Subjective: * Chief Complaints: * ???1. Screening colon. * Medical History:? Objective: * Vitals:? Assessment: * Assessment: 1.?Colon cancer screening - Z12.11 (Primary)???2.?Colon polyps - K63.5??? Plan: * Treatment: * Procedure Codes:?99498 LESIO N REMOVAL COLONOSCOPY * * The named appointment provid er may or may not be the originator of this progress note, and it is not deemed complete until electronically signed by the appointment provider. Sign off status: Pending * Provider:?Amari Funk MD Date:?1 Generated for Rudy chadwick/David/Bentleyitting on:?08/01/2024 01:12 PM EDT
--- OUTSIDE RECORDS SUMMARY | 2024-08-01 13:13 | XMS_ITS | Encounter Summary ---
Author Organization [facility] Address [address] [place] [address] Phone Care Team Providers Care Talent Acquisition Director Name Role Phone Amie Black PA-C Primary Care Provider Encounter Details Date Type Department Care Team (Latest Contact Info) Description 07/26/2024 11:55 AM EDT - 07/26/2024 11:59 PM EDT Hospital Encounter [facility] [address] [place] [address] Amie Black PA-C [address] [place] [address] maria Discharge Disposition: Home or Self Care Social History Tobacco Use Types Packs/Day Years Used Date Smoking Tobacco: Never Smokeless Tobacco: Never Alcohol Use Standard Drinks/Week Comments Yes 0 [...] high school, GED, job training, learning the [place] language, technical skills, or developing parenting skills)? [...] your housing situation today? I have selena muniz 05/02/2024 How many times have you move [...] Orientation Straight 03/22/2023 12 :42 PM EST documented as of this encounter Medications at Time of Discharge Medication Sig Dispensed Refills Start Date End Date albuterol 90 mcg/actuation inhaler Inhale 2 puffs into the lungs every 6 (six) hours as needed for wheezing. buPROPion (WELLBUTRIN SR) 100 MG SR 12 hr tablet Take 1 tablet (100 mg total) by mouth 2 (two) times a day with meals. 60 tablet 2 07/20/2024 lisinopril (PRINIVIL,ZESTRIL) 5 MG tabletIndications:Benign essential hypertension Take 1 tablet (5 mg total) by mouth daily. 30 tablet 2 07/20/2024 omeprazole (PRILOSEC) 20 MG capsule Take 20 mg by mouth daily. documented as of this encounter Plan of Treatment Upcoming Encounters Date Type Department Care Team (Late st Contact Info) Description 08/18/2024 1:00 PM EDT Appointment [facility] Internal Medicine [address] [place] [address] Amie Black PA-C [address] [place] [address] [email or web address] documented as of this encounter Procedures Procedure Name Priority Date/Time Associated Diagnosis Comments PSA (SCREENING) Routine 07/26/2024 11:59 AM EDT Special screening for malignant neoplasm of prostate BASIC METABOLIC PANEL Routine 07/26/2024 11:54 AM EDT Benign essential hypertension documented in this encounter Results * PSA (screening) (07/26/2024 11:59 AM EDT) PSA 0.43 0 - 4.00 ng/mL [facility] Comment: Test Methodology Nicole [email or web address] Patient results determined by assays using different manufacturers or methods may not be comparable. Blood 07/26/2024 11:5 9 AM EDT 07/26/2024 12:01 PM EDT Mariama Vo MD LAB BLOOD ORDERAB LES [address] [address] * (ABNORMAL) Basic metabolic panel (07/26/2024 11:54 AM EDT) SODIUM 138 133 - 146 mmol/L [facility] CHLORIDE 105 96 - 108 mmol/L [facility] POTASSIUM 4.1 3.3 - 5.1 mmol/L [facility] CO2 25 21 - 35 mmol/L [facility] BUN 14 6 - 19 mg/dL [facility] CREATININE 0.90 0.5 - 1.5 mg/dL [facility] GLUCOSE 125(H) 70 - 99 mg/dL [facility] CALCIUM 9.2 8.4 - 10.3 mg/dL [facility] EGFR 105 >59 mL/min/1.7 3m2 [facility] Comment:Estimated glomerular filtration rate calculated using the CKD-EPI refit equation. ANION GAP 12 10 - 20 mmol/L [facility] Blood 07/26/2024 11:5 4 AM EDT 07/26/2024 12:00 PM EDT Amie Black PA-C LAB BLOOD ORDERABLES Performing Organization Address City/[facility]/ZIP Co de Phone Number [address] [address] documented in this encounter Visit Diagnoses Diagnosis Benign essential hypertension Essential hypertension, benign Special screening for malignant neoplasm of prostate documented in this encounter Additional Health Concerns Assessment Noted Time PHQ-9 Depression Total Score: 14 025 1:57 PM EDT PHQ-2 Depression Total Score: 4 07/21/19 25 1:57 PM EDT documented as of this encounter Care Teams Talent Acquisition Director Relationship Specialty Start Date End Date Amie Black PA-C [address] [place] [address] [email or web address] PCP - General Physician Fiction And Nonfiction Writer Prose 05/02/24 documented as of this encounter Additional Source Comments The information contained in this document represents components of the legal health record. It is not the complete legal health record.[facility]
== END 2024-08-01 12:24 | disposition home or self-care (01) ==
LOC: HO.HUSH 10:51
PROVIDERS: Visit Provider Urology
DX: Z13.9 Encounter for screening, unspecified (principal)

== ENCOUNTER 2024-08-01 10:51 | Outpatient (REF) | payer MEDICAID, SELFPAY ==
[2024-08-01 17:01] LABS: Urine Cytology See Pathology rpt
--- OUTSIDE RECORDS SUMMARY | 2024-08-01 18:31 | XMS_ITS | Clinical Summary ---
Author Organization [facility] Address [address] [place] [address] Phone Care Team Providers Care Supervisor [employer]uminum Boat Assembly Name Role Phone Amie Black PA-C Primary [...] (moderate depression). He is interested in therapy, [employer] referral placed. Currently not on any medications, [...] Per the patient he was hospitalized at [facility] for a kidney abscess that was drained and on antibiotics. We do not have these records at all, records have been requested. Advised him to continue follow-up with urology at [facility]. Colon cancer screening 05/02/2024 Assessment & [...] 11:59 PM EDT Hospital Encounter [facility] Laboratory [address] [place] [address] Amie Black PA-C Discharge Disposition: Home or Self Care 07/26/2024 Transcribe Orders [facility] [address] [place] [address] Mariama Vo MD Screening for prostate cancer (Primary Dx); Special screening for malignant neoplasm of prostate 07/20/2024 1:40 PM EDT Office Visit [facility] Internal Medicine [address] [place] [address] Amie Black PA-C Colon cancer screening (Primary Dx); Benign essential hypertension; Obesity (BMI 35.0-39.9 without comorbidity); Moderate episode of recurrent major depressive disorder 06/08/2024 Telephone [facility] Internal Medicine [address] [place] [address] Amie Black PA-C 06/07/2024 9:30 AM EST - 06/07/2024 11:59 PM EST Hospital Encounter [facility] [address] [place] [address] Amie Black PA-C Discharge Disposition: Home or Self Care 06/07/2024 9:00 AM EST Office Visit [facility] Internal Medicine [address] [place] [address] Amie Black PA-C Benign essential hypertension (Primary Dx); Obesity (BMI 35.0-39.9 without comorbidity); Moderate episode of recurrent major depressive disorder 06/07/2024 Refill [facility] Internal Medicine [address] [place] [address] Amie Black PA-C Med Change Request 05/25/2024 Telephone [facility] Internal Medicine [address] [place] [address] Amie Black PA-C 05/23/2024 9:51 AM EST - 05/23/2024 11:59 PM EST Hospital Encounter [facility] [address] [place] [address] Amie Black PA-C Discharge Disposition: Home or [...] high school, GED, job training, learning the Thai language, technical skills, or developing parenting skills)? [...] Info) Description 08/18/2024 1:00 PM EDT Appointment [facility] Internal Medicine [address] [place] [address] Amie Black PA-C [address] [place] [address] [email or web address] Health Maintenance Due Date Last Done Comments [...] included. PSA 0.43 0 - 4.00 ng/mL [facility] Comment: Test Methodology Nicole [email or web address] Patient results determined by assays using different manufacturers or methods may not be comparable. Blood 07/26/2024 11:5 9 AM EDT 07/26/2024 12:01 PM EDT Corlis Carr-Simone MD LAB BLOOD ORDERAB LES [address] [address] * (ABNORMAL) Basic metabolic panel (07/26/2024 11:54 AM EDT) Only the most recent of2 resultswithin the time period is included. SODIUM 138 133 - 146 mmol/L [facility] CHLORIDE 105 96 - 108 mmol/L [facility] POTASSIUM 4.1 3.3 - 5.1 mmol/L [facility] CO2 25 21 - 35 mmol/L [facility] BUN 14 6 - 19 mg/dL [facility] CREATININE 0.90 0.5 - 1.5 mg/dL [facility] GLUCOSE 125(H) 70 - 99 mg/dL [facility] CALCIUM 9.2 8.4 - 10.3 mg/dL [facility] EGFR 105 >59 mL/min/1.7 3m2 [facility] Comment:Estimated glomerular filtration rate calculated using the CKD-EPI refit equation. ANION GAP 12 10 - 20 mmol/L [facility] Blood 07/26/2024 11:5 4 AM EDT 07/26/2024 12:00 PM EDT Amie RUIZ-Henri LAB BLOOD ORDERABLES Performing Organization Address [facility] Co de Phone Number [address] [address] * Chlamydia trachomatis and Neisseria gonorrhoeae Nucleic Acid Amplification (06/07/2024 9:53 AM EST) CHLAMYDIA TRACHOMATIS Not Detected Not Detected [facility] NEISERIA GONORRHOEAE Not Detected Not Detected [facility] SPECIMEN TYPE URINE [facility] Urine (Urine) 06/07/2024 9:5 3 AM EST 06/07/2024 9:55 AM EST Amie Black PA-C NON CULTURE MICROBIO [address] [address] [place] [address] * HSV type 1,2, antibody, IgG (05/23/2024 9:51 AM EST) HSV 1 Ab, IgG Negative Negative [facility] HSV TYPE 2 AB, IGG Negative Negative [facility] Blood 05/23/2024 9:51 AM EST 05/23/2024 10:00 AM EST Amie Black PA-C LAB BLOOD ORDERABLES [facility] [address] [place] [address] * (ABNORMAL) Comprehensive metabolic panel (05/23/2024 9:51 AM EST) SODIUM 139 133 - 146 mmol/L [facility] POTASSIUM 4.2 3.3 - 5.1 mmol/L [facility] Comment:Specimen slightly he molyzed, result may be falsely elevated. CHLORIDE 105 96 - 108 mmol/L [facility] CO2 23 21 - 35 mmol/L [facility] BUN 15 6 - 19 mg/dL [facility] CREATININE 0.60 0.5 - 1.5 mg/dL [facility] GLUCOSE 104(H) 70 - 99 mg/dL [facility] ALBUMIN 4.0 3.9 - 4.8 g/dL [facility] TOTAL PROTEIN 8.1(H) 6.5 - 8.0 g/dL [facility] CALCIUM 9.0 8.4 - 10.3 mg/dL [facility] ALKALINE PHOSPHATASE 86 39 - 117 U/L [facility] TOTAL BILIRUBIN 0.5 0.0 - 1.2 mg/dL [facility] AST 37 0 - 37 U/L [facility] ALT 36 0 - 40 U/L [facility] GLOBULIN 4.1 1 - 4.8 g/dL [facility] EGFR 119 >59 mL/min/1.7 3m2 [facility] Comment:Estimated glomerular filtration rate calculated using the CKD-EPI refit equation. ANION GAP 15 10 - 20 mmol/L [facility] Blood 05/23/2024 9:51 AM EST 05/23/2024 9:59 AM EST Amie Castilloy PA-C LAB BLOOD ORDERABLES [address] [address] * HIV-1/2 antigen/antibody (05/23/2024 9:51 AM EST) HIV-1/2 Antigen/Antibo dy NON-REACTI VE NON-REACTI VE [facility] Blood 05/23/2024 9:51 AM EST 05/23/2024 10:00 AM EST Amie Castilloy PA-C LAB BLOOD ORDERABLES Performing Organization Address [facility]/ZIP Co de Phone Number [address] [address] * TSH with reflex (05/23/2024 9:51 AM EST) TSH 1.82 0.27 - 4.20 uIU/mL [facility] Blood 05/23/2024 9:51 AM EST 05/23/2024 9:59 AM EST Amie Catsilloy PA-C LAB BLOOD ORDERABLES Performing Organization Address City/[facility]/ZIP Co de Phone Number [address] [address] * Hepatitis C antibody, qualitative (05/23/2024 9:51 AM EST) HCV NON-REACTIV E NON-REACTI VE [facility] Blood 05/23/2024 9:51 AM EST 05/23/2024 9:59 AM EST Amie Castilloy PA-C LAB BLOOD ORDERABLES [address] [address] * Hepatitis B core antibody, total (05/23/2024 9:51 AM EST) HEP B CORE AB, TOT NON-REACTI VE NON-REACTI VE [facility] Blood 05/23/2024 9:51 AM EST 05/23/2024 9:59 AM EST Amie Black PA-C LAB BLOOD ORDERABLES [address] [address] * Syphilis antibody screen (05/23/2024 9:51 AM EST) RPR NON-REACTIV E NON-REACTI VE [facility] Blood 05/23/2024 9:51 AM EST 05/23/2024 9:59 AM EST [employer] PA-C LAB BLOOD ORDERABLES [address] [address] * Hepatitis B surface antibody (05/23/2024 9:51 AM EST) HBV SURFACE ANTIBODY Negative [facility] Comment: Unvaccinated: Negative Vaccinated: Positive Blood 05/23/2024 9:51 AM EST 05/23/2024 9:59 AM EST [facility] drchrono PA-C LAB BLOOD ORDERABLES Performing Organization Address City/[facility]/ZIP Co de Phone Number [address] [address] * Hepatitis B surface antigen (05/23/2024 9:51 AM EST) HBV SURFACE ANTIGEN NON-REACTI VE NON-REACTI VE [facility] Blood 05/23/2024 9:51 AM EST 05/23/2024 9:59 AM EST Amie RUIZ-C LAB BLOOD ORDERABLES Performing Organization Address City/[facility] Co de Phone Number [address] [address] * Hemoglobin A1c (05/23/2024 9:51 AM EST) HEMOGLOBIN A1C 5.6 4.3 - 5.8 % [facility] Blood 05/23/2024 9:51 AM EST 05/23/2024 10:00 AM EST [facility] Sofia RUIZ-C LAB BLOOD ORDERABLES Performing Organization Address [facility] Phone Number [address] [address] * Lipid panel (05/23/2024 9:51 AM EST) HDL 41 mg/dL [facility] Comment: ? Interpretation <40 mg/dL: Low HDL cholesterol (major risk factor for CHD) Greater than or equal to 60 mg/dL: High HDL cholesterol ( negative risk factor for CHD) HDL - cholesterol is affected by a number of factors, e.g. smoking, excerise, hormones, sex and age. CHOLESTEROL 166 0 - 240 mg/dL [facility] TRIGLYCERIDES 102 30 - 160 mg/dL [facility] LDL 105 50 - 129 mg/dL [facility] Comment: LDL levels in terms of risk for coronary heart disease: <100 mg/dL: Optimal 100-129 mg/dL: Near or above optimal 130-159 mg/dL: Borderline high 160-189 mg/dL: High >190 mg/dL: Very High CARDIAC RISK RATIO 4.0 3.4 - 5.0 [facility] Blood 05/23/2024 9:51 AM EST 05/23/2024 10:00 AM EST Amie RUIZ-C LAB BLOOD ORDERABLES Performing Organization Address [facility]/ZIP Co de Phone Number [address] [place] [address] from Last 3 Months Care Teams Supervisor [employer] Relationship Specialty Start Date End Date Amie Black PA-C [address] [place] [address] [email or web address] PCP - General Physician Workforce Management Analyst 05/02/24 Additional Source Comments The information contained in this document represents components of the legal health record. It is not the complete legal health record.[facility]
--- OUTSIDE RECORDS SUMMARY | 2024-08-01 18:31 | XMS_ITS | Encounter Summary ---
Author Organization [facility] Address [address] [place] [address] Phone Care Team Providers Care Electronic Repair Troubleshooter Name Role Phone Amie Black PA-C Primary Care Provider [phone] Encounter Details Date Type Department Care Team (Latest Contact Info) Description 07/26/2024 11:55 AM EDT - 07/26/2024 11:59 PM EDT Hospital Encounter [facility] [address] [place] [address] Amie Black PA-C [address] [place] [address] maria Discharge Disposition: Home or Self Care [...] high school, GED, job training, learning the [place] language, technical skills, or developing parenting skills)? [...] Info) Description 08/18/2024 1:00 PM EDT Appointment [facility] Internal Medicine [address] [place] [address] Amie Black PA-C [address] [place] [address] [email or web address] [email or web address] documented as of this encounter Procedures Procedure Name Priority Date/Time Associated Diagnosis Comments PSA (SCREENING) Routine 07/26/2024 11:59 AM EDT Special screening for malignant neoplasm of prostate BASIC METABOLIC PANEL Routine 07/26/2024 11:54 AM EDT Benign essential hypertension documented in this encounter Results * PSA (screening) (07/26/2024 11:59 AM EDT) PSA 0.43 0 - 4.00 ng/mL [facility] Comment: Test Methodology Nicole [email or web address] Patient results determined by assays using different manufacturers or methods may not be comparable. Blood 07/26/2024 11:5 9 AM EDT 07/26/2024 12:01 PM EDT Mariama Vo MD LAB BLOOD ORDERAB LES [address] [address] * (ABNORMAL) Basic metabolic panel (07/26/2024 11:54 AM EDT) SODIUM 138 133 - 146 mmol/L [facility] CHLORIDE 105 96 - 108 mmol/L [facility] POTASSIUM 4.1 3.3 - 5.1 mmol/L [facility] CO2 25 21 - 35 mmol/L [facility] BUN 14 6 - 19 mg/dL [facility] CREATININE 0.90 0.5 - 1.5 mg/dL [facility] GLUCOSE 125(H) 70 - 99 mg/dL [facility] CALCIUM 9.2 8.4 - 10.3 mg/dL [facility] EGFR 105 >59 mL/min/1.7 3m2 [facility] Comment:Estimated glomerular filtration rate calculated using the CKD-EPI refit equation. ANION GAP 12 10 - 20 mmol/L [facility] Blood 07/26/2024 11:5 4 AM EDT 07/26/2024 12:00 PM EDT Amie Black PA-C LAB BLOOD ORDERABLES Performing Organization Address City/[facility]/ZIP Co de Phone Number [address] [address] documented in this encounter Visit Diagnoses Diagnosis Benign essential hypertension Essential hypertension, benign Special screening for malignant neoplasm of prostate documented in this encounter Additional Health Concerns Assessment Noted Time PHQ-9 Depression Total Score: 14 025 1:57 PM EDT PHQ-2 Depression Total Score: 4 07/21/19 25 1:57 PM EDT documented as of this encounter Care Teams Electronic Repair Troubleshooter Relationship Specialty Start Date End Date Amie Black PA-C [address] [place] [address] [email or web address] PCP - General Physician Coloring Machine Operator 05/02/24 documented as of this encounter Additional Source Comments The information contained in this document represents components of the legal health record. It is not the complete legal health record.[facility]
== END 2024-08-01 10:52 | disposition home or self-care (01) ==
LOC: HO.LAB 10:51
PROVIDERS: Visit Provider Urology
DX: R31.29 Other microscopic hematuria (principal)
CPT/HCPCS: 81003; 88112

== ENCOUNTER 2024-08-30 14:25 | Outpatient (REF) | payer MEDICAID, SELFPAY ==
--- NOTE | ~2024-08-30 | US_ITS ---
CLINICAL HISTORY: R31.29 - Other microscopic hematuria US Renal Comparison: US/HI/SR - US RENAL BI - 12/11/23 09:34 EDT Findings: The right kidney is normal-size and measures 12.7 cm in length. The left kidney is enlarged in size, measuring 14.7 cm in length. Bilateral renal cortical echogenicity is within normal limits. 5 mm hyperechogenicity is seen in the left mid kidney. There is no evidence of hydronephrosis or mass. IMPRESSION: 1. Large sized left kidney containing a 5 mm hyperechogenicity, which may represent a nonobstructive stone. 2. Normal sonographic appearance of the right kidney. This document has been electronically signed by: Narendra Vitale on 08/31/2024 08:46:51
--- OUTSIDE RECORDS SUMMARY | 2024-08-30 14:28 | XMS_ITS | Patient Health Record ---
Author Organization [facility] Address [address] [place] [address] Care Team Providers Care Grocery Buyer Name Role Phone Amari Funk Jr Primary Care Provider [phone] Allergies Allergen (clinical drug ingredient) Drug/Non Drug Allergy documented on EMR Reaction Allergy Type Onset Date Status cats (uncoded) Unknown Allergy Activ e Results Component Value Reference Range Notes Pathology Reviewed date:01/27/2024 11:14:47 AM Interpretation: Performing Lab:[facility], [address] [place] [id number] Notes/Report: Name: Amos Cormier Age/Sex: 48/M : 1975 Unit#: [id number] Attend Dr: Amari Funk MD Re01/18/24 Status : [facility] Location: [place] Disch: SPEC : [id number] RECD : 01/18/24 STATUS: MARYBEL COUCH NUM: [id number] JESSICA: 01/18/241159 [facility] DR: Amari Funk MD ENTERED: 01/18/24 25 [...] microscopic examination, 2 pieces in cassette [facility] Signed (si gnature on file) Imelda Kiln 01/19/24 1602 END OF REPORT Reason For [...] Problem Status W/U Status Risk Notes Problem 500491060 Colon cancer screening (Z12.11) Active confirmed Problem Dysphagia (R13.10) Active confirmed Problem 50483922 Erosive esophagi tis (K22.10) Active confirmed Problem 860889479 Gastroesophageal reflux disease with esophagitis, unspecified whether hemorrhage (K21.00) Active confirmed Vital Signs Temperature 96.8 degrees Fahrenheit 11/22/2023 Blood pressure diastolic 00 mm Hg 11/22/2023 Height 6 ft 2 in in 11/22/2023 Blood pressure systolic 000 mm Hg 11/22/2023 Weight 286 lb 8 oz lbs 11/22/2023 BMI 36.78 kg/m2 11/22/2023 Encounters Encounter Location Date Provider Diagnosis [facility] Outpatient [address] [place] [id number] 01/18/2024 Amari Funk Jr Colon cancer screening Z12.11 and Colon polyps K63.5 [facility] [address] [place] [phone] 11/22/2023 Amari Funk Jr Colon cancer screening Z12.11 and Gastroesophageal reflux disease with esophagitis, unspecified whether hemorrhage K21.00 [facility] [address] [place] [phone] 01/03/2024 Amari Funk Jr [facility] [address] [place] [phone] 01/17/2024 Amari Funk Jr [facility] [address] [place] [phone] 01/27/2024 Amari Funk Jr [facility] [address] [place] [phone] 12/14/2023 Amari Funk Jr [facility] Outpatient [address] [place], [place] [id number] 12/14/2023 Amari Goodahmet Bacon Assessments Encounter Date Diagnosis (ICD Code) Assessment [...] Medicaid [address] [place] [address] [id number] AMOS CORMIER Self - patient is the insured MEDICAID OF [facility] [address] [place] [address] [id number] AMOS CORMIER Self - patient is the insured Medical (General) History Medical History History ICD Code Hypertension Erosive esophagitis, EGD 11/18 3, balloon dilation of Schatzki ring, biopsies negative for Goodwin's esophagus. Surgical History Surgery Date(Month/Year) endoscopy upper 2022
--- OUTSIDE RECORDS SUMMARY | 2024-08-30 14:28 | XMS_ITS ---
Author Organization [facility] Address [address] [place] [address] Care Team Providers Care Customer Project Manager Name Role Phone Amari Funk Jr Primary Care Provider [phone] REASON FOR VISIT pathology Encounters Encounter Location Date Provider Diagnosis [facility] [address] [place] [address] 01/27/2024 Amari Funk Jr Plan Of Treatment No Information Progress Notes * NHUNG CAMACHODOB:1975 (48 yo M)Acc No.[id number]:01/27/2024 Patient:?NHUNG CAMACHO :1975???Age:48 Y???Sex:Male Address:[address], [place], [address] * true * Date:? Generated for Rudy chadwick/David/eTransmitting on:?08/30/2024 02:28 PM EDT
--- OUTSIDE RECORDS SUMMARY | 2024-08-30 14:29 | XMS_ITS | Clinical Summary ---
Author Organization [facility] Address [address] [place] [address] Phone Care Team Providers Care Dockworker Name Role Phone Amie Black PA-C Primary Care Provider Allergies No known active allergies Medications omeprazole (PRILOSEC) 20 MG capsule Take 20 mg by mouth daily. Active albuterol 90 mcg/actuation inhaler Inhale 2 puffs into the lungs every 6 (six) hours as needed for wheezing. Active lisinopril (PRINIVIL,ZESTRIL ) 5 MG tabletIndications :Benign essential hypertension Take 1 tablet (5 mg total) by mouth daily. 30 tablet 2 07/20/2024 Active buPROPion (WELLBUTRIN SR) 100 MG SR 12 hr tablet Take 1 tablet (100 mg total) by mouth 2 (two) times a day with meals. 60 tablet 2 07/20/2024 Active Active Problems Problem Noted Date Diagnosed Date [...] (moderate depression). 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 Currently not on any medications, [...] Per the patient he was hospitalized at [facility] for a kidney abscess that was drained and on antibiotics. We do not have these records at all, records have been requested. Advised him to continue follow-up with urology at [facility]. Colon cancer screening 05/02/2024 Assessment & [...] PM EDT Hospital Encounter [facility] [address] [place] [address] Amie Black PA-C Discharge Disposition: Home or Self Care 07/26/2024 Transcribe Orders [facility] [address] [place] [address] Mariama Vo MD Screening for prostate cancer (Primary Dx); Special screening for malignant neoplasm of prostate 07/20/2024 1:40 PM EDT Office Visit [facility] [address] [place] [address] Amie Black PA-C Colon cancer screening (Primary Dx); Benign essential hypertension; Obesity (BMI 35.0-39.9 without comorbidity); Moderate episode of recurrent major depressive disorder 06/08/2024 Telephone [facility] [address] [place] [address] Amie Black PA-C 06/07/2024 9:30 AM EST - 06/07/2024 11:59 PM EST Hospital Encounter [facility] [address] [place] [address] Black, Amie, PA-C Discharge Disposition: Home or Self Care 06/07/2024 9:00 AM EST Office Visit [facility] [address] [place] [address] Amie Black PA-C Benign essential hypertension (Primary Dx); Obesity (BMI 35.0-39.9 without comorbidity); Moderate episode of recurrent major depressive disorder 06/07/2024 Refill [facility] [address] [place] [address] Amie Black PA-C Med Change Request from Last 3 Months Immunizations No known [...] high school, GED, job training, learning the Cuban language, technical skills, or developing parenting skills)? [...] is your housing situation today? I have selenaricky muniz 05/02/2024 How many times have you [...] Assigned at Male 03/22/2023 12:42 PM EST Legal Sex Male 12:29 PM EST Gender Identity Male 03/22/2023 12:42 [...] cm (6' 0.99 ) 07/20/2024 1:42 PM E DT Body Mass Index 39.98 07/20/2024 1:42 PM EDT Plan of Treatment Health Maintenance Due Date Last Done Comments Adult Td,Tdap Booster 1975 PNEUMOCOCCAL VACCINES (0-49 years) (1 of 2 - PCV) 07/22/1994 COLOGUARD 07/22/2020 COLONOSCOPY 07/22/2020 COLORECTAL CANCER SCREENING 07/22/2020 FIT TEST 07/22/2020 FOBT 07/22/2020 SIGMOIDOSCOPY 07/22/2020 VIRTUAL COLONOSCOPY 07/22/2020 COVID-19 VACCINE (2023-2 5 season) 2023 03/25/2021, 07/22/2020 BLOOD PRESSURE 01/19/2025 07/20/2024 CREATININE LEVEL 07/26/2025 07/26/2024, 06/07/2024, 05/23/2024 POTASSIUM LEVEL 07/26/2025 07/26/2024, 06/07/2024, 05/23/2024 DEPRESSION SCREENING 08/17/2025 08/17/2024, 08/17/2024 SCREENING FOR DIABETES 07/27/2027 , 05/23/2024 LIPID [...] 06/07/2024 9:30 AM EST Benign essential hypertension LIPID PANEL Routine 05/23/2024 9:51 AM EST Routine general medical examination at a health care facility HEPATITIS C ANTIBODY, QUALITATIVE Routine 05/23/2024 9:51 AM EST Need for hepatitis C screening test Routine general medical examination at a health care facility from Last 3 Months or Most Recently Relevant to Health Maintenance Results * PSA (screening) (07/26/2024 11:59 AM EDT) PSA 0.43 0 - 4.00 ng/mL [facility] Comment: Test Methodology Nicole [email or web address] Patient results determined by assays using different manufacturers or methods may not be comparable. Blood 07/26/2024 11:5 9 AM EDT 07/26/2024 12:01 PM EDT us Mariama Vo MD LAB BLOOD ORDERABLES Carlie hawkins Result [address] [address] * (ABNORMAL) Basic metabolic panel (07/26/2024 11:54 AM EDT) Only the most recent of2 resultswithin the time period is included. SODIUM 138 133 - 146 mmol/L [facility] CHLORIDE 105 96 - 108 mmol/L [facility] POTASSIUM 4.1 3.3 - 5.1 mmol/L [facility] CO2 25 21 - 35 mmol/L [facility] BUN 14 6 - 19 mg/dL [facility] CREATININE 0.90 0.5 - 1.5 mg/dL [facility] GLUCOSE 125(H) 70 - 99 mg/dL [facility] CALCIUM 9.2 8.4 - 10.3 mg/dL [facility] EGFR 105 >59 mL/min/1.7 3m2 [facility] Comment:Estimated glomerular filtration rate calculated using the CKD-EPI refit equation. ANION GAP 12 10 - 20 mmol/L [facility] Blood 07/26/2024 11:5 4 AM EDT 07/26/2024 12:00 PM EDT [facility] Sofia RUIZ-C LAB BLOOD ORDERABLES Final R esult Performing Organization Address [facility] Co de Phone Number [address] [address] * Chlamydia trachomatis and Neisseria gonorrhoeae Nucleic Acid Amplification (06/07/2024 9:53 AM EST) CHLAMYDIA TRACHOMATIS Not Detected Not Detected [facility] NEISERIA GONORRHOEAE Not Detected Not Detected [facility] SPECIMEN TYPE URINE [facility] Urine (Urine) 06/07/2024 9:5 3 AM EST 06/07/2024 9:55 AM EST [facility] NON CULTURE MICROBIOLOGY Fin al Result Performing Organization Address [facility] Co de Phone Number [address] [address] * Hepatitis C antibody, qualitative (05/23/2024 9:51 AM EST) HCV NON-REACTIV E NON-REACTI VE [facility] Blood 05/23/2024 9:51 AM EST 05/23/2024 9:59 AM EST [facility] Sofia PA-C LAB BLOOD ORDERABLES Final R esult Performing Organization Address [facility] Co de Phone Number [address] [address] * Lipid panel (05/23/2024 9:51 AM EST) HDL 41 mg/dL [facility] Comment: ? Interpretation <40 mg/dL: Low HDL cholesterol (major risk factor for CHD) Greater than or equal to 60 mg/dL: High HDL cholesterol ( negative risk factor for CHD) HDL - cholesterol is affected by a number of factors, e.g. smoking, excerise, hormones, sex and age. CHOLESTEROL 166 0 - 240 mg/dL [facility] TRIGLYCERIDES 102 30 - 160 mg/dL [facility] LDL 105 50 - 129 mg/dL [facility] Comment: LDL levels in terms of risk for coronary heart disease: <100 mg/dL: Optimal 100-129 mg/dL: Near or above optimal 130-159 mg/dL: Borderline high 160-189 mg/dL: High >190 mg/dL: Very High CARDIAC RISK RATIO 4.0 3.4 - 5.0 [facility] Blood 05/23/2024 9:51 AM EST 05/23/2024 10:00 AM EST us Amie Black PA-C LAB BLOOD ORDERABLES Final R esult [address] [address] from Last 3 Months or Most Recently Relevant to Health Maintenance Insurance [facility] [address] [place] [address] [place] [address] [address] [facility] Care Teams Dockworker Relationship Specialty Start Date End Date Amie Black PA-C [address] [place] [address] [email or web address] PCP - General Physician Ged Instructor 05/02/24 Additional Source Comments The information contained in this document represents components of the legal health record. It is not the complete legal health record.[facility]
--- OUTSIDE RECORDS SUMMARY | 2024-08-30 14:29 | XMS_ITS ---
Author Organization [facility] Address [address] [place] [address] Care Team Providers Care Voice Systems Engineer Name Role Phone Amari Funk Jr Primary Care Provider REASON FOR VISIT schmidt tab prep Encounters Encounter Location Date Provider Diagnosis [facility] [address] [place] [address] 01/17/2024 Amari Funk Jr Plan Of Treatment No Information Progress Notes * NHUNG CAMACHODOB:1975 (48 yo M)Acc No.[id number]:01/17/2024 Patient:?NHUNG CAMACHO :1975???Age:48 Y???Sex:Male Address:[address], [place], [address] * true * Date:? Generated for Rudy chadwick/David/eTransmitting on:?08/30/2024 02:28 PM EDT
--- OUTSIDE RECORDS SUMMARY | 2024-08-30 14:29 | XMS_ITS ---
Author Organization [facility] Address [address] [place] [address] Care Team Providers Care Obstetrics Tech Name Role Phone Amari Funk Jr Primary Care Provider REASON FOR VISIT screening colon Encounters Encounter Location Date Provider Diagnosis [facility] [place] [place] Outpatient [address], [place] [id number] 01/18/2024 Amari Funk Jr Colon cancer screening Z12.11 and Colon polyps K63.5 Assessments Encounter Date Diagnosis (ICD Code) Assessment Notes Treatment Notes Treatment Clinical Notes Section Notes 01/18/2024 Colon cancer screening (ICD-10 - Z12.11) 01/18/2024 Colon polyps (ICD-10 - K63.5) Plan Of Treatment No Information Progress Notes * NHUNG CAMACHODOB:1975 (49 yo M)Acc No.[id number]:01/18/2024 COLON WITH MAC Patient:?NHUNG CAMACHO Provider:?Amari Funk MD :1975???Age:48 Y???Sex:Male Tyrese e:01/18/2024 Address[id number] Subjective: * Chief Complaints: * ???1. Screening colon. * Medical History:? Objective: * Vitals:? Assessment: * Assessment: 1.?Colon cancer screening - Z12.11 (Primary)???2.?Colon polyps - K63.5??? Plan: * Treatment: * Procedure Codes:?33053 LESIO N REMOVAL COLONOSCOPY * * The named appointment provid er may or may not be the originator of this progress note, and it is not deemed complete until electronically signed by the appointment provider. Sign off status: Pending * Provider:?Amari Funk MD Date:?1 Generated for Rudy chadwick/David/Bentleyitting on:?08/30/2024 02:29 PM EDT
== END 2024-08-30 14:26 | disposition home or self-care (01) ==
LOC: HO.US 14:25
PROVIDERS: Visit Provider Urology
DX: R31.29 Other microscopic hematuria (principal)
CPT/HCPCS: 76775

== ENCOUNTER → 2024-08-30 14:27 | Outpatient (BNV) | payer MEDICAID, SELFPAY | PROVIDERS: Visit Provider Radiology Vascular & Interventional Radiology | DX: R93.422 Abnormal radiologic findings on diagnostic imaging of left kidney (principal) | CPT/HCPCS: 76775 ==

== ENCOUNTER 2024-09-15 16:14 | Outpatient (AMB) | payer MEDICAID, SELFPAY ==
--- NOTE | 2024-09-15 16:14 | A.OFFVIS_ITS ---
Intake Visit Reasons: 6-7WK follow up/ US Intake Note: Patient is present for a 6-7 week follow up/US * Renal US 08/31 Urology Medication:NONE Antibiotic Allergy:NONE Blood Thinner:NONE Farmworker Poultry Required: No Allergies No Known Allergies Allergy (Verified 09/15/24 16:15) HPI Comments Details: 09/15/24-- History of Present Illness The patient is a 49-year-old male presenting with concerns about his renal health, previously affected by pyelonephritis and a renal hematoma. A renal ultrasound performed on 09/01/23 indicated that his right subscapular hematoma has resolved, with no residual fluid detected. The ultrasound did reveal a questionable 5 mm nonobstructive stone in the left kidney, though its significance remains uncertain. The patient did note occasional right-sided pain which does not require any medication. have recommended scheduling a follow-up ultrasound in one year to monitor any changes, particularly regarding the kidney stone. Additionally, I advised routine PSA testing when the patient is approximately 50 years old to assess prostate health. Results - Recent renal ultrasound (09/01/23): Resolved right subscapular hematoma; possible 5 mm nonobstructive left kidney stone. 08/01/24--Amos is here for follow-up he states he has been doing well has noticed some changes in urination about 1 or 2 times at night. Denies irritative voiding symptoms discussed the importance of moderation and caffeine intake. He drinks 1 cup of coffee in the morning 3 cups of tea throughout the day. He states he has begun to feel some right flank discomfort with radiation towards the bladder. I will re-evaluate renal ultrasound. Urinalysis microscopic hematuria. Results: PSA-07/26/2024---0.43 ng/mL 02/07/2024--Amos was initially seen by me in consultation as an inpatient on 12/27/2023. He is here in follow-up visit. Follow-up renal ultrasound was done on 12/30/2023 which noted resolution of collection. The patient denies pain at this time. Urinalysis microscopic hematuria present. Amos denies history of or current nicotine use. Discussed re-evaluating in 6 months we will check UA and consider other evaluation such as cystoscopy if microscopic hematuria persists. Also discussed PSA screening. Will send urine for cytology. Consult date: 12/27/23-Amos was recently admitted and treated with abx for pyelonephitis and renal hematoma. He present with persistent pain, completed course of levaquin. CTAP concerning for renal abscess. [facility] Medical History Hx of drainage of abscess Kidney abscess History of esophageal dilatation Erosive esophagitis HTN (hypertension) Renal abscess GERD (gastroesophageal reflux disease) History of asthma Surgical History [place] teeth extracted History of esophagogastroduodenoscopy (EGD) Social History Household Members: None Housing: House Do you presently have visiting nurse or other home services: No Alcohol intake: current Alcohol intake frequency: holidays/special occasions only Alcohol type: hard liquor Patient Tobacco Use Status: Never used Tobacco Second Hand Smoke Exposure: No service: No Review of Systems Const All systems reviewed & are unremarkable except as noted in HPI and below Reports no additional complaints Eyes Reports no additional complaints ENT Reports no additional complaints Card Reports no additional complaints Resp Reports no additional complaints GI Reports no additional complaints Reports as per HPI Musc Reports no additional complaints Skin/Breast Reports system reviewed and no additional complaints, except as documented Neuro Reports no additional complaints Psych Reports no additional complaints Endo Reports no additional complaints Donal/Lymph Reports no additional complaints Aller/Immun Reports no additional complaints Telehealth Telehealth Telehealth Platform: [facility] Location of provider rendering services: practice address Location of patient: address on file Patient Identification confirmed using: Name, : Yes Telehealth method: video Patient verbally consented to treatment: Yes Patient verbally consented to billing insurance company: Yes Patient informed of any privacy concerns related to visit: Yes Results Reviewed Results Reviewed: Date of Service: 08/30/24 US Renal Comparison: US/FL/SR - US RENAL BI - 12/11/23 09:34 EDT Findings: The right kidney is normal-size and measures 12.7 cm in length. The left kidney is enlarged in size, measuring 14.7 cm in length. Bilateral renal cortical echogenicity is within normal limits. 5 mm hyperechogenicity is seen in the left mid kidney. There is no evidence of hydronephrosis or mass. IMPRESSION: 1. Large sized left kidney containing a 5 mm hyperechogenicity, which may represent a nonobstructive stone. 2. Normal sonographic appearance of the right kidney. Date of Service: 12/30/23 US RETROPERITONEAL LIMITED, RIGHT (RENAL ONLY) CLINICAL INFORMATION: Follow-up right renal subcapsular collection status post drain 12/27/2023. COMPARISON: CT abdomen and pelvis 12/25/2023. TECHNIQUE: Ultrasound of the right kidney was performed. FINDINGS: The right kidney measures 11.4 x 6.3 x 6.1 cm. No hydronephrosis. No significant residual collection is appreciated by ultrasound with some limitation due to the rib cage. IMPRESSION: No significant residual collection appreciated by ultrasound with some limitation due to the rib cage. Assessment & Plan Assessment & Plan (1) Hematoma of kidney: Code(s): S37.019A - Minor contusion of unspecified kidney, initial encounter Category: Medical (2) Right flank pain: Code(s): R10.9 - Unspecified abdominal pain Category: Medical (3) History of pyelonephritis: Code(s): Z87.448 - Personal history of other diseases of urinary system Category: Medical Plan Follow-up in 1 year renal ultrasound, PSA screening Patient Instructions: The patient had an opportunity to ask questions regarding treatment plan. The patient expressed understanding and agreement with the above treatment plan. The patient is aware they should contact our office by phone for worsening of th eir current condition or the appearance of new symptoms. Compliance is encouraged with any medications and followup testing that is ordered. It is a privilege to be allowed the opportunity to participate in the urologic care of your patient. If you have any questions or concerns regarding treatment for the above conditions please do not hesitate to contact me. The office telephone contact is [phone]. This note is constructed in part using voice recognition software. While every effort has been made to ensure accuracy global compensation analyst errors may have been included. Yours sincerely, Mariama Vo MD Scribe Plan - Not visible on output: Patient was informed and verbally consented to the use of an ambient scribe for clinic note documentation during this visit. Coding Level of Care Code Tele Est Pt Level 3 (15149) Diagnoses Hematoma of kidney S37.019A Right flank pain R10.9 History of pyelonephritis Z87.448
== END 2024-09-15 16:43 | disposition home or self-care (01) ==
LOC: HO.HUSH 16:14
PROVIDERS: Visit Provider Urology
DX: S37.019A Minor contusion of unspecified kidney, initial encounter (principal); R10.9 Unspecified abdominal pain; Z87.448 Personal history of other diseases of urinary system
CPT/HCPCS: 98006